=== PATIENT | female | born 1935 | race Caucasian/White ===

== ENCOUNTER 2016-09-22 06:42 | Inpatient (IN) | payer OTHER ==
[2016-09-07 11:49] VITALS: Ht 154.9 cm; Wt 54.8 kg
--- NOTE | 2016-09-07 12:32 | PAT Medication Instructions ---
Service Date September 07, 2016. Current Home Medication List Aspirin (Aspirin), 2 TAB PO BID Calcium Carbonate-Vitamin D (Calcium 600 + D), 1 TAB PO BID Carbidopa-Levodopa (Sinemet Cr 25MG/100MG), 1.5 TAB PO TID Cyanocobalamin (Vitamin B12), 1,000 MCG PO QAM Duloxetine HCl (Cymbalta), Unknown Dose PO QAM Gabapentin (Gabapentin), 1 CAP PO TID Levothyroxine Sodium (Synthroid), 100 MCG PO QAM Metoprolol Succinate (Toprol Xl), 37.5 MG PO QAM Multiple Vitamin (Cvs Daily Multiple), 1 TAB PO QAM Ocuvite Preservision (Ocuvite Preservision), 1 TAB PO BID [place]-3 Fatty Acids (Fish Oil), 1 CAP PO QAM Pantoprazole Sodium (Protonix), 20 MG PO QAM Sennosides-Docusate Sodium (Senna), 1 TAB PO DAILY PRN for NEEDED Tramadol (Ultram), 50 MG PO Q4H PRN for Pain Medication Instructions For Your Scheduled Surgery Aspirin (Aspirin), 2 TAB PO BID (surgeon will call you with instructions) - Hold the following medications 2 weeks prior to surgery: [place]-3 Fatty Acids (Fish Oil), 1 CAP PO QAM - Hold the following medications the morning of surgery: Sennosides-Docusate Sodium (Senna), 1 TAB PO DAILY PRN for NEEDED Ocuvite Preservision (Ocuvite Preservision), 1 TAB PO BID Multiple Vitamin (Cvs Daily Multiple), 1 TAB PO QAM Cyanocobalamin (Vitamin B12), 1,000 MCG PO QAM Calcium Carbonate-Vitamin D (Calcium 600 + D), 1 TAB PO BID - Take the following medications the morning of surgery with a sip of water: Tramadol (Ultram), 50 MG PO Q4H PRN for Pain (can take up to four hours prior to surgery if needed) Pantoprazole Sodium (Protonix), 20 MG PO QAM Levothyroxine Sodium (Synthroid), 100 MCG PO QAM Metoprolol Succinate (Toprol Xl), 37.5 MG PO QAM Gabapentin (Gabapentin), 1 CAP PO TID Duloxetine HCl (Cymbalta), Unknown Dose PO QAM Carbidopa-Levodopa (Sinemet Cr 25MG/100MG), 1.5 TAB PO TID - Take the following medications as scheduled the night before surgery: Tramadol (Ultram), 50 MG PO Q4H PRN for Pain Ocuvite Preservision (Ocuvite Preservision), 1 TAB PO BID Gabapentin (Gabapentin), 1 CAP PO TID Carbidopa-Levodopa (Sinemet Cr 25MG/100MG), 1.5 TAB PO TID Calcium Carbonate-Vitamin D (Calcium 600 + D), 1 TAB PO BID If you have any questions please call us at [phone] or [phone] ( [place]) or [phone]
--- NOTE | 2016-09-07 13:04 | DIAGNOSTIC IMAGING REPORT ---
CHEST 2 VIEWS ROUTINE CLINICAL HISTORY: pat preoperative evaluation COMPARISON STUDY: 09/02/2015 FINDINGS: Chronic pleural and parenchymal change right base. Mild stable cardiomegaly. No focal infiltrate. Several kyphoplasty' s involving the thoracic spine unchanged. IMPRESSION: Chronic change. No acute process. Electronically signed by: Sina Long M.D. 09/07/2016 1:02 PM Dictated Date/Time: 09/07/2016 1:01 PM
[2016-09-07 13:16] LABS: BASO % 0.8 %; BASO ABS # 0.07 K/uL (0-0.2); COMPLETE YES; EOS % 3.5 %; HEMATOCRIT 42.7 % (37-47); IG% 0.2 %; LYMPH % 24.7 %; LYMPH ABS # 2.14 K/uL (1.2-3.4); MEAN CELL VOLUME 92.4 fL (80-100); MEAN CORPUSCULAR HEMOGLOBIN 29.2 pg (25-34); MEAN CORPUSCULAR HGB CONC 31.6 g/dl (32-36); MEAN PLATELET VOLUME 10.6 fL (7.4-10.4); MONO % 21.6 %; NEUT % 49.2 %; PLATELET COUNT 162 K/uL (130-400); RED BLOOD COUNT 4.62 M/uL (4.2-5.4); WHITE BLOOD COUNT 8.66 K/uL (4.8-10.8)
[2016-09-07 13:22] LABS: URINE APPEARANCE TURBID (CLEAR); URINE BILIRUBIN NEG (NEG); URINE COLOR DK YELLOW; URINE NITRITE NEG (NEG); URINE SPECIFIC GRAVITY 1.017 (1.000-1.030); UROBILINOGEN NEG (NEG)
[2016-09-07 13:23] LABS: MANUAL MICROSCOPIC REQUIRED? NO; REVIEW REQ? NO
[2016-09-07 13:26] LABS: BUN/CREATININE RATIO 19.5 (10-20); CALCIUM 8.8 mg/dl (8.5-10.1); CREATININE 0.86 mg/dl (0.60-1.20); POTASSIUM 4.5 mmol/L (3.5-5.1)
[~2016-09-22] VITALS: Ht 154.9 cm; Wt 54.8 kg
[2016-09-22] VITALS (8 sets, daily range): BP systolic 97–136; BP diastolic 56–75; PULSE 61–76; TEMP 36.4–36.8; O2SAT 71–100
[~2016-09-22 06:42] MED LIST: ANCEF: ALLERGY NOTED TO ORDERED MEDICATION SCH; ASPI1TAB83 PO; CALC-20 PO; CARB25TA PO; CEFAZOLIN 1000MG/55 ML D5W IV SCH; CYAN100020 PO; CYM/30 PO; GABA1CAP4 PO; LACTATED RINGER'S 1000ML 1,000 ML IV SCH; LEVO100T PO; METO-478 PO; MULT-190 PO; MULT-978 PO; OMEGCAP2 PO; PRT/20 PO; SENN-12 PO; TRAM-10 PO
[2016-09-22] MEDS ORDERED: EpHEDrine SULFATE INJ 50 MG/ML AMP IV PRN (07:45)
[2016-09-22] MEDS ORDERED: FENTANYL CITRATE INJ 50 MCG/1 ML 2 ML VIAL IV PRN (07:45)
[2016-09-22] MEDS ORDERED: ONDANSETRON INJ 2 MG/ML 2 ML VIAL IV PRN ×2 (07:45→11:30)
[2016-09-22] MEDS ORDERED: ATROPINE SULFATE 0.1 MG/ML 5ML SYR IV PRN (07:45)
[2016-09-22] MEDS ORDERED: MIDAZOLAM HCL 1 MG/ML 2ML VIAL ONE (08:52)
[2016-09-22] MEDS ORDERED: FENTANYL CITRATE INJ 50 MCG/1 ML 2 ML VIAL ONE ×3 (08:52→10:04)
--- NOTE | 2016-09-22 08:58 | History & Physical Bridge Note ---
H&P Re-Evaluation Bridge Note: I have examined the patient, reviewed the History & Physical and in the interval since the performance of the History & Physical I have noted the following changes of clinical significance: No changes noted
--- NOTE | 2016-09-22 08:59 | History and Physical ---
History & Physical Date September 22, 2016. Chief Complaint back and leg pain History of Present Illness The patient is a 81 year old female with complaints of Past Medical/Surgical History Surgical Problems: (1) S/P cholecystectomy Additional History Hepatic Disease: No Endocrine Disorder: No Kidney Disease: No Hypertension: No Heart Disease: No Bleeding Tendencies: No Infectious Diseases: No Allergies Coded Allergies: Erythromycin (Verified Allergy, Mild, HIVES, 09/22/16) Glycopyrrolate (Verified Allergy, Mild, HIVES, 09/22/16) Adhesives (Verified Allergy, Unknown, RASH, BLISTERS, 09/22/16) PT DOES WELL WITH PAPER TAPE Penicillins (Verified Allergy, Unknown, hives, 09/22/16) Hydrocodone (Verified Adverse Reaction, Intermediate, SICK TO STOMACH, ) Home Medications Scheduled Aspirin (Aspirin), 2 TAB PO BID Calcium Carbonate-Vitamin D (Calcium 600 + D), 1 TAB PO BID Carbidopa-Levodopa (Sinemet Cr 25MG/100MG), 1.5 TAB PO TID Cyanocobalamin (Vitamin B12), 1,000 MCG PO QAM Duloxetine HCl (Cymbalta), Unknown Dose PO QAM Gabapentin (Gabapentin), 1 CAP PO TID Levothyroxine Sodium (Synthroid), 100 MCG PO QAM Metoprolol Succinate (Toprol Xl), 37.5 MG PO QAM Multiple Vitamin (Cvs Daily Multiple), 1 TAB PO QAM Ocuvite Preservision (Ocuvite Preservision), 1 TAB PO BID [place]-3 Fatty Acids (Fish Oil), 1 CAP PO QAM Pantoprazole Sodium (Protonix), 20 MG PO QAM Scheduled PRN Sennosides-Docusate Sodium (Senna), 1 TAB PO DAILY PRN for NEEDED Tramadol (Ultram), 50 MG PO Q4H PRN for Pain Physical Examination Skin: warm/dry, no rash Eyes: normal inspection, EOMI, sclerae normal ENT: normal ENT inspection, pharynx normal Head: normocephalic, atraumatic Neck: supple, no adenopathy, trachea midline Respiratory/Chest: lungs clear, normal breath sounds, no respiratory distress Cardiovascular: regular rate, rhythm, no edema, no murmur Abdomen / GI: normal bowel sounds, non tender Back: normal inspection Extremities: normal inspection, normal range of motion Neurologic/Psych: no motor/sensory deficits, alert, normal reflexes, oriented x 3 Diagnosis lumbar stenosis Plan of Treatment decompression fusion L3-4 L4-5
[2016-09-22] MEDS ORDERED: BUPIVACAINE/EPINEPHRINE 0.5% MPF 1:200,000 30 ML VIAL ONE (09:11)
[2016-09-22] MEDS ORDERED: SODIUM CHLORIDE 0.9% PF 50 ML VIAL ONE (09:11)
[2016-09-22] MEDS ORDERED: BACITRACIN 50000 UNIT VIAL ONE (09:11)
[2016-09-22] MEDS ORDERED: CLINDAMYCIN 600 MG/54 ML D5W IV ONE (09:15)
[2016-09-22] MEDS ORDERED: NURSING VERBAL MED ORDER ONE (09:45)
[2016-09-22] MEDS ORDERED: HYDROmorphone INJ 2 MG/ML SYR/VIAL ONE ×2 (09:57→11:18)
[2016-09-22] MEDS ORDERED: LIDOCAINE HCL 2% 2 ML VIAL (20MG/ML) ONE (10:53)
[2016-09-22] MEDS ORDERED: METOPROLOL TARTRATE 1 MG/ML VIAL ONE (10:53)
[2016-09-22] MEDS ORDERED: DEXAMETHASONE SOD INJ 4 MG/ML VIAL ONE (10:53)
[2016-09-22] MEDS ORDERED: ROCURONIUM BROMIDE 10 MG/ML 5 ML VIAL ONE (10:53)
[2016-09-22] MEDS ORDERED: PROPOFOL IV EMULSION 10 MG/ML 20 ML VIAL IV ONE (10:53)
[2016-09-22] MEDS ORDERED: LABETALOL HCL IV 5 MG/ML 20ML IV ONE (10:53)
[2016-09-22] MEDS ORDERED: FLOSEAL HEMOSTATIC MATRIX 10ML TOP ONE (11:03)
--- NOTE | 2016-09-22 11:21 | [facility] Post Operative Brief Note ---
Immediate Operative Summary Operative Date September 22, 2016. Pre-Operative Diagnosis Lumbar Stenosis Post-Operative Diagnosis same as pre-operative Procedure(s) Performed decompression L3-[address] Eligio Wagner Estimated Blood Loss 150ml Findings stenosis Specimens none per surgeon
[2016-09-22] MEDS ORDERED: NEOSTIGMINE METHYLSULFATE 1 MG/ML 10ML VIAL ONE (11:24)
[2016-09-22] MEDS ORDERED: GLYCOPYRROLATE INJ 0.2 MG/ML VIAL ONE (11:24)
[2016-09-22] MEDS ORDERED: ONDANSETRON INJ 2 MG/ML 2 ML VIAL ONE (11:24)
[2016-09-22] MEDS ORDERED: DO NOT ADMINISTER FLU VACCINE PRN ×3 (11:30)
[2016-09-22] MEDS ORDERED: DO NOT ADMINISTER PNEUMOCOCCAL VACCINE PRN ×2 (11:30)
[2016-09-22] MEDS ORDERED: ALUMINUM/MAGNESIUM SUSP 30 ML UDC PO PRN (11:30)
[2016-09-22] MEDS ORDERED: SOD PHOSPHATE/SOD BIPHOSPHATE ENEMA 132 ML BTL PR PRN (11:30)
[2016-09-22] MEDS ORDERED: PROMETHAZINE HCL INJ 12.5 MG in SODIUM CHLORIDE 0.9% 50ML 50 ML IV PRN (11:30)
[2016-09-22] MEDS ORDERED: METOCLOPRAMIDE HCL INJ 5 MG/ML 2 ML VIAL IV PRN (11:30)
[2016-09-22] MEDS ORDERED: DOCUSATE SODIUM/SENNA 50/8.6MG TAB PO PRN ×2 (11:30→12:00)
[2016-09-22] MEDS ORDERED: TRAMADOL HCL 50 MG TAB PO PRN (11:30)
[2016-09-22] MEDS ORDERED: hydrOXYzine HCL 25 MG TAB PO PRN (11:30)
[2016-09-22] MEDS ORDERED: NALOXONE HCL 0.4 MG/1 ML VIAL/CARP IV PRN (11:30)
[2016-09-22] MEDS ORDERED: BISACODYL 10 MG SUPP PR PRN (11:30)
[2016-09-22] MEDS ORDERED: ACETAMINOPHEN 500 MG TAB PO PRN (11:30)
[2016-09-22] MEDS ORDERED: ACETAMINOPHEN IV 100 ML IV PRN (11:30)
[2016-09-22] MEDS ORDERED: FAMOTIDINE 20 MG TAB PO PRN (11:30)
[2016-09-22] MEDS ORDERED: MAGNESIUM HYDROXIDE SUSP 30 ML UDC PO PRN (11:30)
--- NOTE | 2016-09-22 11:38 | DIAGNOSTIC IMAGING REPORT ---
LUMBAR SPINE 2 OR 3 VIEW CLINICAL HISTORY: L3-L5 DECOMP/FUSION/INTERBODY WITH ILIAC BOLTS COMPARISON STUDY: Lumbar spine fluoroscopic images September 11, 2015. FLUOROSCOPY TIME: 4.5 seconds. FINDINGS: Single lateral intraoperative fluoroscopic image demonstrates a previous L4 and L5 kyphoplasty. Linear radiodensities suggest sponges. Surgical retractors are noted. Surgical instrument is directed toward the posterior elements at the L5 level. IMPRESSION: Intraoperative localization, as described above. Surgical instrument directed toward the posterior elements of L5. Electronically signed by: Rudolph Parkinson M.D. 09/22/2016 11:37 AM Dictated Date/Time: 09/22/2016 11:35 AM
--- NOTE | 2016-09-22 12:06 | Anesthesiology Progress Note ---
Anesthesia Post Op Note Date & Time September 22, 2016 at 12:06 Vital Signs Pain Intensity: 0 Vital Signs Past 12 Hours Date Time Temp Pulse Resp B/P Pulse Ox O2 Delivery O2 Flow Rate FiO2 09/22/16 11:32 36.2 95 20 162/82 100 Mask 10 09/22/16 07:14 99 Room Air Notes Mental Status: alert / awake / arousable, participated in evaluation Pt Amnestic to Procedure: Yes Nausea / Vomiting: adequately controlled Pain: adequately controlled Airway Patency, RR, SpO2: stable & adequate BP & HR: stable & adequate Hydration State: stable & adequate Anesthetic Complications: no major complications apparent
--- NOTE | 2016-09-22 12:42 | OPERATIVE REPORT ---
DATE OF OPERATION: 09/22/2016 PREOPERATIVE DIAGNOSIS: Spinal stenosis. POSTOPERATIVE DIAGNOSIS: Same. PROCEDURES PERFORMED: 1. Lumbar decompression, medial facetectomy and foraminotomies, L2-L3, L3-L4, and L4-L5. 2. Posterior spinal fusion, L3-L4 and L4-L5. 3. Placement of locally harvested morcellized autograft in the posterior gutters. 4. Placement of Infuse collagen sponge combined with Mastergraft in the posterior gutters, L3 to L5. SURGEON: Dr. Eligio Wagner. ANESTHESIA: General. DISPOSITION: The patient awakened and taken to PACU in stable condition. HISTORY OF PATIENT'S PROBLEMS: This is a 81-year-old female that presents with above-mentioned diagnosis. After failing an extensive course of nonoperative care, she elected to undergo the above-mentioned procedures. Risks, benefits, pros, cons, and alternatives were outlined in detail preoperatively. DESCRIPTION OF PROCEDURE: The patient was met with preoperatively, the case discussed and all questions addressed. At that point, the patient was taken back to operative suite and after undergoing successful general intubation by the department of anesthesia, she was placed in prone position on Pierce table atop the [place] frame. All bony prominences were well padded and the eyes were inspected to ensure there was no external pressure upon them. At this point, lumbar spine was prepped and draped in the normal sterile fashion. Sharp dissection with the assistance of Bovie electrocautery was performed down to and exposing the lamina and transverse processes of L3, L4 and L5 bilaterally. From a caudal to cephalad fashion, a complete laminectomy of L4 and L3 and partial laminectomy of L2 was performed addressing significant central and lateral recess stenosis as well as foraminal disease with medial facetectomies at L3-L4 and L4-L5 levels bilaterally. After this was complete, transverse processes of L3, L4 and L5 were burred to subcortical bleeding bone. Infuse collagen sponge combined with Mastergraft and locally harvested morcellized autograft was placed in the posterior gutters. A #10 round MRAY drain inserted and incision closed with 1-0 Vicryl in the fascia, 2-0 Vicryl subcutaneously, and 4-0 Monocryl for final skin closure. Steri-Strips and sterile dressing placed. The patient was awakened and taken to PACU in stable condition. I attest to the content of the Intraoperative Record and any orders documented therein. Any exceptio ns are noted below.
[2016-09-22] MEDS: CARBIDOPA/LEVODOPA 25/100MG EXT REL TAB PO SCH ×2 (14:24→20:27)
[2016-09-22] MEDS: SODIUM CHLORIDE 0.9% 1000ML 1,000 ML IV SCH (14:24)
[2016-09-22] MEDS: GABAPENTIN 300 MG CAP PO SCH ×2 (14:25→20:27)
[2016-09-22] MEDS: CLINDAMYCIN IV 600 MG in DEXTROSE 5% ADD-VANTAGE 50ML 50 ML IV SCH (18:27)
[2016-09-22] MEDS: DEXAMETHASONE INJ 6 MG in SYRINGE 0 ML IV SCH (18:27)
[2016-09-22] MEDS: HYDROmorphone INJ 1 MG/ML SYR IV PRN (20:23)
[2016-09-22] MEDS: DOCUSATE SODIUM/SENNA 50/8.6MG TAB PO SCH (20:27)
[2016-09-22] MEDS: ASPIRIN 81 MG ECTAB PO SCH (20:28)
[2016-09-23] VITALS (7 sets, daily range): BP systolic 104–150; BP diastolic 57–69; PULSE 69–82; TEMP 36.3–36.8; O2SAT 91–100
[2016-09-23] MEDS: SODIUM CHLORIDE 0.9% 1000ML 1,000 ML IV SCH (00:14)
[2016-09-23] MEDS: CLINDAMYCIN IV 600 MG in DEXTROSE 5% ADD-VANTAGE 50ML 50 ML IV SCH (01:06)
[2016-09-23] MEDS: DEXAMETHASONE INJ 6 MG in SYRINGE 0 ML IV SCH ×2 (01:06→09:50)
[2016-09-23] MEDS: LEVOTHYROXINE 100 MCG TAB PO SCH (05:32)
[2016-09-23] MEDS: HYDROmorphone INJ 1 MG/ML SYR IV PRN (05:54)
[2016-09-23 06:30] LABS: BASO % 0.1 %; BASO ABS # 0.01 K/uL (0-0.2); COMPLETE YES; HEMATOCRIT 36.3 % (37-47); IG% 0.3 %; LYMPH % 7.6 %; LYMPH ABS # 1.13 K/uL (1.2-3.4); MEAN CELL VOLUME 90.5 fL (80-100); MEAN CORPUSCULAR HEMOGLOBIN 28.7 pg (25-34); MEAN CORPUSCULAR HGB CONC 31.7 g/dl (32-36); MEAN PLATELET VOLUME 10.5 fL (7.4-10.4); MONO % 12.8 %; NEUT % 79.2 %; PLATELET COUNT 155 K/uL (130-400); RED BLOOD COUNT 4.01 M/uL (4.2-5.4); WHITE BLOOD COUNT 14.89 K/uL (4.8-10.8)
[2016-09-23 07:11] LABS: CALCIUM 8.5 mg/dl (8.5-10.1); CREATININE 0.92 mg/dl (0.60-1.20); POTASSIUM 4.5 mmol/L (3.5-5.1)
--- NOTE | 2016-09-23 07:21 | Clinical Documentation Query ---
[facility]. [facility] : CLINICAL DOCUMENTATION QUERY H&P states no past medical history, however, home medication list includes: Aspirin (Aspirin), 2 TAB PO BID Calcium Carbonate-Vitamin D (Calcium 600 + D), 1 TAB PO BID Carbidopa-Levodopa (Sinemet Cr 25MG/100MG), 1.5 TAB PO TID Cyanocobalamin (Vitamin B12), 1,000 MCG PO QAM Duloxetine HCl (Cymbalta), Unknown Dose PO QAM Gabapentin (Gabapentin), 1 CAP PO TID Levothyroxine Sodium (Synthroid), 100 MCG PO QAM Metoprolol Succinate (Toprol Xl), 37.5 MG PO QAM Multiple Vitamin (Cvs Daily Multiple), 1 TAB PO QAM Ocuvite Preservision (Ocuvite Preservision), 1 TAB PO BID [place]-3 Fatty Acids (Fish Oil), 1 CAP PO QAM Pantoprazole Sodium (Protonix), 20 MG PO QAM In your clinical opinion is this patient being managed for/have a history of: ( ) Atrial fibrillation, Parkinson's disease or Parksinonism, depression, IBS with constipation, GERD, osteoporosis ( ) Other explanation of clinical findings (Please Explain) ( ) Unable to determine (Please Define) ( ) Need to Discuss ( ) Not Agree The medical record reflects the following clinical findings, treatment, and risk factors. Clinical Indicators: As above Treatment: As above Risk Factors: n/a Please clarify and document your clinical opinion in the progress notes and discharge summary. Terms such as "probable", "suspected", "likely", "questionable", "possible", or "still to be ruled out" are acceptable. IF IN AGREEMENT, YOU MUST DOCUMENT ABOVE DIAGNOSTIC STATEMENT IN DAILY PROGRESS NOTES AND DISCHARGE SUMMARY. This document is not part of the patient's record. Thank You, Colt Strickland, RN [phone]
[2016-09-23] MEDS: CEROVITE ADV FORMULA TAB PO SCH (08:18)
[2016-09-23] MEDS: ASPIRIN 81 MG ECTAB PO SCH ×2 (08:18→20:46)
[2016-09-23] MEDS: GABAPENTIN 300 MG CAP PO SCH ×3 (08:18→20:46)
[2016-09-23] MEDS: METOPROLOL SUCC 25MG EXT REL TAB PO SCH (08:18)
[2016-09-23] MEDS: OXYCODONE HCL IR 5 MG TAB (IMMEDIATE RELEASE) PO PRN (08:18)
--- NOTE | 2016-09-23 08:18 | PROGRESS NOTE ---
DATE: 09/23/2016 DATE: 09/23/2016. SUBJECTIVE: Postop day 1. Back is controlled. Leg pain improved. Vital signs stable. T-max 36.8. MARY drained 45 mL overnight. Hematocrit this a.m. is 36.3. OBJECTIVE: On exam, she has good strength to , appears quite comfortable. ASSESSMENT: Status post lumbar decompression in situ fusion. PLAN: At this time, will initiate physical therapy, advance her bowel regimen and begin working towards disposition either rehab or home health. The patient understands and agrees.
[2016-09-23] MEDS: PANTOprazole SOD 40 MG TAB PO SCH (08:19)
[2016-09-23] MEDS: CARBIDOPA/LEVODOPA 25/100MG EXT REL TAB PO SCH ×3 (08:19→20:46)
--- NOTE | 2016-09-23 09:28 | Anesthesiology Progress Note ---
Anesthesia Post Op Note Date & Time Sep 23, 2016 at 09:28 Vital Signs Pain Intensity: 6.0 Vital Signs Past 12 Hours Date Time Temp Pulse Resp B/P (MAP) Pulse Ox O2 Delivery O2 Flow Rate FiO2 09/23/16 08:28 99 Room Air 09/23/16 07:33 36.8 82 16 137/61 (86) 99 Room Air 2.0 09/23/16 03:57 36.3 74 16 150/69 (96) 100 Nasal Cannula 2.0 09/22/16 23:28 36.4 74 16 136/75 (95) 99 Nasal Cannula 2.0 Notes Mental Status: alert / awake / arousable, participated in evaluation Pt Amnestic to Procedure: Yes Nausea / Vomiting: adequately controlled Pain: adequately controlled Airway Patency, RR, SpO2: stable & adequate BP & HR: stable & adequate Hydration State: stable & adequate Anesthetic Complications: no major complications apparent
[2016-09-23] MEDS ORDERED: NURSING VERBAL MED ORDER ONE (10:45)
[2016-09-23] MEDS: DOCUSATE SODIUM/SENNA 50/8.6MG TAB PO SCH (20:46)
[2016-09-24] MEDS: POLYETHYLENE (MIRALAX) 17 GM PACK PO SCH ×2 (06:03→12:49)
[2016-09-24] MEDS: LEVOTHYROXINE 100 MCG TAB PO SCH (06:03)
[2016-09-24 07:15] VITALS: BP 155/61; PULSE 84; TEMP 36.4; O2SAT 91
[2016-09-24] MEDS ORDERED: RXC5 PO (07:46)
--- NOTE | 2016-09-24 07:47 | Discharge Instructions ---
Discharge Instructions Date of Service Sep 24, 2016. Admission Reason for Admission: Lumbar Spinal Stenosis Discharge Discharge Diagnosis / Problem: stenosis Discharge Goals Goal(s): Improve function Activity Recommendations Activity Limitations: per Instructions/Follow-up section . Instructions / Follow-Up Instructions / Follow-Up ACTIVITY RECOMMENDATIONS: SELF CARE INSTRUCTIONS AFTER THORACIC/LUMBAR FUSIONS 1. You may walk to your tolerance. It is good exercise for your legs and back. Expect some back and intermittent leg aches and pains. 2. You may perform "counter-top" level activities (make a sandwich, kristal with a project, etc.). 3. No bending or lifting of more than 10 pounds or back twisting of any nature (roll like a log when turning in bed). 4. You may ride in a car for 20-30 minutes at a time. No driving until after your first visit with your doctor. 5. Frequent changes of position and restricting sitting to 30 minutes at a time will help limit the amount of back spasms and stiffness you may experience. 6. You may discontinue the use of ambulatory aids (cane, crutches, etc.) once your strength and confidence allow. 7. You may timber incisor operator the shower and let water strike your incision when you arrive home at least once daily. Do not take a tub bath, sit in a hot tub or go into a swimming pool until after your first recheck in the office. SPECIAL CARE INSTRUCTIONS: VERY IMPORTANT TO READ AND REVIEW A. Your surgical incision has been closed with a cosmetic suture under the skin that will dissolve in about 6 weeks. In 14 days, you can use a pair of clean scissors and cut the suture that is left outside of the skin at the ends of your incision. 1. The small skin tapes can be removed 7 days after surgery if they have not fallen off by that point. 2. You may keep the wound open to air as much as possible to promote healing after post-op day number 5 unless told otherwise by your doctor. 3. If you think the wound looks like it is becoming infected (redness or worsening drainage) and/or you are experiencing fever, chill or worsening back pain and muscle spasms, contact the office so that we may evaluate you as soon as possible. B. Complications are uncommon, but please contact us if you have any signs or symptoms of: 1. wound infection (fever higher than 102.5 degrees F, redness, separation of wound, drainage, or increasing pain from the incision) 2. blood clots in legs (pain, swelling, redness and warmth in legs) 3. urinary tract infection (fever higher than 102.5 degrees F, burning upon urination or increased frequency of urination) 4. nerve problems (inability to walk on your toes or heels, numbness, loss of bowel or bladder control) 5. any other symptoms that concern you C. Please call the office at if you have any concerns or questions about your operation or recovery. D. No smoking! Smoking drastically decreases the chance of a solid fusion. E. Do not take any anti-inflammatory medications (Indocin, Advil, Motrin, Aspirin, Naprosyn, etc.) as these may inhibit the chance of a solid fusion. Tylenol is okay to take for pain. MANAGING PAIN AFTER SPINAL SURGERY 1. Narcotic medication is intended for short-term use and will be provided for surgical pain. Surgical pain usually lasts for a period of 4-6 weeks. Narcotic medication includes Percocet, Vicodin, Darvocet, Tylenol #3 or Lortab. 2. Longer-term pain is more appropriately treated with non-narcotic medication such as Tylenol ES. 3. Muscle spasm is not appropriately treated with narcotics. Muscle relaxers such as Soma, Flexeril or Skelaxin can be used along with Tylenol ES. 4. Remember that we all live with some "aches and pains". This is not unusual or uncommon after an injury or as we get older. a. Back pain is expected and may include muscle spasms for 4 to 6 weeks after surgery. The pain should gradually improve. If the pain worsens for no apparent reason, please contact the office. b. Intermittent leg pain may also be experienced and should not be concerned about unless it worsens for no apparent reason. If so, please contact the office. 5. We will provide appropriate medication within the normal guidelines of their prescribed use. We will also be very cautious and aware of potential abuse and extended duration of patients' medication needs. a. Pain medications are for your comfort and to assist with sleep and rest so that the tissue can heal. They are not provided in order to return to normal activity and should not be used through the day. To do so or worsening pain at night can result from ongoing tissue damage and development of tolerance to the prescribed medicine. 6. Please allow 2-3 days to process refills. Prescriptions will not be mailed but must be picked up at the office. FOLLOW UP VISIT: Keep your scheduled follow-up appointment. Any questions, please call the office at . Current Hospital Diet Patient's current hospital diet: Regular Diet Discharge Diet Recommended Diet: Regular Diet Procedures Procedures Performed: decompression L3-5 Pending Studies Studies pending at discharge: no Medical Emergencies . Who to Call and When: Medical Emergencies: If at any time you feel your situation is an emergency, please call 911 immediately. . Non-Emergent Contact Non-Emergency issues call your: Primary Care Provider . "Provider Documentation" section prepared by Eligio Wagner. . VTE Core Measure Inpt VTE Proph given/why not?: Sunny Nguyen, SCD's
[2016-09-24] MEDS: CEROVITE ADV FORMULA TAB PO SCH (09:46)
[2016-09-24] MEDS: GABAPENTIN 300 MG CAP PO SCH ×2 (09:48→13:36)
[2016-09-24] MEDS: METOPROLOL SUCC 25MG EXT REL TAB PO SCH (09:48)
[2016-09-24] MEDS: ASPIRIN 81 MG ECTAB PO SCH (09:49)
[2016-09-24] MEDS: CARBIDOPA/LEVODOPA 25/100MG EXT REL TAB PO SCH ×2 (09:50→13:36)
[2016-09-24] MEDS: PANTOprazole SOD 40 MG TAB PO SCH (09:50)
[2016-09-24] MEDS: OXYCODONE HCL IR 5 MG TAB (IMMEDIATE RELEASE) PO PRN (12:51)
[2016-09-24 14:37] VITALS: BP 155/61; PULSE 84; TEMP 36.4; O2SAT 91
[2016-09-24 15:12] VITALS: BP 149/77; PULSE 83; TEMP 36.4; O2SAT 95
--- NOTE | 2016-09-24 21:15 | DISCHARGE SUMMARY ---
PREOPERATIVE DIAGNOSIS: Spinal stenosis. HOSPITAL COURSE FOLLOWS: On September 22, the patient underwent lumbar decompression and fusion, tolerated this well and taken to the orthopedic floor postoperatively. Postop day #1, she was up and ambulatory, progressed to postop day #2. MARY drain decreasing appropriately, pain well controlled, subsequently discharged home. Discharge orders and instructions found on the chart for further review.
[2016-09-29] MEDS ORDERED: SENN8.6T96 PO (13:48)
[2016-09-29] MEDS ORDERED: CYAN50002 PO (13:48)
[2016-09-29] MEDS ORDERED: PANT40TA PO (13:48)
[2016-09-29] MEDS ORDERED: DULO60CA44 PO (13:48)
[2016-09-29] MEDS ORDERED: PRLSR20 PO (13:52)
[2016-09-29] MEDS ORDERED: SENN1TAB65 PO (13:52)
[2016-09-29] MEDS ORDERED: OXYB10TA PO (13:52)
[2016-09-29] MEDS ORDERED: FRCT/ PO (13:52)
[2016-09-29] MEDS ORDERED: VITATAB PO (13:52)
[2016-09-29] MEDS ORDERED: CITA40TA12 PO (13:53)
[2016-09-29] MEDS ORDERED: ZOLP5TAB PO (17:37)
== END 2016-09-24 16:20 | disposition home health service (06) | DRG 460 ==
LOC: ENRESERVDT → ENRESERVTM → C.ACU 06:42 → C.3E 09:00
PROVIDERS: ADMIT Orthopaedic Surgery Orthopaedic Surgery of the Spine; ATTEND Orthopaedic Surgery Orthopaedic Surgery of the Spine
PROC: 0SG1071 Fusion of 2 or more Lumbar Vertebral Joints with Autologous Tissue Substitute, Posterior Approach, Posterior Column, Open Approach (ICD-10-PCS; principal; 2016-09-22 09:15)
PROC: 3E0U0GB Introduction of Recombinant Bone Morphogenetic Protein into Joints, Open Approach (ICD-10-PCS; principal; 2016-09-22 09:15)
PROC: 01NB0ZZ Release Lumbar Nerve, Open Approach (ICD-10-PCS; principal; 2016-09-22 09:15)
PROC: 00NY0ZZ Release Lumbar Spinal Cord, Open Approach (ICD-10-PCS; principal; 2016-09-22 09:15)
DX: M48.06 Spinal stenosis, lumbar region (principal); I12.9 Hypertensive chronic kidney disease with stage 1 through stage 4 chronic kidney disease, or unspecified chronic kidney disease; N18.2 Chronic kidney disease, stage 2 (mild); I48.91 Unspecified atrial fibrillation; K21.9 Gastro-esophageal reflux disease without esophagitis; E89.0 Postprocedural hypothyroidism; F41.9 Anxiety disorder, unspecified; F32.9 Major depressive disorder, single episode, unspecified; Z86.73 Personal history of transient ischemic attack (TIA), and cerebral infarction without residual deficits; Z79.82 Long term (current) use of aspirin; Z79.891 Long term (current) use of opiate analgesic; Z79.899 Other long term (current) drug therapy

== ENCOUNTER → 2017-01-31 | Outpatient (CLI) | payer OTHER ==
[~2017-01-31] MED LIST changes: -ANCEF: ALLERGY NOTED TO ORDERED MEDICATION SCH; -CEFAZOLIN 1000MG/55 ML D5W IV SCH; +CITA40TA12 PO; -CYAN100020 PO; +CYAN50002 PO; -CYM/30 PO; +DULO60CA44 PO; +FRCT/ PO; -LACTATED RINGER'S 1000ML 1,000 ML IV SCH; -METO-478 PO; +METO1TAB31 PO; -OMEGCAP2 PO; +OXYB10TA PO; +PANT40TA PO; +PRLSR20 PO; -PRT/20 PO; -SENN-12 PO; +SENN1TAB65 PO; +SENN8.6T11 PO; +VITATAB PO
--- NOTE | 2017-01-31 12:08 | DIAGNOSTIC IMAGING REPORT ---
UPPER GI SERIES AND SMALL BOWEL FOLLOW-THROUGH CLINICAL HISTORY: Abdominal bloating. Reflux. COMPARISON STUDY: Modified barium swallow April 20, 2013. FLUOROSCOPY TIME: 3.4 minutes. FINDINGS: Program Officer image demonstrates multilevel vertebral augmentation with normal bowel gas pattern. Mild esophageal dysmotility was noted. No esophageal mass or stricture was identified. Mild to moderate gastroesophageal reflux was noted. Gastric fold pattern was normal. Jejunal and ileal fold patterns were normal. There was no evidence for a small bowel obstruction. Transit time to the cecum was normal at 2 hours. IMPRESSION: 1. Mild to moderate gastroesophageal reflux. Mild esophageal dysmotility. 2. No esophageal mass or stricture. 3. No evidence for a small bowel obstruction. No small bowel fold abnormality. Electronically signed by: Rudolph Parkinson M.D. 01/31/2017 12:07 PM Dictated Date/Time: 01/31/2017 12:05 PM
== END | disposition home or self-care (01) ==
LOC: C.RAD 08:40
PROVIDERS: ATTEND Nurse Practitioner Family
DX: R14.0 Abdominal distension (gaseous) (principal)

== ENCOUNTER 2017-09-13 10:35 | Emergency (ER) | payer OTHER ==
[~2017-09-13] VITALS: Ht 154.9 cm; Wt 55.5 kg
[~2017-09-13 10:35] MED LIST changes: +GABA-1219 PO; -GABA1CAP4 PO; +METO-478 PO; -METO1TAB31 PO; -SENN8.6T11 PO; +SENN8.6T96 PO
[2017-09-13 10:45] VITALS: TEMP 37.5; Ht 154.9 cm; Wt 55.5 kg
[2017-09-13] MEDS ORDERED: FENTANYL CITRATE INJ 50 MCG/1 ML 2 ML VIAL IV STA (11:09)
[2017-09-13] MEDS ORDERED: SODIUM CHLORIDE 0.9% 1000ML 1,000 ML IV STA (11:09)
[2017-09-13] MEDS ORDERED: ONDANSETRON INJ 2 MG/ML 2 ML VIAL IV STA (11:09)
--- NOTE | 2017-09-13 11:17 | EMERGENCY ROOM VISIT NOTE ---
History Report prepared by Sadia: Felix Handley Under the Supervision of: Dr. Shannon Sales M.D. First contact with patient: 10:49 Chief Complaint: FALL Stated Complaint: FALL/BACK AND SHOULDER PAIN History of Present Illness The patient is an 82 year old female who presents to the Emergency Room with complaints of pain in her right shoulder and right arm that began last night following a falling episode that occurred last night. The patient states that she tripped over a stool in her living room and fell to the ground. She hit her right shoulder and right arm on the TV stand on her way to the ground. She is also experiencing back pain. She was unable to get herself off of the ground following the fall and needed her husbands help to get her into bed. The patient denies hitting her head/LOC. The patient has a history of compression fractures in her back as well as osteoporosis. She has had surgical procedures down on the lower back. Source of History: patient Onset: Last night Position: shoulder (right), arm (right) Quality: other (Trauma from fall ) Timing: other (Falling episode last night) Associated Symptoms: + back pain, No LOC, No headache Review of Systems See HPI for pertinent positives & negatives. A total of 10 systems reviewed and were otherwise negative. Past Medical & Surgical Medical Problems: (1) Lumbar stenosis with neurogenic claudication Surgical Problems: (1) S/P cholecystectomy Family History Patient reports no known family medical history. Social History Smoking Status: Never Smoker Marital Status: Housing Status: lives with significant other Occupation Status: retired Current/Historical Medications Scheduled Aspirin (Aspirin), 81 MG PO BID Calcium Carbonate-Vitamin D (Calcium 600 + D), 1 TAB PO BID Carbidopa-Levodopa (Sinemet Cr 25MG/100MG), 1.5 TAB PO TID Cyanocobalamin (B-12), 5,000 MCG PO QAM Duloxetine Hcl (Cymbalta), 60 MG PO QAM Gabapentin (Gabapentin), 300 MG PO TID Levothyroxine Sodium (Synthroid), 88 MCG PO QAM Metoprolol Succinate (Toprol Xl), 37.5 MG PO QAM Multiple Vitamin (Cvs Daily Multiple), 1 TAB PO QAM Ocuvite Preservision (Ocuvite Preservision), 1 TAB PO BID Vitamins W/ Lipotropics (Balance B-100), 1 TAB PO DAILY Scheduled PRN Sennosides-Docusate Sodium (Doc-Q-Lax), 1 TAB PO DAILY PRN for Constipation Tramadol (Ultram), 50 MG PO Q4H PRN for Pain Allergies Coded Allergies: Erythromycin (Verified Allergy, Mild, HIVES, 09/13/17) Glycopyrrolate (Verified Allergy, Mild, HIVES, 09/13/17) Adhesives (Verified Allergy, Unknown, RASH, BLISTERS, 09/13/17) PT DOES WELL WITH PAPER TAPE Penicillins (Verified Allergy, Unknown, hives, 09/13/17) Hydrocodone (Verified Adverse Reaction, Intermediate, SICK TO STOMACH, ) Physical Exam Vital Signs Date Time Temp Pulse Resp B/P (MAP) Pulse Ox O2 Delivery O2 Flow Rate FiO2 09/13/17 14:34 97 18 128/65 92 09/13/17 13:00 82 18 197/82 99 Room Air 09/13/17 12:13 82 09/13/17 11:23 92 Room Air 09/13/17 11:20 96 22 172/92 93 Room Air 09/13/17 10:45 37.5 87 20 178/92 92 Room Air Physical Exam Vital signs reviewed. General: Well-appearing elderly female, in no significant distress. HEENT: No scleral icterus, PERRLA, neck supple. Atraumatic. Chest: Patient is tender to the anterior chest wall and right humeral head. Cardiovascular: Regular rate and rhythm, no extra sounds. Pulmonary: Clear to auscultation bilaterally, normal work of breathing. Abdomen: Soft, nontender, nondistended, positive bowel sounds. Musculoskeletal: Atraumatic, no peripheral edema. Cervical spine is non-tender. Thoracic spine and lumbar spine are nontender, no step-off or deformity. Well healed old lumbar incision. Equal strength in the bilateral LE. Neurologic: Patient awake alert and oriented x 3 Skin: Warm, dry, no rash Medical Decision & Procedures ER Provider Diagnostic Interpretation: Radiology results as stated below per my review and radiologist interpretation: CT OF THE CERVICAL SPINE WITHOUT CONTRAST CLINICAL HISTORY: Fall with back pain. COMPARISON STUDY: Cervical spine CT September 11, 2015. TECHNIQUE: Helical axial images of the cervical spine were obtained without IV contrast. Sagittal and coronal reconstructions were viewed. A dose lowering technique was utilized adhering to the principles of ALARA. FINDINGS: Alignment of the cervical spine is anatomic. Craniocervical junction is intact. Mild loss of height of the C7 vertebral body is unchanged since previous exam. No acute cervical spine fracture is present. There is no prevertebral edema. Moderate multilevel degenerative disc disease and facet arthrosis is present. A sclerotic lesion within the C7 vertebral body is unchanged since exam of September 11, 2015. This likely reflects a bone island. IMPRESSION: No acute cervical spine fracture or subluxation. Electronically signed by: Rudolph Parkinson M.D. 09/13/2017 12:54 PM Dictated Date/Time: 09/13/2017 12:[address] NON[address]AST CT DOSE: 788.63 mGycm HISTORY: fall TECHNIQUE: Multiaxial CT images of the head were performed without the use of intravenous contrast. Automated exposure control was utilized for this study. A dose lowering technique was utilized adhering to the principles of ALARA. Comparison: Head CT 09/29/2016. Findings: The paranasal sinuses and mastoid air cells are clear. The calvarium and skull base are intact. There is no mass, hematoma, midline shift, acute infarct. White matter hypodensity is nonspecific but suggestive of microvascular ischemic change. The ventricles and sulci demonstrate mild age-related involutional changes. Impression: No significant change compared to the prior study. No acute intracranial abnormality. Electronically signed by: Yeison Montoya M.D. 09/13/2017 12:56 PM Dictated Date/Time: 09/13/2017 12:[address] DOSE: 267.32 mGycm HISTORY: fall with low back pain, lumbar kyphplasty compression fx in pas TECHNIQUE: Multiaxial CT images of the lumbar spine were performed and reformatted in the sagittal and coronal plane without the use of contrast. A dose lowering technique was utilized adhering to the principles of ALARA. COMPARISON: Lumbar spine 09/22/2016. Chest CT 09/11/2015. FINDINGS: Moderate compression deformity at L5 prior vertebroplasty, a mild superior endplate compression deformity at L5 with prior vertebroplasty in the severe compression deformity at T12 with prior vertebroplasty. These remain unchanged and are consistent with old fractures. Moderate superior endplate compression fracture at L3 is not significantly changed and is therefore also likely old. Mild superior endplate compression fracture at L1 and L2 are technically age indeterminate. However, these also favor chronic compression deformities given the associated sclerosis. Posterior decompression L3-L4. Advanced facet degenerative changes throughout the majority of the lumbar spine. No subluxation. No significant disc space narrowing. Best seen on axial image 134 there is a linear lucency along the right side of the L3 inferior endplate. This favors an acute fracture. No significant loss of height at this time. IMPRESSION: 1. An acute inferior endplate fracture at L3 without significant loss of height. 2. Superior endplate compression fracture at L3 is likely old when compared to the prior studies. 3. Mild superior endplate compression deformities at L1 and L2 are technically age indeterminate but also likely old. 4. Vertebroplasty within the old T12, L4, L5 compression deformities. Electronically signed by: Yeison Montoya M.D. 09/13/2017 1:13 PM Dictated Date/Time: 09/13/2017 12:58 PM RIGHT-SIDED RIB SERIES CLINICAL HISTORY: Fall with right-sided chest wall pain. FINDINGS: 4 views from a right-sided rib series are obtained. Correlation is made with chest x-ray dated 09/29/2016. The skeletal structures are osteopenic. There is no radiographic evidence of acute/distracted right-sided rib fracture. There are numerous thoracolumbar compression deformities with evidence of previous multilevel vertebroplasty. The visualized right lung parenchyma appears clear noting basilar atelectasis. The heart is enlarged. Cholecystectomy clips are seen in the right upper quadrant. IMPRESSION: There is no radiographic evidence of acute/distracted right-sided rib fracture. Electronically signed by: Fox Rodríguez M.D. 09/13/2017 1:19 PM Dictated Date/Time: 09/13/2017 1:16 PM RIGHT SHOULDER 3 VIEWS CLINICAL HISTORY: Fall with right shoulder pain. FINDINGS: 3 views of the right shoulder are obtained. No prior studies are available for comparison at the time of dictation. The skeletal structures are osteopenic. There is no radiographic evidence of right shoulder fracture or dislocation. Productive degenerative change is noted at the acromioclavicular joint. A compression deformity with evidence of previous vertebroplasty is noted in the lower thoracic spine. The overlying soft tissues are within normal limits. Imaged right lung parenchyma appears clear. IMPRESSION: 1. There is no radiographic evidence of right shoulder fracture or dislocation. 2. Osteopenia and degenerative change as above. Electronically signed by: Fox Rodríguez M.D. 09/13/2017 1:16 PM Dictated Date/Time: 09/13/2017 1:14 PM Laboratory Results 09/13/17 11:20 Red Blood Count 4.36, Mean Corpuscular Volume 90.1, Mean Corpuscular Hemoglobin 29.6, Mean Corpuscular Hemoglobin Concent 32.8, Mean Platelet Volume 10.0, Neutrophils (%) (Auto) 50.9, Lymphocytes (%) (Auto) 22.7, Monocytes (%) (Auto) 23.7, Eosinophils (%) (Auto) 1.9, Basophils (%) (Auto) 0.4, Neutrophils # (Auto ) 5.14, Lymphocytes # (Auto) 2.30, Monocytes # (Auto) 2.40, Eosinophils # (Auto ) 0.19, Basophils # (Auto) 0.04 09/13/17 11:20 Test 09/13/17 11:20 09/13/17 11:44 White Blood Count 10.11 K/uL (4.8-10.8) Red Blood Count 4.36 M/uL (4.2-5.4) Hemoglobin 12.9 g/dL (12.0-16.0) Hematocrit 39.3 % (37-47) Mean Corpuscular Volume 90.1 fL (80-100) Mean Corpuscular Hemoglobin 29.6 pg (25-34) Mean Corpuscular Hemoglobin Concent 32.8 g/dl (32-36) Platelet Count 141 K/uL (130-400) Mean Platelet Volume 10.0 fL (7.4-10.4) Neutrophils (%) (Auto) 50.9 % Lymphocytes (%) (Auto) 22.7 % Monocytes (%) (Auto) 23.7 % Eosinophils (%) (Auto) 1.9 % Basophils (%) (Auto) 0.4 % Neutrophils # (Auto) 5.14 K/uL (1.4-6.5) Lymphocytes # (Auto) 2.30 K/uL (1.2-3.4) Monocytes # (Auto) 2.40 K/uL (0.11-0.59) Eosinophils # (Auto) 0.19 K/uL (0-0.5) Basophils # (Auto) 0.04 K/uL (0-0.2) RDW Standard Deviation 49.6 fL (36.4-46.3) RDW Coefficient of Variation 15.0 % (11.5-14.5) Immature Granulocyte % (Auto) 0.4 % Immature Granulocyte # (Auto) 0.04 K/uL (0.00-0.02) Anion Gap 4.0 mmol/L (3-11) Est Creatinine Clear Calc Drug Dose 32.5 ml/min Estimated GFR () 58.8 Estimated GFR (Non- 50.7 BUN/Creatinine Ratio 20.5 (10-20) Calcium Level 9.2 mg/dl (8.5-10.1) Magnesium Level 2.0 mg/dl (1.8-2.4) Total Bilirubin 0.6 mg/dl (0.2-1) Direct Bilirubin 0.1 mg/dl (0-0.2) Aspartate Amino Transf (AST/SGOT) 24 U/L (15-37) Alanine Aminotransferase (ALT/SGPT) 20 U/L (12-78) Alkaline Phosphatase 103 U/L (45-117) Total Protein 5.9 gm/dl (6.4-8.2) Albumin 2.9 gm/dl (3.4-5.0) Urine Color YELLOW Urine Appearance TURBID (CLEAR) Urine pH 7.5 (4.5-7.5) Urine Specific Maxwell 1.017 (1.000-1.030) Urine Protein NEG (NEG) Urine Glucose (UA) NEG (NEG) Urine Ketones NEG (NEG) Urine Occult Blood NEG (NEG) Urine Nitrite NEG (NEG) Urine Bilirubin NEG (NEG) Urine Urobilinogen NEG (NEG) Urine Leukocyte Esterase NEG (NEG) Urine WBC (Auto) 1-5 /hpf (0-5) Urine RBC (Auto) 0-4 /hpf (0-4) Urine Hyaline Casts (Auto) 1-5 /lpf (0-5) Urine Epithelial Cells (Auto) 10-20 /lpf (0-5) Urine Bacteria (Auto) NEG (NEG) Laboratory results per my review. Medications Administered Medications (Trade) Dose Ordered Sig/Carito Route Start Time Stop Time Status Last Admin Dose Admin Sodium Chloride 1,000 ml @ 100 mls/hr Q10H STAT IV 09/13/17 11:09 09/13/17 15:01 DC 09/13/17 11:09 100 MLS/HR Fentanyl Citrate (Fentanyl Inj) 50 mcg NOW STAT IV 09/13/17 11:09 09/13/17 11:14 DC 09/13/17 11:33 50 MCG Ondansetron HCl (Zofran Inj) 4 mg NOW STAT IV 09/13/17 11:09 09/13/17 11:14 DC 09/13/17 11:32 4 MG Acetaminophen/ Hydrocodone Bitart ([place] 5/325 Tab) 1 tab NOW STAT PO 09/13/17 13:46 09/13/17 13:47 DC 09/13/17 13:56 1 TAB ECG Per My Interpretation Indication: altered mental status Rate (beats per minute): 93 Rhythm: sinus rhythm Findings: other (No GREY/STD, intraventricular conduction delay, repolarization abnormality in the lateral) ED Course 1105: Past medical records reviewed. The patient was evaluated in room C3. A complete history and physical examination was performed. 1109: Ordered Zofran 4 mg IV, Fentanyl 50 mcg IV, Sodium Chloride 1000 mL @ 100 mL?hr IV. 1346: Ordered Hydrocodone 1 tablet PO. 1356: Patient will have ambulatory trial, will take [place] 1432: Upon reevaluation, the patient appeared to have improvement of her symptoms. I discussed findings with her. She verbalized agreement of the treatment plan. The patient was discharged home. Medical Decision Differential diagnosis: Etiologies such as fracture, dislocation, intra-abdominal, pneumothorax, intrathoracic , intracranial, neurologic, as well as other traumatic pathologies were entertained. This patient was evaluated and appeared to be in no significant distress. She does have some pain with movement particularly of the low back. Patient was hydrated with normal saline solution, given IV fentanyl and Zofran. CT scan of the head and cervical spine was performed without evidence of acute abnormality or fracture. There is significant degenerative change noted. Lumbar spine CT was performed and reveals an inferior endplate fracture of L3 without significant loss of height. The patient was given a [place] tablet and was able to ambulate with minimal assistance. She felt comfortable being discharged to the care of her family. Patient is established with spine surgery and will follow-up for further management. She will see her primary care physician as well. Patient was advised to use Tylenol every 6 hours as needed for pain and Ultram as needed for more severe pain. Patient will return to the ER for worsening of symptoms or any medical concerns. Medication Reconcilliation Current Medication List: was personally reviewed by me Blood Pressure Screening Patient's blood pressure: Elevated blood pressure Blood pressure disposition: Referred to PCP Impression Primary Impression: Fracture of lumbar vertebra, compression Scribe Attestation The scribe's documentation has been prepared under my direction and personally reviewed by me in its entirety. I confirm that the note above accurately reflects all work, treatment, procedures, and medical decision making performed by me. Departure Information Dispostion Home / Self-Care Referrals Laura Bird M.D. (PCP) Forms HOME CARE DOCUMENTATION FORM, IMPORTANT VISIT INFORMATION Patient Instructions My [facility] Additional Instructions Diagnosis: L3 compression fracture Tylenol 650 mg every 6 hours as needed for pain. Ultram 50 mg every 4-6 hours as needed for more severe pain. Use your walker at all times when attempting to ambulate. Contact your spine surgeon, Dr. Wagner, to establish a follow-up appointment. Follow-up with your primary care physician within the next 2 days for reevaluation and consideration of physical therapy. Return to the emergency department for worsening of symptoms or any medical concerns.
[2017-09-13 11:23] VITALS: O2SAT 92
[2017-09-13 11:35] LABS: BASO % 0.4 %; BASO ABS # 0.04 K/uL (0-0.2); EOS % 1.9 %; EOS ABS # 0.19 K/uL (0-0.5); HEMATOCRIT 39.3 % (37-47); HEMOGLOBIN 12.9 g/dL (12.0-16.0); IG# 0.04 K/uL (0.00-0.02); LYMPH % 22.7 %; MEAN CELL VOLUME 90.1 fL (80-100); MEAN CORPUSCULAR HEMOGLOBIN 29.6 pg (25-34); MEAN CORPUSCULAR HGB CONC 32.8 g/dl (32-36); MONO % 23.7 %; NEUT % 50.9 %; NEUT ABS # 5.14 K/uL (1.4-6.5); PLATELET COUNT 141 K/uL (130-400); RED CELL DISTRIBUTION WIDTH SD 49.6 fL (36.4-46.3); WHITE BLOOD COUNT 10.11 K/uL (4.8-10.8)
[2017-09-13 11:49] LABS: ALBUMIN 2.9 gm/dl (3.4-5.0); CALCIUM 9.2 mg/dl (8.5-10.1); CREATININE 1.04 mg/dl (0.60-1.20); POTASSIUM 4.3 mmol/L (3.5-5.1); TOTAL PROTEIN 5.9 gm/dl (6.4-8.2)
[2017-09-13] MEDS ORDERED: LEVO88TA PO (12:12)
--- NOTE | 2017-09-13 12:56 | DIAGNOSTIC IMAGING REPORT ---
CT OF THE CERVICAL SPINE WITHOUT CONTRAST CLINICAL HISTORY: Fall with back pain. COMPARISON STUDY: Cervical spine CT September 11, 2015. TECHNIQUE: Helical axial images of the cervical spine were obtained without IV contrast. Sagittal and coronal reconstructions were viewed. A dose lowering technique was utilized adhering to the principles of ALARA. FINDINGS: Alignment of the cervical spine is anatomic. Craniocervical junction is intact. Mild loss of height of the C7 vertebral body is unchanged since previous exam. No acute cervical spine fracture is present. There is no prevertebral edema. Moderate multilevel degenerative disc disease and facet arthrosis is present. A sclerotic lesion within the C7 vertebral body is unchanged since exam of September 11, 2015. This likely reflects a bone island. IMPRESSION: No acute cervical spine fracture or subluxation. Electronically signed by: Rudolph Parkinson M.D. 09/13/2017 12:54 PM Dictated Date/Time: 09/13/2017 12:50 PM
--- NOTE | 2017-09-13 12:57 | DIAGNOSTIC IMAGING REPORT ---
HEAD CT NONCONTRAST CT DOSE: 788.63 mGycm HISTORY: fall TECHNIQUE: Multiaxial CT images of the head were performed without the use of intravenous contrast. Automated exposure control was utilized for this study. A dose lowering technique was utilized adhering to the principles of ALARA. Comparison: Head CT 09/29/2016. Findings: The paranasal sinuses and mastoid air cells are clear. The calvarium and skull base are intact. There is no mass, hematoma, midline shift, acute infarct. White matter hypodensity is nonspecific but suggestive of microvascular ischemic change. The ventricles and sulci demonstrate mild age-related involutional changes. Impression: No significant change compared to the prior study. No acute intracranial abnormality. Electronically signed by: Yeison Montoya M.D. 09/13/2017 12:56 PM Dictated Date/Time: 09/13/2017 12:49 PM
--- NOTE | 2017-09-13 13:14 | DIAGNOSTIC IMAGING REPORT ---
LUMBAR SPINE CT CT DOSE: 267.32 mGycm HISTORY: fall with low back pain, lumbar kyphplasty compression fx in pas TECHNIQUE: Multiaxial CT images of the lumbar spine were performed and reformatted in the sagittal and coronal plane without the use of contrast. A dose lowering technique was utilized adhering to the principles of ALARA. COMPARISON: Lumbar spine 09/22/2016. Chest CT 09/11/2015. FINDINGS: Moderate compression deformity at L5 prior vertebroplasty, a mild superior endplate compression deformity at L5 with prior vertebroplasty in the severe compression deformity at T12 with prior vertebroplasty. These remain unchanged and are consistent with old fractures. Moderate superior endplate compression fracture at L3 is not significantly changed and is therefore also likely old. Mild superior endplate compression fracture at L1 and L2 are technically age indeterminate. However, these also favor chronic compression deformities given the associated sclerosis. Posterior decompression L3-L4. Advanced facet degenerative changes throughout the majority of the lumbar spine. No subluxation. No significant disc space narrowing. Best seen on axial image 134 there is a linear lucency along the right side of the L3 inferior endplate. This favors an acute fracture. No significant loss of height at this time. IMPRESSION: 1. An acute inferior endplate fracture at L3 without significant loss of height. 2. Superior endplate compression fracture at L3 is likely old when compared to the prior studies. 3. Mild superior endplate compression deformities at L1 and L2 are technically age indeterminate but also likely old. 4. Vertebroplasty within the old T12, L4, L5 compression deformities. Electronically signed by: Yeison Montoya M.D. 09/13/2017 1:13 PM Dictated Date/Time: 09/13/2017 12:58 PM
--- NOTE | 2017-09-13 13:17 | DIAGNOSTIC IMAGING REPORT ---
RIGHT SHOULDER 3 VIEWS CLINICAL HISTORY: Fall with right shoulder pain. FINDINGS: 3 views of the right shoulder are obtained. No prior studies are available for comparison at the time of dictation. The skeletal structures are osteopenic. There is no radiographic evidence of right shoulder fracture or dislocation. Productive degenerative change is noted at the acromioclavicular joint. A compression deformity with evidence of previous vertebroplasty is noted in the lower thoracic spine. The overlying soft tissues are within normal limits. Imaged right lung parenchyma appears clear. IMPRESSION: 1. There is no radiographic evidence of right shoulder fracture or dislocation. 2. Osteopenia and degenerative change as above. Electronically signed by: Fox Rodríguez M.D. 09/13/2017 1:16 PM Dictated Date/Time: 09/13/2017 1:14 PM
--- NOTE | 2017-09-13 13:20 | DIAGNOSTIC IMAGING REPORT ---
RIGHT-SIDED RIB SERIES CLINICAL HISTORY: Fall with right-sided chest wall pain. FINDINGS: 4 views from a right-sided rib series are obtained. Correlation is made with chest x-ray dated 09/29/2016. The skeletal structures are osteopenic. There is no radiographic evidence of acute/distracted right-sided rib fracture. There are numerous thoracolumbar compression deformities with evidence of previous multilevel vertebroplasty. The visualized right lung parenchyma appears clear noting basilar atelectasis. The heart is enlarged. Cholecystectomy clips are seen in the right upper quadrant. IMPRESSION: There is no radiographic evidence of acute/distracted right-sided rib fracture. Electronically signed by: Fox Rodríguez M.D. 09/13/2017 1:19 PM Dictated Date/Time: 09/13/2017 1:16 PM
[2017-09-13] MEDS ORDERED: HYDROCODONE/ACETAMIN 5/325MG TAB PO STA (13:46)
[2017-09-13 14:34] VITALS: BP 128/65; PULSE 97; O2SAT 92
== END 2017-09-13 14:25 | disposition home or self-care (01) ==
LOC: EDBD 10:35 → C.EDC 10:36
DX: S32.018A Other fracture of first lumbar vertebra, initial encounter for closed fracture (principal); S32.028A Other fracture of second lumbar vertebra, initial encounter for closed fracture; S32.038A Other fracture of third lumbar vertebra, initial encounter for closed fracture; M25.511 Pain in right shoulder; M79.601 Pain in right arm; W18.09XA Striking against other object with subsequent fall, initial encounter; Y92.008 Other place in unspecified non-institutional (private) residence as the place of occurrence of the external cause; Z79.82 Long term (current) use of aspirin; Z79.899 Other long term (current) drug therapy

== ENCOUNTER 2017-11-25 10:16 | Emergency (ER) | payer OTHER ==
[~2017-11-25] VITALS: Ht 152.4 cm; Wt 52.0 kg
[~2017-11-25 10:16] MED LIST changes: -CITA40TA12 PO; -FRCT/ PO; -LEVO100T PO; +LEVO88TA PO; -OXYB10TA PO; -PANT40TA PO; -PRLSR20 PO; -SENN1TAB65 PO
[2017-11-25 10:17] VITALS: TEMP 36.5; Ht 152.4 cm; Wt 52.0 kg
[2017-11-25] MEDS ORDERED: METO50TA8 PO (10:50)
[2017-11-25] MEDS ORDERED: SYN100 PO (10:50)
[2017-11-25] MEDS ORDERED: PROB1TAB16 PO (10:50)
[2017-11-25] MEDS ORDERED: ULT50 PO (10:50)
[2017-11-25] MEDS ORDERED: CYM/30 PO (10:50)
[2017-11-25] MEDS ORDERED: CARB25TA12 PO (10:50)
--- NOTE | 2017-11-25 11:39 | DIAGNOSTIC IMAGING REPORT ---
LUMBAR SPINE 5 VIEWS HISTORY: Low back pain eval for fx COMPARISON: Lumbar spine 07/30/2015. Lumbar spine CT 09/13/2017. FINDINGS: Multiple old compression deformities status post vertebroplasty seen at T8, T11, T12, L4, L5. Mild to moderate superior endplate compression deformity at L3 remains unchanged. Therefore, this is likely old. Mild superior endplate compression deformity at L2 has slightly progressed. No subluxation. Mild disc space narrowing at L2-L3, unchanged. Moderate facet degenerative changes throughout the lumbar spine. IMPRESSION: 1. Multiple old compression deformities within the thoracic and lumbar spine as described above status post vertebroplasty. These remain unchanged. 2. Slight progression of the mild superior endplate compression fracture at L2. This is technically age indeterminate but could represent an acute on chronic fracture. 3. No significant change in the moderate superior endplate compression fracture at L3. Therefore, this is chronic. Electronically signed by: Yeison Montoya M.D. 11/25/2017 11:38 AM Dictated Date/Time: 11/25/2017 11:30 AM
[2017-11-25 13:08] VITALS: BP 176/81; PULSE 78; O2SAT 97
--- NOTE | 2017-11-25 15:30 | EMERGENCY ROOM VISIT NOTE ---
History Report prepared by Sadia: Roberto Lopez Under the Supervision of: Dr. Marcel Campos M.D. First contact with patient: 10:22 Chief Complaint: BACK PAIN Stated Complaint: BACK PAIN History of Present Illness The patient is a 82 year old female who presents to the Emergency Room with complaints of constant back pain beginning October 23 and worsening since this morning. The patient reports that she fell in August and was found to have compression fractures in the back. She notes that she followed up with Dr. Wagner, who stated that it should heal on its own. She reports that on October [address] a bumpy road and began to experience pain in the lower back. She denies any recent falls after the one in August. The patient denies pain , numbness or weakness in the legs. She also denies fevers. She reports experiencing urinary incontinence, but notes that this is a chronic issue for her. She denies fecal incontinence. The patient reports that she has been taking Tramadol for the pain. She notes that she received an MRI yesterday in [place] at [facility] and does not currently know the results. The patient states that she has another appointment with Dr. Wagner next week. The patient reports that hydrocodone and oxycodone upset her stomach, and does not want pain medications currently. Source of History: patient Onset: October 23 Position: back Timing: constant (since October 23), worsening (since this morning) Modifying Factors (Worsening): movement Modifying Factors (Relieving): narcotics (Tramadol) Associated Symptoms: No fevers Note: denies leg pain, numbness, or weakness Review of Systems See HPI for pertinent positives & negatives. A total of 10 systems reviewed and were otherwise negative. Past Medical & Surgical Medical Problems: (1) Compression fracture of lumbar vertebra (2) Lumbar stenosis with neurogenic claudication Surgical Problems: (1) S/P cholecystectomy Family History Patient reports no known family medical history. Social History Smoking Status: Never Smoker Marital Status: Housing Status: lives with significant other Occupation Status: retired Current/Historical Medications Scheduled Carbidopa/Levodopa (Sinemet 25MG/100MG), 1.5 TAB PO QID Duloxetine HCl (Cymbalta), 30 MG PO DAILY Levothyroxine Sodium (Synthroid), 100 MCG PO DAILY Metoprolol Succ (Toprol Xl) (Toprol-Xl), 75 MG PO DAILY Probiotic Product (Probiotic), 1 TAB PO DAILY Scheduled PRN Tramadol HCl (Tramadol HCl), 50 MG PO Q4 PRN for Pain Allergies Coded Allergies: Erythromycin (Verified Allergy, Mild, HIVES, 11/25/17) Glycopyrrolate (Verified Allergy, Mild, HIVES, 11/25/17) Adhesives (Verified Allergy, Unknown, RASH, BLISTERS, 11/25/17) PT DOES WELL WITH PAPER TAPE Penicillins (Verified Allergy, Unknown, hives, 11/25/17) Hydrocodone (Verified Adverse Reaction, Intermediate, SICK TO STOMACH, 11/25) Physical Exam Vital Signs Date Time Temp Pulse Resp B/P (MAP) Pulse Ox O2 Delivery O2 Flow Rate FiO2 11/25/17 13:08 78 18 176/81 97 11/25/17 11:33 77 18 170/81 97 Room Air 11/25/17 10:17 36.5 81 18 153/73 96 Room Air Physical Exam Constitutional: Vital signs reviewed. Eyes: Pupils are equal round reactive to light. Conjunctiva are noninjected. ENT: Pharynx is clear without erythema or exudate. Mucous membranes are moist. Neck supple without meningeal signs. Respiratory: Clear to auscultation bilaterally. Breath sounds are equal bilaterally. Cardiovascular: Regular rate and rhythm. No rubs or gallops. GI: Soft, nondistended and nontender. Bowel sounds are present. Musculoskeletal: No midline tenderness or step-off to the lumbar spine. Integumentary: No cyanosis. Neurological: The patient is awake and alert. No focal deficits. Motor and sensation intact in lower extremities. Psychiatric: Normal affect. Medical Decision & Procedures ER Provider Diagnostic Interpretation: Radiology results as stated below per my review and the radiologist's interpretation: LUMBAR SPINE 5 VIEWS HISTORY: Low back pain eval for fx COMPARISON: Lumbar spine 07/30/2015. Lumbar spine CT 09/13/2017. FINDINGS: Multiple old compression deformities status post vertebroplasty seen at T8, T11, T12, L4, L5. Mild to moderate superior endplate compression deformity at L3 remains unchanged. Therefore, this is likely old. Mild superior endplate compression deformity at L2 has slightly progressed. No subluxation. Mild disc space narrowing at L2-L3, unchanged. Moderate facet degenerative changes throughout the lumbar spine. IMPRESSION: 1. Multiple old compression deformities within the thoracic and lumbar spine as described above status post vertebroplasty. These remain unchanged. 2. Slight progression of the mild superior endplate compression fracture at L2. This is technically age indeterminate but could represent an acute on chronic fracture. 3. No significant change in the moderate superior endplate compression fracture at L3. Therefore, this is chronic. Electronically signed by: Yeison Montoya M.D. 11/25/2017 11:38 AM Dictated Date/Time: 11/25/2017 11:30 AM ED Course 1025: The patient was evaluated in room B9. A complete history and physical exam was performed. 1138: The patient's recent MRI showed acute or subacute compression of the L2 superior endplate. Multilevel degenerative change is noted. 1145: I discussed MRI results with the patient. 1229: I attempted to call Dr. Wagner, but I was unable to get into contact with him or his PA. I spoke to the patient, who does not want to wait. She is instructed to follow up next week. The patient will be discharged. Medical Decision This is an 82-year-old female who presents with low back pain. Differential diagnosis includes compression fracture, degenerative disc disease, spinal stenosis, strain. I did perform a limited focused review of portions of the patient's old chart on the electronic medical record. The patient was in the hospital on September 13 for back and shoulder pain after a fall. CT scan showed a compression fracture of L3 and mild compression to L1 and L2. She also has received lumbar effusion and decompression. I did evaluate the patient as noted above. Patient is presenting with persistent low back pain since her fall in August. It was exacerbated while driving [place] a [address] in October. I did order and personally review the patient' s lumbar spine x-rays as described above. She does appear to have progression of her vertebral fracture. I did obtain the MRI results from yesterday. She does have similar findings on MRI. I did attempt to call Dr. Wagner as well as his PA. I was unable to reach them. The patient did not wish to wait any longer. She did not wish to have any stronger pain meds. She states she will just follow-up with Dr. Wagner on Tuesday for her appointment. She was discharged in good condition and given return instructions as outlined below. Medication Reconcilliation Current Medication List: was personally reviewed by me Blood Pressure Screening Patient's blood pressure: Elevated blood pressure Blood pressure disposition: Referred to PCP Impression Primary Impression: Acute exacerbation of chronic low back pain Additional Impression: Compression fracture of lumbar vertebra Scribe Attestation The scribe's documentation has been prepared under my direct and personally reviewed by me in its entirety. I confirm that the note above accurately reflects all work, treatment, procedures, and medical decision making performed by me. Departure Information Dispostion Home / Self-Care Referrals Laura Bird M.D. (PCP) Forms HOME CARE DOCUMENTATION FORM, IMPORTANT VISIT INFORMATION Patient Instructions My [facility] Additional Instructions You have been examined and treated today on an emergency basis only. This is not a substitute for, or an effort to provide, complete comprehensive medical care. It is impossible to recognize and treat all injuries or illnesses in a single emergency department visit. It is therefore important that you follow up closely with Dr. Wagner per your appointment next week. Return for worsening symptoms or if you develop fever, vomiting, loss of control of your bowel, numbness or weakness to your legs, numbness to your private area, difficulty urinating, or any other concerning symptoms. Problem Qualifiers Additional Impression: Compression fracture of lumbar vertebra Encounter type: initial encounter Lumbar vertebra fracture level: L2 Fracture type: closed Qualified Codes: S32.020A - Wedge compression fracture of second lumbar vertebra, initial encounter for closed fracture
== END 2017-11-25 13:10 | disposition home or self-care (01) ==
LOC: C.EDB 10:17
DX: S32.020A Wedge compression fracture of second lumbar vertebra, initial encounter for closed fracture (principal); M47.816 Spondylosis without myelopathy or radiculopathy, lumbar region; R03.0 Elevated blood-pressure reading, without diagnosis of hypertension; Z91.81 History of falling; Z88.1 Allergy status to other antibiotic agents; Z88.8 Allergy status to other drugs, medicaments and biological substances; Z88.0 Allergy status to penicillin; Z88.6 Allergy status to analgesic agent

== ENCOUNTER 2017-12-19 11:30 | Emergency (ER) | payer OTHER ==
[~2017-12-19] VITALS: Ht 152.4 cm; Wt 50.0 kg
[~2017-12-19 11:30] MED LIST changes: -ASPI1TAB83 PO; -CALC-20 PO; -CARB25TA PO; +CARB25TA12 PO; -CYAN50002 PO; +CYM/30 PO; -DULO60CA44 PO; -GABA-1219 PO; -LEVO88TA PO; -METO-478 PO; +METO50TA8 PO; -MULT-190 PO; -MULT-978 PO; +PROB1TAB16 PO; -SENN8.6T96 PO; +SYN100 PO; -TRAM-10 PO; +ULT50 PO; -VITATAB PO
[2017-12-19 11:34] VITALS: TEMP 36.5; Ht 152.4 cm; Wt 50.0 kg
[2017-12-19] MEDS ORDERED: OMEG10007 PO (12:34)
[2017-12-19] MEDS ORDERED: DULO60CA44 PO (12:34)
[2017-12-19] MEDS ORDERED: ASPI-589 PO (12:34)
[2017-12-19] MEDS ORDERED: MULT-190 PO (12:34)
[2017-12-19] MEDS ORDERED: CALC-354 PO (12:34)
[2017-12-19] MEDS ORDERED: MULT-506 PO (12:34)
[2017-12-19] MEDS ORDERED: OMEP20CA9 (12:36)
[2017-12-19] MEDS ORDERED: SODIUM CHLORIDE 0.9% 1000ML 1,000 ML IV STA (12:56)
[2017-12-19] MEDS ORDERED: FENTANYL CITRATE INJ 50 MCG/1 ML 2 ML VIAL IV ONE (13:00)
[2017-12-19 13:32] LABS: BASO % 0.7 %; BASO ABS # 0.08 K/uL (0-0.2); EOS % 1.6 %; EOS ABS # 0.18 K/uL (0-0.5); HEMATOCRIT 43.6 % (37-47); IG# 0.04 K/uL (0.00-0.02); LYMPH % 21.1 %; LYMPH ABS # 2.35 K/uL (1.2-3.4); MEAN CELL VOLUME 91.8 fL (80-100); MEAN CORPUSCULAR HEMOGLOBIN 29.5 pg (25-34); MEAN CORPUSCULAR HGB CONC 32.1 g/dl (32-36); MONO % 23.4 %; MONO ABS # 2.61 K/uL (0.11-0.59); NEUT % 52.8 %; NEUT ABS # 5.89 K/uL (1.4-6.5); PLATELET COUNT 177 K/uL (130-400); RED CELL DISTRIBUTION WIDTH CV 13.3 % (11.5-14.5); RED CELL DISTRIBUTION WIDTH SD 44.4 fL (36.4-46.3); WHITE BLOOD COUNT 11.15 K/uL (4.8-10.8)
[2017-12-19 13:54] LABS: ALBUMIN 3.3 gm/dl (3.4-5.0); CALCIUM 11.7 mg/dl (8.5-10.1); CREATININE 1.12 mg/dl (0.60-1.20); POTASSIUM 4.3 mmol/L (3.5-5.1); TOTAL PROTEIN 6.6 gm/dl (6.4-8.2)
--- NOTE | 2017-12-19 14:02 | DIAGNOSTIC IMAGING REPORT ---
HEAD WITHOUT CONTRAST (CT) CT DOSE: 788.63 mGycm HISTORY: Trauma falls, W[place], facial contustion TECHNIQUE: Multiaxial CT images of the head were performed without the use of intravenous contrast. A dose lowering technique was utilized adhering to the principles of ALARA. Comparison: 09/13/2017 Findings: The paranasal sinuses and mastoid air cells are clear. The calvarium and skull base are intact. The ventricles and sulci are within normal limits. There is no mass, hematoma, midline shift, or acute infarct. Mild age-related chronic small vessel change and atrophy. Impression: No acute intracranial abnormality. Mild age-related change. The above report was generated using voice recognition software. It may contain grammatical, syntax or spelling errors. Electronically signed by: Sina Long M.D. 12/19/2017 2:00 PM Dictated Date/Time: 12/19/2017 1:59 PM
--- NOTE | 2017-12-19 14:40 | DIAGNOSTIC IMAGING REPORT ---
R HIP UNILATERAL 2 VIEWS CLINICAL HISTORY: right hip pain after fall trauma. Pain. COMPARISON: None. DISCUSSION: The bones and joint spaces appear intact. There is no evidence of fracture, dislocation or bony disease. There is no evidence for soft tissue swelling. Moderate degenerative change. IMPRESSION: Moderate degenerative change. No acute bony abnormality. The above report was generated using voice recognition software. It may contain grammatical, syntax or spelling errors. Electronically signed by: Sina Long M.D. 12/19/2017 2:39 PM Dictated Date/Time: 12/19/2017 2:37 PM
--- NOTE | 2017-12-19 14:42 | DIAGNOSTIC IMAGING REPORT ---
L-SPINE MIN 4 VIEWS ROUTINE CLINICAL HISTORY: Worsening back pain. Trauma. History of prior compression fractures. COMPARISON STUDY: November 25, 2017 FINDINGS: The bones are osteopenic. There is evidence for prior vertebroplasty's at the T11, T12, L4, and L5 levels. There are old superior endplate L2 and L3 vertebral body compression fractures. No acute fractures are visualized. There are no subluxations. IMPRESSION: 1. Osteopenia and multiple old vertebral body compression fractures 2. No acute fractures identified on conventional radiographic imaging Electronically signed by: Yuniel Wang M.D. 12/19/2017 2:40 PM Dictated Date/Time: 12/19/2017 2:38 PM
--- NOTE | 2017-12-19 16:15 | EMERGENCY ROOM VISIT NOTE ---
History First contact with patient: 12:07 Chief Complaint: BILATERAL LEG WEAKNESS Stated Complaint: CAN'T WALK, LEGS SHAKEY, HAD COMPRESSED FRACTURES History of Present Illness The patient is a 82 year old female who presents to the Emergency Room with complaints of back pain, right hip pain and generalized weakness of the lower extremities. The patient has been having multiple falls recently and earlier this month was diagnosed with additional lumbar compression fractures. Patient does have history of kyphoplasty done by Dr. Wagner. Most recently, the patient states she stumbled and fell into the wall, but did not hit the ground. She is having significant difficulty bearing weight and states she can only get comfortable when lying flat. She has been taking tramadol for pain without significant relief. Patient denies any loss of consciousness, significant head injury, vomiting or confusion. She denies any new significant loss of bowel or bladder. Review of Systems See HPI for pertinent positives & negatives. A total of 10 systems reviewed and were otherwise negative. Past Medical/Surgical History Medical Problems: (1) Compression fracture of lumbar vertebra (2) Lumbar stenosis with neurogenic claudication Surgical Problems: (1) S/P cholecystectomy Family History Patient reports no known family medical history. Social History Smoking Status: Never Smoker Marital Status: Housing Status: lives with significant other Occupation Status: retired Current/Historical Medications Scheduled Aspirin (Aspirin Adult Low Dose), 1 TAB PO DAILY Calcium Carbonate-Cholecalcife (Caltrate 600+D), 1 TAB PO DAILY Carbidopa/Levodopa (Sinemet 25MG/100MG), 1.5 TAB PO QID Duloxetine Hcl (Cymbalta), 60 MG PO DAILY Fish Oil ([place]-3), 1 CAP PO DAILY Levothyroxine Sodium (Synthroid), 100 MCG PO DAILY Metoprolol Succ (Toprol Xl) (Toprol-Xl), 75 MG PO DAILY Multivitamin (Multivitamin), 1 TAB PO DAILY Ocuvite Preservision (Ocuvite Preservision), 1 TAB PO DAILY Probiotic Product (Probiotic), 1 TAB PO DAILY Scheduled PRN Tramadol HCl (Tramadol HCl), 50 MG PO Q4 PRN for Pain Miscellaneous Medications Omeprazole (Prilosec) Physical Exam Vital Signs Date Time Temp Pulse Resp B/P (MAP) Pulse Ox O2 Delivery O2 Flow Rate FiO2 12/19/17 17:28 68 204/89 95 Room Air 12/19/17 13:30 71 19 186/81 98 Room Air 12/19/17 11:34 36.5 80 20 114/73 94 Room Air Physical Exam Vital signs reviewed. General: Chronically ill-appearing 82-year-old female, in no significant distress. HEENT: No scleral icterus, PERRLA, neck supple. Atraumatic. Postsurgical well- healing subcentimeter wound to the nose, small abrasion to the left nasal bridge. Cardiovascular: Regular rate and rhythm, no extra sounds. Pulmonary: Clear to auscultation bilaterally, normal work of breathing. Abdomen: Soft, nontender, nondistended, positive bowel sounds. Musculoskeletal: Atraumatic, no peripheral edema. Neurologic: Patient awake alert and oriented x 3, cranial nerves II through XII are grossly intact, moves all extremities equally however does require assistance in and out of the bed, with changing. Is able to bear weight with discomfort of the low back. Skin: Warm, dry, no rash Medical Decision & Procedures ER Provider Diagnostic Interpretation: L-SPINE MIN 4 VIEWS ROUTINE CLINICAL HISTORY: Worsening back pain. Trauma. History of prior compression fractures. COMPARISON STUDY: November 25, 2017 FINDINGS: The bones are osteopenic. There is evidence for prior vertebroplasty's at the T11, T12, L4, and L5 levels. There are old superior endplate L2 and L3 vertebral body compression fractures. No acute fractures are visualized. There are no subluxations. IMPRESSION: 1. Osteopenia and multiple old vertebral body compression fractures 2. No acute fractures identified on conventional radiographic imaging Electronically signed by: Yuniel Wang M.D. 12/19/2017 2:40 PM Dictated Date/Time: 12/19/2017 2:38 PM R HIP UNILATERAL 2 VIEWS CLINICAL HISTORY: right hip pain after fall trauma. Pain. COMPARISON: None. DISCUSSION: The bones and joint spaces appear intact. There is no evidence of fracture, dislocation or bony disease. There is no evidence for soft tissue swelling. Moderate degenerative change. IMPRESSION: Moderate degenerative change. No acute bony abnormality. The above report was generated using voice recognition software. It may contain grammatical, syntax or spelling errors. Electronically signed by: Sina Long M.D. 12/19/2017 2:39 PM Dictated Date/Time: 12/19/2017 2:37 PM HEAD WITHOUT CONTRAST (CT) CT DOSE: 788.63 mGycm HISTORY: Trauma falls, [place], facial contustion TECHNIQUE: Multiaxial CT images of the head were performed without the use of intravenous contrast. A dose lowering technique was utilized adhering to the principles of ALARA. Comparison: 09/13/2017 Findings: The paranasal sinuses and mastoid air cells are clear. The calvarium and skull base are intact. The ventricles and sulci are within normal limits. There is no mass, hematoma, midline shift, or acute infarct. Mild age-related chronic small vessel change and atrophy. Impression: No acute intracranial abnormality. Mild age-related change. Laboratory Results 12/19/17 13:22 Red Blood Count 4.75, Mean Corpuscular Volume 91.8, Mean Corpuscular Hemoglobin 29.5, Mean Corpuscular Hemoglobin Concent 32.1, Mean Platelet Volume 11.0, Neutrophils (%) (Auto) 52.8, Lymphocytes (%) (Auto) 21.1, Monocytes (%) (Auto) 23.4, Eosinophils (%) (Auto) 1.6, Basophils (%) (Auto) 0.7, Neutrophils # (Auto ) 5.89, Lymphocytes # (Auto) 2.35, Monocytes # (Auto) 2.61, Eosinophils # (Auto ) 0.18, Basophils # (Auto) 0.08 12/19/17 13:22 Test 12/19/17 13:22 12/19/17 17:17 White Blood Count 11.15 K/uL (4.8-10.8) Red Blood Count 4.75 M/uL (4.2-5.4) Hemoglobin 14.0 g/dL (12.0-16.0) Hematocrit 43.6 % (37-47) Mean Corpuscular Volume 91.8 fL (80-100) Mean Corpuscular Hemoglobin 29.5 pg (25-34) Mean Corpuscular Hemoglobin Concent 32.1 g/dl (32-36) Platelet Count 177 K/uL (130-400) Mean Platelet Volume 11.0 fL (7.4-10.4) Neutrophils (%) (Auto) 52.8 % Lymphocytes (%) (Auto) 21.1 % Monocytes (%) (Auto) 23.4 % Eosinophils (%) (Auto) 1.6 % Basophils (%) (Auto) 0.7 % Neutrophils # (Auto) 5.89 K/uL (1.4-6.5) Lymphocytes # (Auto) 2.35 K/uL (1.2-3.4) Monocytes # (Auto) 2.61 K/uL (0.11-0.59) Eosinophils # (Auto) 0.18 K/uL (0-0.5) Basophils # (Auto) 0.08 K/uL (0-0.2) RDW Standard Deviation 44.4 fL (36.4-46.3) RDW Coefficient of Variation 13.3 % (11.5-14.5) Immature Granulocyte % (Auto) 0.4 % Immature Granulocyte # (Auto) 0.04 K/uL (0.00-0.02) Anion Gap 6.0 mmol/L (3-11) Est Creatinine Clear Calc Drug Dose 28.8 ml/min Estimated GFR () 53.7 Estimated GFR (Non- 46.4 BUN/Creatinine Ratio 27.6 (10-20) Calcium Level 11.7 mg/dl (8.5-10.1) Magnesium Level 2.1 mg/dl (1.8-2.4) Total Bilirubin 0.5 mg/dl (0.2-1) Direct Bilirubin 0.2 mg/dl (0-0.2) Aspartate Amino Transf (AST/SGOT) 22 U/L (15-37) Alanine Aminotransferase (ALT/SGPT) 16 U/L (12-78) Alkaline Phosphatase 126 U/L (45-117) Total Creatine Kinase 16 U/L (26-192) Total Protein 6.6 gm/dl (6.4-8.2) Albumin 3.3 gm/dl (3.4-5.0) Urine Color YELLOW Urine Appearance CLEAR (CLEAR) Urine pH 7.0 (4.5-7.5) Urine Specific [place] 1.010 (1.000-1.030) Urine Protein NEG (NEG) Urine Glucose (UA) NEG (NEG) Urine Ketones NEG (NEG) Urine Occult Blood NEG (NEG) Urine Nitrite NEG (NEG) Urine Bilirubin NEG (NEG) Urine Urobilinogen NEG (NEG) Urine Leukocyte Esterase SMALL (NEG) Urine WBC (Auto) 1-5 /hpf (0-5) Urine RBC (Auto) 0-4 /hpf (0-4) Urine Hyaline Casts (Auto) 1-5 /lpf (0-5) Urine Epithelial Cells (Auto) 10-20 /lpf (0-5) Urine Bacteria (Auto) NEG (NEG) Medications Administered Medications (Trade) Dose Ordered Sig/Carito Route Start Time Stop Time Status Last Admin Dose Admin Fentanyl Citrate (Fentanyl Inj) 25 mcg NOW ONCE IV 12/19/17 13:00 12/19/17 13:01 DC 12/19/17 13:29 25 MCG Sodium Chloride 1,000 ml @ 125 mls/hr Q8H STAT IV 12/19/17 12:56 12/19/17 20:55 12/19/17 13:28 125 MLS/HR ECG Per My Interpretation Indication: weakness Rate (beats per minute): 65 Rhythm: normal sinus Findings: RBBB (incomplete), no acute ischemic change, no ectopy Medical Decision Differential diagnosis: Etiologies such as musculoskeletal, disc herniation, fracture, aortic disease, metastatic disease, cord compression, discitis, infection, renal colic, gastrointestinal, acute exacerbation of chronic back pain, sciatica, cauda equina, as well as others were entertained. This patient was evaluated and appeared to be in no significant distress. Physical examination is consistent with an acute on chronic low back pain. X- rays of the lumbar spine are as above, consistent with previous lumbar spine compression fractures. CT scan of the head is negative. Laboratory work is fairly unrevealing. Urinalysis is negative for acute infection. Patient responded well to 25 mcg of IV fentanyl, has been hydrated with normal saline solution. A referral to [facility] was made and the patient was accepted for further care. She was given a second dose of IV fentanyl for further pain control. Her family will take her to [facility] for inpatient stay. Impression Primary Impression: Acute exacerbation of chronic low back pain Additional Impressions: Compression fracture of lumbar vertebra Fall Leg weakness Departure Information Referrals Laura Bird M.D. (PCP) Patient Instructions My [facility] Problem Qualifiers
[2017-12-19] MEDS ORDERED: FENTANYL CITRATE INJ 50 MCG/1 ML 2 ML VIAL IV STA (17:50)
[2017-12-19 18:52] VITALS: BP 193/102; PULSE 73; O2SAT 94
== END 2017-12-19 19:25 ==
LOC: C.EDB 11:32 → C.EDA 19:25
DX: S32.009A Unspecified fracture of unspecified lumbar vertebra, initial encounter for closed fracture (principal); S00.31XA Abrasion of nose, initial encounter; W18.40XA Slipping, tripping and stumbling without falling, unspecified, initial encounter; Z90.49 Acquired absence of other specified parts of digestive tract; Z79.82 Long term (current) use of aspirin; Z79.899 Other long term (current) drug therapy; G89.29 Other chronic pain

== ENCOUNTER 2020-07-31 18:35 | Inpatient (IN) ==
[2020-07-31 20:45] LABS: INR 1.2 (0.9-1.1); Prothrombin Time 11.7 Seconds (9.0-12.0)
--- NOTE | 2020-07-31 20:52 | XRay Report ---
XR chest 1V portable CLINICAL HISTORY: weakness COMPARISON STUDY: 05/04/2018 FINDINGS: The heart is enlarged. There are subsegmental atelectatic changes at the left lung base. Th ere is no failure. There is no evidence of acute parenchymal consolidation. There is evidence of mult iple prior vertebroplasties.[There is blunting of the right lateral costophrenic angle. A small effus ion cannot be excluded IMPRESSION: 1. No significant change from the prior study 2. Cardiomegaly 2. Equivocal small right pleural effusion ACT 112: Negative or not required by law. Electronically signed by: Yuniel Wang M.D. 07/31/2020 8:51 PM
[2020-07-31 20:57] LABS: Alanine Aminotransferase < 6 U/L (12-78); Albumin Level 3.8 gm/dl (3.4-5.0); Aspartate Aminotransferase 18 U/L (15-37); BUN Creatinine Ratio 17.5 (10-20); Blood Urea Nitrogen 22 mg/dl (7-18); Calcium 13.5 mg/dl (8.5-10.1); Carbon Dioxide 39 mmol/L (21-32); Chloride 98 mmol/L (98-107); Creatinine Clr Calc Pharmacy 26.3 ml/min; Est GFR (African American) 44.8; Est GFR (Non-African American) 38.6; Glucose 125 mg/dl (70-99); Magnesium 1.8 mg/dl (1.8-2.4); Potassium 3.4 mmol/L (3.5-5.1); Sodium 138 mmol/L (136-145)
[2020-07-31 21:08] LABS: Albumin Globulin Ratio 1.6 (0.9-2); Alkaline Phosphatase 73 U/L (45-117); Bilirubin,Total 1.1 mg/dl (0.2-1); Globulin 2.4 gm/dl (2.5-4.0); Total Protein 6.2 gm/dl (6.4-8.2); Troponin I < 0.015 ng/ml (0-0.045)
[2020-07-31] MEDS ORDERED: CALCITONIN SALMON 400 UNITS/2 ML SQ STA (21:08)
[2020-07-31] MEDS ORDERED: SODIUM CHLORIDE 0.9% 1000ML 500 ML IV ONE (21:08)
[2020-07-31] MEDS ORDERED: POTASSIUM CHLORIDE / WTR 10 MEQ/100 ML PLCT IV ONE (21:11)
[2020-07-31] MEDS ORDERED: FUROSEMIDE 40 MG/4 ML VIAL IV STA (21:11)
[2020-07-31 21:22] LABS: T4 Free Thyroxine 1.04 ng/dl (0.8-1.6)
[2020-07-31] MEDS ORDERED: MAGNESIUM SULFATE / D5W 1 GM/100 ML BAG IV STA (21:52)
[2020-07-31] MEDS ORDERED: CALCITONIN SALMON 200 UNITS in SYRINGE 0 ML SQ ONE (22:00)
[2020-07-31] MEDS ORDERED: METOPROLOL SUCC 50MG EXT REL TAB PO STA (22:22)
[2020-07-31 22:23] LABS: Basophils # (auto) 0.09 K/uL (0-0.2); Basophils % (auto) 0.8 %; Eosinophils # (auto) 0.12 K/uL (0-0.5); Eosinophils % (auto) 1.1 %; Hematocrit (blood only) 41.3 % (37-47); Hemoglobin 13.8 g/dL (12.0-16.0); Immature Granulocytes # (auto) 0.04 K/uL (0.00-0.02); Immature Granulocytes % (auto) 0.4 %; Lymphocytes # (auto) 2.74 K/uL (1.2-3.4); Lymphocytes % (auto) 24.1 %; Mean Corpuscular Hemoglobin 31.1 pg (25-34); Mean Corpuscular Hgb Conc 33.4 g/dL (32-36); Mean Platelet Volume 10.5 fL (7.4-10.4); Monocytes % (auto) 18.5 %; Neutrophils # (auto) 6.28 K/uL (1.4-6.5); Neutrophils % (auto) 55.1 %; Platelet Count 138 K/uL (130-400); RDW Standard Deviation 48.1 fL (36.4-46.3); Red Blood Count 4.44 M/uL (4.2-5.4); White Blood Count 11.37 K/uL (4.8-10.8)
[2020-07-31 22:25] LABS: Appearance Urine Clear (Clear); Bilirubin Urine Negative (Negative); Blood Urine Negative (Negative); Color Urine Dark Yellow; Glucose Urine UA Negative (Negative); Influenza A virus by PCR Negative (Neg); Influenza B virus by PCR Negative (Neg); Ketones Urine 1+ (Negative); Leukocyte Esterase Urine 2+ (Negative); Nitrite Urine Negative (Negative); Protein Urine Trace (Negative); RSV by PCR Negative (Neg); SARS CoV2 RNA(COVID-19) InHosp NEGATIVE (Negative); Specific Gravity Urine 1.022 (1.000-1.030); Urobilinogen Urine Negative (Negative); pH Urine 5.5 (4.5-7.5)
[2020-07-31 22:48] LABS: Bacteria Urine Negative (Negative); Epithelial Cell Urine 0-5 /lpf (0-5); RBC Urine 0-4 /hpf (0-4)
[2020-07-31 22:49] LABS: Calcium Oxalate Crystals Urine Present (None Prsent); Renal Epithelial Cells Urine 0-5 /lpf (0-5)
--- NOTE | 2020-07-31 22:54 | History & Physical Report ---
Date of Service July 31, 2020 Assessment & Plan (1) Hypercalcemia: Acute on chronic hypercalcemia ARF secondary to above Hypokalemia secondary to home diuretic Rx, poor p.o. intake Hypertensive urgency secondary to illness, possible functional disability chronic diastolic heart failure (EF 60%, TTE 2019), patient on the dry side PAF/atrial flutter, patient NSR, not on anticoagulation secondary to risk factors as per documentation hyperlipidemia on statin Rx history TIA as per records Parkinson's disease, at baseline as per patient restrictive lung disease as per records hypothyroidism, TSH elevated osteoporosis/chronic compression fractures as per records Hyperglycemia rule out DM Medical telemetry given uncontrolled BP IVF Hold ACEI, home diuretic for now until creatinine back to baseline Hypercalcemia work-up Hold home calcium, vitamin D supplements for now. Nephrology consult Re: Hypercalcemia Facilitate home BP meds, add amlodipine if still uncontrolled Check hemoglobin A1c PT OT eval DVT prophylaxis. Heparin subcu Full code Patient daughter requesting updates from providers. Ms. Virginia Rodriguez, contact #[phone]. Text document was generated using [employer] [place] voice recognition software. It may contain grammatical or spelling errors. Kindly contact undersigned for clarification of any documentation item in question. History of Present Illness Chief Complaint: Heart doctor told me to come as per patient Primary Care Provider: Laura Bird MD History obtained from patient, family, and records. Patient is a fair historian. Medical history significant for chronic diastolic heart failure (EF 60%, TTE 2019), PAF/atrial flutter not on anticoagulation secondary to risk factors, hypertension, hyperlipidemia, history TIA, Parkinson's disease, restrictive lung disease as per records, hypothyroidism, hypercalcemia, osteoporosis/chronic compression fractures status post surgery, anxiety/mood disorder as per records. Last confinement April 2018 for non-ST elevation PR. Patient noted to be hypercalcemic on outpatient blood work since April 2019. Initial serum calcium was 11.6. Low intact PTH. Outpatient serum calcium levels on outpatient blood work above 10 since April 2020. Patient seen at PCPs office 2 weeks ago for fatigue symptoms. Patient napping all day as per family. Patient daughter sure about patient not overdosing on home tablets as she prepares patient's home meds. Patient daughter not sure about tramadol tablet consumption per patient's usual back pain as per patient. Patient's decreased mobility also impacting on patient 's active lifestyle as per daughter. Family expressed worries about patient sleepiness, abdominal bloating, functional decline on outpatient cardiology visit today. Patient sent to the ER for evaluation. Serum calcium noted to be 13.5. NSS, calcitonin administered at the ER. Patient denies chest pain, S OB, headache. Transient headache symptoms from 2 days ago. Patient denies slurred speech. Abdominal distention nothing unusual as per patient. Patient denies more than usual calcium plus D home supplement intake. Daily glass of milk as per patient. 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 Allergies Allergy/AdvReac Type Severity Reaction Status Date / Time adhesive Allergy Mild RASH, Verified 07/31/20 21:23 BLISTERS WITH TAPE erythromycin base Allergy Mild HIVES Verified 07/31/20 21:23 glycopyrrolate Allergy Mild HIVES Verified 07/31/20 21:23 Penicillins Allergy Mild hives Verified 07/31/20 21:23 hydrocodone AdvReac Intermediate SICK TO Verified 07/31/20 21:23 STOMACH acetaminophen [From Vicodin] AdvReac Unknown Gastrointestinal Verified 07/31/20 21:23 Upset Home Medications Medication Instructions Recorded Confirmed Type aspirin 81 mg PO QPM 05/04/18 07/31/20 History carbidopa-levodopa 1.5 tab PO UD 05/04/18 07/31/20 History levothyroxine 100 mcg PO QAM 05/04/18 07/31/20 History multivitamin 1 tab PO QDL 05/04/18 07/31/20 History tramadol 50 mg PO Q6 PRN 05/04/18 07/31/20 History PreserVision AREDS 1 tab PO BID 09/07/18 07/31/20 History lisinopril 20 mg PO QAM 09/07/18 07/31/20 History metoprolol succinate 100 mg PO HS 09/07/18 07/31/20 History sertraline 50 mg PO QAM 09/07/18 07/31/20 History vitamin B complex 1 cap PO QAM 12/28/18 07/31/20 History entacapone 200 mg PO BID 07/31/20 07/31/20 History furosemide 20 mg PO 5XWK 07/31/20 07/31/20 History Past Med/Surg History Medical History (Updated 07/31/20 @ 23:38 by Ashok Mohr MD) Anxiety Atrial fibrillation PLAVIX STOPPED BY DENISE Compression fracture of lumbar vertebra Depression Gastroparesis GERD (gastroesophageal reflux disease) Hiatal hernia History of colon polyps History of gastric ulcer Hypertension Hypothyroidism Macular degeneration of right eye Non-STEMI (non-ST elevated myocardial infarction) 04/2018--follows with Dr. Rehman Osteoarthritis Osteoporosis Parkinson disease Spinal stenosis Transient ischemic attack (TIA) "MANY MANY YRS AGO"F/U DR RIDER?[facility] Surgical History History of cholecystectomy History of colonoscopy History of dilatation and curettage History of esophagogastroduodenoscopy (EGD) History of lumbar surgery NO METAL History of phacoemulsification of cataract of both eyes with intraocular lens implantation History of thyroidectomy benign growth History of tooth extraction Family History Sister Family hx of colon cancer Other No family history of adverse response to anesthesia Social History Smoking Status: Never smoker Second Hand Exposure: No; Hx Alcohol Use: No Hx Substance Use: No Preferred Language: [place] Communication Ability: Effective Offal Roller Required: No Beliefs That Will Affect Care: None Current Living Situation: Spouse Current Living Situation Comment: Lives with Other Information That Helps Us Care for You: No Feels Safe at Home: Yes Safety Concerns: Feels Safe At This Time Assistive Devices: Cane and Walker Review of Systems Review of Systems: As per HPI, all 10 systems reviewed, all other ROS negative Physical Exam 2 Physical Exam: GENERAL: Slightly uncomfortable, frail, no respiratory distress SKIN: Normal color, warm HEENT: [place] palpebral conjunctivae, no ptosis, midfacial erythema, dry buccal mucosa NECK : Supple, no tenderness CHEST : Decreased breath sounds, no tenderness HEART : RRR, no obvious murmurs ABDOMEN: Some distention, nontender EXTREMITIES : No LE swelling/tenderness, no other conspicuous deformities noted NEUROLOGIC : Coherent, no facial asymmetry, mild hearing impairment, no other gross focality Results & Data Results & Data ([facility]) Vital Signs (Past 12 Hours) Vital Signs Temp Pulse Resp BP Pulse Ox 07/31/20 22:19 76 17 191/71 H 97 07/31/20 22:17 90 28 H 194/74 H 93 07/31/20 22:15 78 21 97 07/31/20 22:01 92 H 20 94 07/31/20 22:00 77 19 95 07/31/20 21:45 75 17 196/116 H 93 07/31/20 21:31 74 19 97 07/31/20 21:30 73 21 97 07/31/20 21:28 101 H 21 173/93 H 95 07/31/20 21:19 73 21 94 07/31/20 21:15 73 19 189/73 H 94 07/31/20 18:40 36.4 C L 71 20 153/73 H 97 Laboratory Results Laboratory Results WBC Cancelled 07/31/20 Unknown RBC Cancelled 07/31/20 Unknown Hgb Cancelled 07/31/20 Unknown Hct Cancelled 07/31/20 Unknown MCV Cancelled 07/31/20 Unknown MCH Cancelled 07/31/20 Unknown MCHC Cancelled 07/31/20 Unknown RDW Std Deviation Cancelled 07/31/20 Unknown RDW Coeff of [place] Cancelled 07/31/20 Unknown Plt Count Cancelled 07/31/20 Unknown MPV Cancelled 07/31/20 Unknown Immature Gran % (Auto) Cancelled 07/31/20 Unknown Neut % (Auto) Cancelled 07/31/20 Unknown Lymph % (Auto) Cancelled 07/31/20 Unknown [place] % (Auto) Cancelled 07/31/20 Unknown Eos % (Auto) Cancelled 07/31/20 Unknown Baso % (Auto) Cancelled 07/31/20 Unknown Neut # (Auto) Cancelled 07/31/20 Unknown Lymph # (Auto) Cancelled 07/31/20 Unknown [place] # (Auto) Cancelled 07/31/20 Unknown Eos # (Auto) Cancelled 07/31/20 Unknown Baso # (Auto) Cancelled 07/31/20 Unknown Immature Gran # (Auto) Cancelled 07/31/20 Unknown Absolute Nucleated RBC Cancelled 07/31/20 Unknown Nucleated RBC % (auto) Cancelled 07/31/20 Unknown Neutrophils % (Manual) Cancelled 07/31/20 Unknown Band Neutrophils % Cancelled 07/31/20 Unknown Lymphocytes % (Manual) Cancelled 07/31/20 Unknown Prolymphocyte % Cancelled 07/31/20 Unknown Reactive Lymphs % (Man) Cancelled 07/31/20 Unknown Monocytes % (Manual) Cancelled 07/31/20 Unknown Eosinophils % (Manual) Cancelled 07/31/20 Unknown Basophils % (Manual) Cancelled 07/31/20 Unknown Metamyelocytes % (Man) Cancelled 07/31/20 Unknown Myelocytes % (Man) Cancelled 07/31/20 Unknown Promyelocytes % (Man) Cancelled 07/31/20 Unknown Blast Cells % (Manual) Cancelled 07/31/20 Unknown Plasma Cell % (Manual) Cancelled 07/31/20 Unknown Other Cells % Cancelled 07/31/20 Unknown Nucleated RBC % Cancelled 07/31/20 Unknown Neutrophils # (Manual) Cancelled 07/31/20 Unknown Band Neutrophils # Cancelled 07/31/20 Unknown Total Absolute Neuts Cancelled 07/31/20 Unknown Lymphocytes # (Manual) Cancelled 07/31/20 Unknown Prolymphocyte # Cancelled 07/31/20 Unknown Reactive Lymphs # Cancelled 07/31/20 Unknown Total Abs Lymphocytes Cancelled 07/31/20 Unknown Monocytes # (Manual) Cancelled 07/31/20 Unknown Eosinophils # (Manual) Cancelled 07/31/20 Unknown Basophils # (Manual) Cancelled 07/31/20 Unknown Metamyelocytes # (Man) Cancelled 07/31/20 Unknown Myelocytes # (Manual) Cancelled 07/31/20 Unknown Promyelocytes # (Man) Cancelled 07/31/20 Unknown Blast Cells # (Man) Cancelled 07/31/20 Unknown Plasma Cell # (Manual) Cancelled 07/31/20 Unknown Other Cells # Cancelled 07/31/20 Unknown Nucleated RBCs # (Man) Cancelled 07/31/20 Unknown Hypersegmented Neuts Cancelled 07/31/20 Unknown Hyposegmented Neuts Cancelled 07/31/20 Unknown Hypogranular Neuts Cancelled 07/31/20 Unknown Large Granular Lymphs Cancelled 07/31/20 Unknown # Lrg Granular Lymphs Cancelled 07/31/20 Unknown Hairy Cells Cancelled 07/31/20 Unknown Smudge Cells Cancelled 07/31/20 Unknown Toxic Granulation Cancelled 07/31/20 Unknown Toxic Vacuolation Cancelled 07/31/20 Unknown Dohle Bodies Cancelled 07/31/20 Unknown Jyoti Rods Cancelled 07/31/20 Unknown Platelet Estimate Cancelled 07/31/20 Unknown Hypogranular Platelets Cancelled 07/31/20 Unknown Clumped Platelets Cancelled 07/31/20 Unknown Giant Platelets Cancelled 07/31/20 Unknown Platelet Satelliting Cancelled 07/31/20 Unknown RBC Morphology Cancelled 07/31/20 Unknown Polychromasia Cancelled 07/31/20 Unknown Hypochromasia Cancelled 07/31/20 Unknown Poikilocytosis Cancelled 07/31/20 Unknown Basophilic Stippling Cancelled 07/31/20 Unknown Anisocytosis Cancelled 07/31/20 Unknown Microcytosis Cancelled 07/31/20 Unknown Macrocytosis Cancelled 07/31/20 Unknown Spherocytes Cancelled 07/31/20 Unknown Pappenheimer Bodies Cancelled 07/31/20 Unknown Sickle Cells Cancelled 07/31/20 Unknown Target Cells Cancelled 07/31/20 Unknown Tear Drop Cells Cancelled 07/31/20 Unknown Ovalocytes Cancelled 07/31/20 Unknown Stomatocytes Cancelled 07/31/20 Unknown [place] Bodies Cancelled 07/31/20 Unknown Echinocytes Cancelled 07/31/20 Unknown Acanthocytes (Spur) Cancelled 07/31/20 Unknown Rouleaux Cancelled 07/31/20 Unknown RBC Agglutinates Cancelled 07/31/20 Unknown Schistocytes Cancelled 07/31/20 Unknown RBC Morph Comment Cancelled 07/31/20 Unknown Sezary Cell Cancelled 07/31/20 Unknown PT 11.7 Seconds (9.0-12.0) 07/31/20 Unknown INR 1.2 (0.9-1.1) H 07/31/20 Unknown Sodium 138 mmol/L (136-145) 07/31/20 Unknown Potassium 3.4 mmol/L (3.5-5.1) L 07/31/20 Unknown Chloride 98 mmol/L (98-107) 07/31/20 Unknown Carbon Dioxide 39 mmol/L (21-32) H 07/31/20 Unknown Anion Gap 1.0 (3-11) L 07/31/20 Unknown BUN 22 mg/dl (7-18) H 07/31/20 Unknown Creatinine 1.28 mg/dl (0.6-1.2) H 07/31/20 Unknown Est Cr Clr Drug Dosing 26.3 ml/min 07/31/20 Unknown Est GFR ( Amer) 44.8 07/31/20 Unknown Est GFR (Non-Af Amer) 38.6 07/31/20 Unknown BUN/Creatinine Ratio 17.5 (10-20) 07/31/20 Unknown Glucose 125 mg/dl (70-99) H 07/31/20 Unknown Calcium 13.5 mg/dl (8.5-10.1) H* 07/31/20 Unknown Magnesium 1.8 mg/dl (1.8-2.4) 07/31/20 Unknown Total Bilirubin 1.1 mg/dl (0.2-1) H 07/31/20 Unknown AST 18 U/L (15-37) 07/31/20 Unknown ALT < 6 U/L (12-78) L 07/31/20 Unknown Alkaline Phosphatase 73 U/L (45-117) 07/31/20 Unknown Troponin I < 0.015 ng/ml (0-0.045) 07/31/20 Unknown Total Protein 6.2 gm/dl (6.4-8.2) L 07/31/20 Unknown Albumin 3.8 gm/dl (3.4-5.0) 07/31/20 Unknown Globulin 2.4 gm/dl (2.5-4.0) L 07/31/20 Unknown Albumin/Globulin Ratio 1.6 (0.9-2) 07/31/20 Unknown TSH 11.200 uIu/ml (0.300-4.500) H 07/31/20 Unknown Free T4 1.04 ng/dl (0.8-1.6) 07/31/20 Unknown Specimen Hemolysis 07/31/20 Unknown Urine Color Dark Yellow 07/31/20 Unknown Urine Appearance Clear (Clear) 07/31/20 Unknown Urine pH 5.5 (4.5-7.5) 07/31/20 Unknown Ur Specific [place] 1.022 (1.000-1.030) 07/31/20 Unknown Urine Protein Trace (Negative) H 07/31/20 Unknown Urine Glucose (UA) Negative (Negative) 07/31/20 Unknown Urine Ketones 1+ (Negative) H 07/31/20 Unknown Urine Blood Negative (Negative) 07/31/20 Unknown Urine Nitrite Negative (Negative) 07/31/20 Unknown Urine Bilirubin Negative (Negative) 07/31/20 Unknown Urine Urobilinogen Negative (Negative) 07/31/20 Unknown Ur Leukocyte Esterase 2+ (Negative) H 07/31/20 Unknown Urine RBC 0-4 /hpf (0-4) 07/31/20 Unknown Urine WBC 5-10 /hpf (0-5) H 07/31/20 Unknown Ur Epithelial Cells 0-5 /lpf (0-5) 07/31/20 Unknown Ur Renal Epithelial Cell 0-5 /lpf (0-5) 07/31/20 Unknown Calcium Oxalate Crystal Present (None Prsent) A 07/31/20 Unknown Urine Bacteria Negative (Negative) 07/31/20 Unknown COVID-19 Eval Order CovFluRsv at [facility] 07/31/20 Unknown SARS-CoV-2 (PCR) NEGATIVE (Negative) 07/31/20 Unknown Influenza Type A (PCR) Negative (Neg) 07/31/20 Unknown Influenza Type B (PCR) Negative (Neg) 07/31/20 Unknown RSV (RT-PCR) Negative (Neg) 07/31/20 Unknown Impressions Chest X-Ray 07/31/20 20:23 XR chest 1V portable CLINICAL HISTORY: weakness COMPARISON STUDY: 05/04/2018 FINDINGS: The heart is enlarged. There are subsegmental atelectatic changes at the left lung base. There is no failure. There is no evidence of acute parenchymal consolidation. There is evidence of multiple prior vertebroplasties.[There is blunting of the right lateral costophrenic angle. A small effusion cannot be excluded IMPRESSION: 1. No significant change from the prior study 2. Cardiomegaly 2. Equivocal small right pleural effusion ACT 112: Negative or not required by law. Electronically signed by: Yuniel Wang M.D. 07/31/2020 8:[address] head initial read: No acute intracranial hemorrhage or CT evidence of acute territorial infarct. Hypoattenuation right head of caudate and left anterior limb of internal capsule likely represent sequela of lacunar infarction favored to be chronic. Age- related generalized cerebral volume loss, chronic microvascular ischemic changes. CT abdomen pelvis initial read: No acute findings. No bowel obstruction. Unremarkable appendix. Cardiomegaly. Mild coronary artery and aortic valvular calcifications. Possible trace pericardial effusion. Small right trace left pleural effusion with right greater than the left pleural calcifications possible previous asbestosis. Hepatomegaly. EKG as per my interpretation:Rate 70, NSR, normal axis, 1 AVB, incomplete RBBB T wave abnormalities septal and lateral leads
[2020-07-31 22:55] LABS: Phosphorus 3.8 mg/dl (2.5-4.9)
[2020-07-31] MEDS ORDERED: POTASSIUM CHLORIDE 40 MEQ in SODIUM CHLORIDE 0.9% 1000ML 1,000 ML IV ONE (23:01)
[2020-07-31] MEDS: METOPROLOL SUCC 50MG EXT REL TAB PO STA (23:19)
--- NOTE | 2020-07-31 23:41 | Emergency Department Note ---
Impression & Plan Hypercalcemia, Fatigue ED Provider Note NAME: CHUCKIE WATSON AGE: 85 SEX: F : 1935 ARRIVES VIA: Walk-In INFORMANT: Patient, ED PROVIDER(S): Ashok Mohr MD Chief Complaint: Fatigued, doctor referral HPI: Patient does present with concern for fatigue he was recently seen in the outpatient setting by Sina Rehman with cardiology. The patient has had increasing sleepiness and fatigue. The patient has had decreased p.o. intake. Patient also has had chronic back pain. Patient denies any chest pains and states that she is able to lay flat without any issues. Patient has reportedly been forgetting to take her medications. Patient states sometimes she has been taking them other times she has not. Patient has had decreased energy and is not as wakeful per the patient's who is at bedside. Patient denies any fevers or chills. Patient denies any abdominal pain. Patient states that the fatigue is been ongoing but the states that over the last 3 to 4 days it has gotten progressively worse. She has had decreased exercise tolerance. ROS: See HPI for pertinent positives and negatives. A total of 10 systems were reviewed and otherwise negative. Past medical history: See below Surgical history: See below Social history: See below Physical Exam: GENERAL: Wearing glasses and a mask. NAD, non-toxic. EYE EXAM: Normal conjunctiva. PERRL, no anisocoria and EOM's grossly intact w/o pain. NECK: Supple, no nuchal rigidity, no adenopathy, non-tender. No signs of meningismus. LUNGS: Bibasilar crackles noted. HEART: NSR, no MRG. ABDOMEN: Abdomen soft, non-tender, normo-active bowel sounds, no masses, no rebound or guarding. BACK: No CVA TTP. SKIN: No rashes and no bruising. UPPER EXTREMITIES: Upper extremities are grossly normal. LOWER EXTREMITIES: Grossly normal, no edema. NEURO EXAM: A&O x3, cranial nerves II-XII grossly intact, normal speech, moves all 4 extremities on command w/o issue. Differential diagnoses: Infection, dehydration, metabolic abnormality, hy po/hyperglycemia, electrolyte disturbance, anemia, hypoxia, cardiac sources, intracerebral event, toxicologic, neurologic, as well as other pathologies. Course: Patient was seen and evaluated the bedside. Full history physical exam was performed. EKG: Indication: Shortness of breath Normal sinus rhythm, rate of 68, wide QRS, normal axis. Imaging Studies: See below Cardiac monitoring: An order was placed for continuous cardiac monitoring. The monitor shows a rate of 74 with sinus rhythm. MDM: Patient does present at the outpatient referral due to increasing weakness and lethargy. The patient does have a known history of CVA and A. fib. Patient reportedly had an echo completed during hospitalization in April 2018 which showed hypokinesis and LVEF of 35%. Repeat echo did show normalization of LV systolic function. Outpatient provider and patient did discuss outpatient versus ER follow-up and shows ER follow-up. Did have blood work completed along with an EKG troponin chest x-ray. Patient's chest x-ray does show right pleural effusion. Patient is a white count of 11 with normal H&H and platelet count. The patient's kidney function shows creatinine 1.2 potassium 3.4. Patient's calcium is elevated at 13.5. Patient not complain of any dysuria. Covid flu and RSV negative. Given the patient's hypercalcemia and hypokalemia the patient was ordered Lasix IV potassium as well as calcitonin small amount of IV fluids. I did speak with the on-call hospitalist Dr. Blanco and the patient was admitted to the medicine service. Patient's home metoprolol was ordered. Past Med/Surg History Medical History (Updated 07/31/20 @ 23:38 by Ashok Mohr MD) Anxiety Atrial fibrillation PLAVIX STOPPED BY DENISE Compression fracture of lumbar vertebra Depression Gastroparesis GERD (gastroesophageal reflux disease) Hiatal hernia History of colon polyps History of gastric ulcer Hypertension Hypothyroidism Macular degeneration of right eye Non-STEMI (non-ST elevated myocardial infarction) 04/2018--follows with Dr. Rehman Osteoarthritis Osteoporosis Parkinson disease Spinal stenosis Transient ischemic attack (TIA) "MANY MANY YRS AGO"F/U DR RIDER?[facility] Surgical History History of cholecystectomy History of colonoscopy History of dilatation and curettage History of esophagogastroduodenoscopy (EGD) History of lumbar surgery NO METAL History of phacoemulsification of cataract of both eyes with intraocular lens implantation History of thyroidectomy benign growth History of tooth extraction Family History Sister Family hx of colon cancer Other No family history of adverse response to anesthesia Social History Smoking Status: Never smoker Second Hand Exposure: No; Hx Alcohol Use: No Hx Substance Use: No Preferred Language: Tanzanian Communication Ability: Effective Kick Press Operator Required: No Beliefs That Will Affect Care: None Current Living Situation: Parent Current Living Situation Comment: Lives with Feels Safe at Home: Yes Assistive Devices: Cane and Glasses Allergies Allergies Allergy/AdvReac Type Severity Reaction Status Date / Time adhesive Allergy Mild RASH, Verified 07/31/20 21:23 BLISTERS WITH TAPE erythromycin base Allergy Mild HIVES Verified 07/31/20 21:23 glycopyrrolate Allergy Mild HIVES Verified 07/31/20 21:23 Penicillins Allergy Mild hives Verified 07/31/20 21:23 hydrocodone AdvReac Intermediate SICK TO Verified 07/31/20 21:23 STOMACH acetaminophen [From Vicodin] AdvReac Unknown Gastrointestinal Verified 07/31/20 21:23 Upset Home Meds Home Medications Medication Instructions Recorded Confirmed aspirin 81 mg PO QPM 05/04/18 07/31/20 carbidopa-levodopa 1.5 tab PO UD 05/04/18 07/31/20 levothyroxine 100 mcg PO QAM 05/04/18 07/31/20 multivitamin 1 tab PO QDL 05/04/18 07/31/20 tramadol 50 mg PO Q6 PRN 05/04/18 07/31/20 PreserVision AREDS 1 tab PO BID 09/07/18 07/31/20 lisinopril 20 mg PO QAM 09/07/18 07/31/20 metoprolol succinate 100 mg PO HS 09/07/18 07/31/20 sertraline 50 mg PO QAM 09/07/18 07/31/20 vitamin B complex 1 cap PO QAM 12/28/18 07/31/20 entacapone 200 mg PO BID 07/31/20 07/31/20 furosemide 20 mg PO [id number] 07/31/20 07/31/20 Results & Data (ED) Vital Signs Vital Signs - 24 hr 07/31/20 18:40 07/31/20 21:15 07/31/20 21:19 Temperature 36.4 C L Temperature Source Temporal Artery Scan Pulse Rate 71 73 73 Pulse Rate from SpO2 Sensor 74 73 Respiratory Rate 20 19 21 Blood Pressure 153/73 H 189/73 H Blood Pressure Mean 99 111 Blood Pressure Position Sitting Pulse Oximetry 97 94 94 Oxygen Delivery Method Room Air Sepsis Recent Fever Within 48 Hours No Sepsis New/Unexplained Change in Mental Status N/A Sepsis Action Taken by Nursing No Action Required 07/31/20 21:28 07/31/20 21:30 07/31/20 21:31 Temperature Temperature Source Pulse Rate 101 H 73 74 Pulse Rate from SpO2 Sensor 79 73 74 Respiratory Rate 21 21 19 Blood Pressure 173/93 H Blood Pressure Mean 119 Blood Pressure Position Pulse Oximetry 95 97 97 Oxygen Delivery Method Sepsis Recent Fever Within 48 Hours Sepsis New/Unexplained Change in Mental Status Sepsis Action Taken by Nursing 07/31/20 21:45 07/31/20 22:00 07/31/20 22:01 Temperature Temperature Source Pulse Rate 75 77 92 H Pulse Rate from SpO2 Sensor 76 76 79 Respiratory Rate 17 19 20 Blood Pressure 196/116 H Blood Pressure Mean 142 Blood Pressure Position Pulse Oximetry 93 95 94 Oxygen Delivery Method Sepsis Recent Fever Within 48 Hours Sepsis New/Unexplained Change in Mental Status Sepsis Action Taken by Nursing 07/31/20 22:15 07/31/20 22:17 07/31/20 22:19 Temperature Temperature Source Pulse Rate 78 90 76 Pulse Rate from SpO2 Sensor 78 78 76 Respiratory Rate 21 28 H 17 Blood Pressure 194/74 H 191/71 H Blood Pressure Mean 114 111 Blood Pressure Position Pulse Oximetry 97 93 97 Oxygen Delivery Method Sepsis Recent Fever Within 48 Hours Sepsis New/Unexplained Change in Mental Status Sepsis Action Taken by Nursing 07/31/20 22:45 07/31/20 23:00 Temperature Temperature Source Pulse Rate 77 74 Pulse Rate from SpO2 Sensor 78 74 Respiratory Rate 19 15 Blood Pressure 204/77 H 194/88 H Blood Pressure Mean 119 123 Blood Pressure Position Pulse Oximetry 97 95 Oxygen Delivery Method Room Air Room Air Sepsis Recent Fever Within 48 Hours Sepsis New/Unexplained Change in Mental Status Sepsis Action Taken by [place]way Medications Current Medication List: was personally reviewed by me Laboratory Data Attestation: I reviewed the patient's lab results. Result diagrams: 07/31/20 22:13 07/31/20 Unknown Lab Results 07/31/20 07/31/20 07/31/20 Range/Units 22:13 Unknown Unknown WBC 11.37 H Cancelled (4.8-10.8) K/uL RBC 4.44 Cancelled (4.2-5.4) M/uL Hgb 13.8 Cancelled (12.0-16.0) g/dL Hct 41.3 Cancelled (37-47) % MCV 93.0 Cancelled (80-100) fL MCH 31.1 Cancelled (25-34) pg MCHC 33.4 Cancelled (32-36) g/dL RDW Std Deviation 48.1 H Cancelled (36.4-46.3) fL RDW Coeff of Constant[place] 14.0 Cancelled (11.5-14.5) % Plt Count 138 Cancelled (130-400) K/uL MPV 10.5 H Cancelled (7.4-10.4) fL Immature Gran % (Auto) 0.4 Cancelled % Neut % (Auto) 55.1 Cancelled % Lymph % (Auto) 24.1 Cancelled % [place] % (Auto) 18.5 Cancelled % Eos % (Auto) 1.1 Cancelled % Baso % (Auto) 0.8 Cancelled % Neut # (Auto) 6.28 Cancelled (1.4-6.5) K/uL Lymph # (Auto) 2.74 Cancelled (1.2-3.4) K/uL [place] # (Auto) 2.10 H Cancelled (0.11-0.59) K/uL Eos # (Auto) 0.12 Cancelled (0-0.5) K/uL Baso # (Auto) 0.09 Cancelled (0-0.2) K/uL Immature Gran # (Auto) 0.04 H Cancelled (0.00-0.02) K/uL Absolute Nucleated RBC Cancelled Nucleated RBC % (auto) Cancelled Neutrophils % (Manual) Cancelled Band Neutrophils % Cancelled Lymphocytes % (Manual) Cancelled Prolymphocyte % Cancelled Reactive Lymphs % (Man) Cancelled Monocytes % (Manual) Cancelled Eosinophils % (Manual) Cancelled Basophils % (Manual) Cancelled Metamyelocytes % (Man) Cancelled Myelocytes % (Man) Cancelled Promyelocytes % (Man) Cancelled Blast Cells % (Manual) Cancelled Plasma Cell % (Manual) Cancelled Other Cells % Cancelled Nucleated RBC % Cancelled Neutrophils # (Manual) Cancelled Band Neutrophils # Cancelled Total Absolute Neuts Cancelled Lymphocytes # (Manual) Cancelled Prolymphocyte # Cancelled Reactive Lymphs # Cancelled Total Abs Lymphocytes Cancelled Monocytes # (Manual) Cancelled Eosinophils # (Manual) Cancelled Basophils # (Manual) Cancelled Metamyelocytes # (Man) Cancelled Myelocytes # (Manual) Cancelled Promyelocytes # (Man) Cancelled Blast Cells # (Man) Cancelled Plasma Cell # (Manual) Cancelled Other Cells # Cancelled Nucleated RBCs # (Man) Cancelled Hypersegmented Neuts Cancelled Hyposegmented Neuts Cancelled Hypogranular Neuts Cancelled Large Granular Lymphs Cancelled # Lrg Granular Lymphs Cancelled Hairy Cells Cancelled Smudge Cells Cancelled Toxic Granulation Cancelled Toxic Vacuolation Cancelled Dohle Bodies Cancelled Jyoti Rods Cancelled Platelet Estimate Cancelled Hypogranular Platelets Cancelled Clumped Platelets Cancelled Giant Platelets Cancelled Platelet Satelliting Cancelled RBC Morphology Cancelled Polychromasia Cancelled Hypochromasia Cancelled Poikilocytosis Cancelled Basophilic Stippling Cancelled Anisocytosis Cancelled Microcytosis Cancelled Macrocytosis Cancelled Spherocytes Cancelled Pappenheimer Bodies Cancelled Sickle Cells Cancelled Target Cells Cancelled Tear Drop Cells Cancelled Ovalocytes Cancelled Stomatocytes Cancelled [place] Bodies Cancelled Echinocytes Cancelled Acanthocytes (Spur) Cancelled Rouleaux Cancelled RBC Agglutinates Cancelled Schistocytes Cancelled RBC Morph Comment Cancelled Sezary Cell Cancelled PT (9.0-12.0) Seconds INR (0.9-1.1) Sodium 138 (136-145) mmol/L Potassium 3.4 L (3.5-5.1) mmol/L Chloride 98 (98-107) mmol/L Carbon Dioxide 39 H (21-32) mmol/L Anion Gap 1.0 L (3-11) BUN 22 H (7-18) mg/dl Creatinine 1.28 H (0.6-1.2) mg/dl Est Cr Clr Drug Dosing 26.3 ml/min Est GFR ( Amer) 44.8 Est GFR (Non-Af Amer) 38.6 BUN/Creatinine Ratio 17.5 (10-20) Glucose 125 H (70-99) mg/dl Calcium 13.5 H* (8.5-10.1) mg/dl Phosphorus 3.8 (2.5-4.9) mg/dl Magnesium 1.8 (1.8-2.4) mg/dl Total Bilirubin 1.1 H (0.2-1) mg/dl AST 18 (15-37) U/L ALT < 6 L (12-78) U/L Alkaline Phosphatase 73 (45-117) U/L Troponin I < 0.015 (0-0.045) ng/ml Total Protein 6.2 L (6.4-8.2) gm/dl Albumin 3.8 (3.4-5.0) gm/dl Globulin 2.4 L (2.5-4.0) gm/dl Albumin/Globulin Ratio 1.6 (0.9-2) TSH 11.200 H (0.300-4.500) uIu/ml Free T4 1.04 (0.8-1.6) ng/dl Specimen Hemolysis Urine Color Urine Appearance (Clear) Urine pH (4.5-7.5) Ur Specific [place] (1.000-1.030) Urine Protein (Negative) Urine Glucose (UA) (Negative) Urine Ketones (Negative) Urine Blood (Negative) Urine Nitrite (Negative) Urine Bilirubin (Negative) Urine Urobilinogen (Negative) Ur Leukocyte Esterase (Negative) Urine RBC (0-4) /hpf Urine WBC (0-5) /hpf Ur Epithelial Cells (0-5) /lpf Ur Renal Epithelial Cell (0-5) /lpf Calcium Oxalate Crystal (None Prsent) Urine Bacteria (Negative) COVID-19 Eval Order SARS-CoV-2 (PCR) (Negative) Influenza Type A (PCR) (Neg) Influenza Type B (PCR) (Neg) RSV (RT-PCR) (Neg) 07/31/20 07/31/20 07/31/20 Range/Units Unknown Unknown Unknown WBC (4.8-10.8) K/uL RBC (4.2-5.4) M/uL Hgb (12.0-16.0) g/dL Hct (37-47) % MCV (80-100) fL MCH (25-34) pg MCHC (32-36) g/dL RDW Std Deviation (36.4-46.3) fL RDW Coeff of Constantine (11.5-14.5) % Plt Count (130-400) K/uL MPV (7.4-10.4) fL Immature Gran % (Auto) % Neut % (Auto) % Lymph % (Auto) % [place] % (Auto) % Eos % (Auto) % Baso % (Auto) % Neut # (Auto) (1.4-6.5) K/uL Lymph # (Auto) (1.2-3.4) K/uL [place] # (Auto) (0.11-0.59) K/uL Eos # (Auto) (0-0.5) K/uL Baso # (Auto) (0-0.2) K/uL Immature Gran # (Auto) (0.00-0.02) K/uL Absolute Nucleated RBC Nucleated RBC % (auto) Neutrophils % (Manual) Band Neutrophils % Lymphocytes % (Manual) Prolymphocyte % Reactive Lymphs % (Man) Monocytes % (Manual) Eosinophils % (Manual) Basophils % (Manual) Metamyelocytes % (Man) Myelocytes % (Man) Promyelocytes % (Man) Blast Cells % (Manual) Plasma Cell % (Manual) Other Cells % Nucleated RBC % Neutrophils # (Manual) Band Neutrophils # Total Absolute Neuts Lymphocytes # (Manual) Prolymphocyte # Reactive Lymphs # Total Abs Lymphocytes Monocytes # (Manual) Eosinophils # (Manual) Basophils # (Manual) Metamyelocytes # (Man) Myelocytes # (Manual) Promyelocytes # (Man) Blast Cells # (Man) Plasma Cell # (Manual) Other Cells # Nucleated RBCs # (Man) Hypersegmented Neuts Hyposegmented Neuts Hypogranular Neuts Large Granular Lymphs # Lrg Granular Lymphs Hairy Cells Smudge Cells Toxic Granulation Toxic Vacuolation Dohle Bodies Jyoti Rods Platelet Estimate Hypogranular Platelets Clumped Platelets Giant Platelets Platelet Satelliting RBC Morphology Polychromasia Hypochromasia Poikilocytosis Basophilic Stippling Anisocytosis Microcytosis Macrocytosis Spherocytes Pappenheimer Bodies Sickle Cells Target Cells Tear Drop Cells Ovalocytes Stomatocytes [place] Bodies Echinocytes Acanthocytes (Spur) Rouleaux RBC Agglutinates Schistocytes RBC Morph Comment Sezary Cell PT 11.7 (9.0-12.0) Seconds INR 1.2 H (0.9-1.1) Sodium (136-145) mmol/L Potassium (3.5-5.1) mmol/L Chloride (98-107) mmol/L Carbon Dioxide (21-32) mmol/L Anion Gap (3-11) BUN (7-18) mg/dl Creatinine (0.6-1.2) mg/dl Est Cr Clr Drug Dosing ml/min Est GFR ( Amer) Est GFR (Non-Af Amer) BUN/Creatinine Ratio (10-20) Glucose (70-99) mg/dl Calcium (8.5-10.1) mg/dl Phosphorus (2.5-4.9) mg/dl Magnesium (1.8-2.4) mg/dl Total Bilirubin (0.2-1) mg/dl AST (15-37) U/L ALT (12-78) U/L Alkaline Phosphatase (45-117) U/L Troponin I (0-0.045) ng/ml Total Protein (6.4-8.2) gm/dl Albumin (3.4-5.0) gm/dl Globulin (2.5-4.0) gm/dl Albumin/Globulin Ratio (0.9-2) TSH (0.300-4.500) uIu/ml Free T4 (0.8-1.6) ng/dl Specimen Hemolysis Urine Color Urine Appearance (Clear) Urine pH (4.5-7.5) Ur Specific [place] (1.000-1.030) Urine Protein (Negative) Urine Glucose (UA) (Negative) Urine Ketones (Negative) Urine Blood (Negative) Urine Nitrite (Negative) Urine Bilirubin (Negative) Urine Urobilinogen (Negative) Ur Leukocyte Esterase (Negative) Urine RBC (0-4) /hpf Urine WBC (0-5) /hpf Ur Epithelial Cells (0-5) /lpf Ur Renal Epithelial Cell (0-5) /lpf Calcium Oxalate Crystal (None Prsent) Urine Bacteria (Negative) COVID-19 Eval Order [facility]Rsv at [facility] SARS-CoV-2 (PCR) NEGATIVE (Negative) Influenza Type A (PCR) Negative (Neg) Influenza Type B (PCR) Negative (Neg) RSV (RT-PCR) Negative (Neg) 07/31/20 Range/Units Unknown WBC (4.8-10.8) K/uL RBC (4.2-5.4) M/uL Hgb (12.0-16.0) g/dL Hct (37-47) % MCV (80-100) fL MCH (25-34) pg MCHC (32-36) g/dL RDW Std Deviation (36.4-46.3) fL RDW Coeff of Constantine (11.5-14.5) % Plt Count (130-400) K/uL MPV (7.4-10.4) fL Immature Gran % (Auto) % Neut % (Auto) % Lymph % (Auto) % [place] % (Auto) % Eos % (Auto) % Baso % (Auto) % Neut # (Auto) (1.4-6.5) K/uL Lymph # (Auto) (1.2-3.4) K/uL [place] # (Auto) (0.11-0.59) K/uL Eos # (Auto) (0-0.5) K/uL Baso # (Auto) (0-0.2) K/uL Immature Gran # (Auto) (0.00-0.02) K/uL Absolute Nucleated RBC Nucleated RBC % (auto) Neutrophils % (Manual) Band Neutrophils % Lymphocytes % (Manual) Prolymphocyte % Reactive Lymphs % (Man) Monocytes % (Manual) Eosinophils % (Manual) Basophils % (Manual) Metamyelocytes % (Man) Myelocytes % (Man) Promyelocytes % (Man) Blast Cells % (Manual) Plasma Cell % (Manual) Other Cells % Nucleated RBC % Neutrophils # (Manual) Band Neutrophils # Total Absolute Neuts Lymphocytes # (Manual) Prolymphocyte # Reactive Lymphs # Total Abs Lymphocytes Monocytes # (Manual) Eosinophils # (Manual) Basophils # (Manual) Metamyelocytes # (Man) Myelocytes # (Manual) Promyelocytes # (Man) Blast Cells # (Man) Plasma Cell # (Manual) Other Cells # Nucleated RBCs # (Man) Hypersegmented Neuts Hyposegmented Neuts Hypogranular Neuts Large Granular Lymphs # Lrg Granular Lymphs Hairy Cells Smudge Cells Toxic Granulation Toxic Vacuolation Dohle Bodies Jyoti Rods Platelet Estimate Hypogranular Platelets Clumped Platelets Giant Platelets Platelet Satelliting RBC Morphology Polychromasia Hypochromasia Poikilocytosis Basophilic Stippling Anisocytosis Microcytosis Macrocytosis Spherocytes Pappenheimer Bodies Sickle Cells Target Cells Tear Drop Cells Ovalocytes Stomatocytes [place] Bodies Echinocytes Acanthocytes (Spur) Rouleaux RBC Agglutinates Schistocytes RBC Morph Comment Sezary Cell PT (9.0-12.0) Seconds INR (0.9-1.1) Sodium (136-145) mmol/L Potassium (3.5-5.1) mmol/L Chloride (98-107) mmol/L Carbon Dioxide (21-32) mmol/L Anion Gap (3-11) BUN (7-18) mg/dl Creatinine (0.6-1.2) mg/dl Est Cr Clr Drug Dosing ml/min Est GFR ( Amer) Est GFR (Non-Af Amer) BUN/Creatinine Ratio (10-20) Glucose (70-99) mg/dl Calcium (8.5-10.1) mg/dl Phosphorus (2.5-4.9) mg/dl Magnesium (1.8-2.4) mg/dl Total Bilirubin (0.2-1) mg/dl AST (15-37) U/L ALT (12-78) U/L Alkaline Phosphatase (45-117) U/L Troponin I (0-0.045) ng/ml Total Protein (6.4-8.2) gm/dl Albumin (3.4-5.0) gm/dl Globulin (2.5-4.0) gm/dl Albumin/Globulin Ratio (0.9-2) TSH (0.300-4.500) uIu/ml Free T4 (0.8-1.6) ng/dl Specimen Hemolysis Urine Color Dark Yellow Urine Appearance Clear (Clear) Urine pH 5.5 (4.5-7.5) Ur Specific [place] 1.022 (1.000-1.030) Urine Protein Trace H (Negative) Urine Glucose (UA) Negative (Negative) Urine Ketones 1+ H (Negative) Urine Blood Negative (Negative) Urine Nitrite Negative (Negative) Urine Bilirubin Negative (Negative) Urine Urobilinogen Negative (Negative) Ur Leukocyte Esterase 2+ H (Negative) Urine RBC 0-4 (0-4) /hpf Urine WBC 5-10 H (0-5) /hpf Ur Epithelial Cells 0-5 (0-5) /lpf Ur Renal Epithelial Cell 0-5 (0-5) /lpf Calcium Oxalate Crystal Present A (None Prsent) Urine Bacteria Negative (Negative) COVID-19 Eval Order SARS-CoV-2 (PCR) (Negative) Influenza Type A (PCR) (Neg) Influenza Type B (PCR) (Neg) RSV (RT-PCR) (Neg) Administered Medications Magnesium Sulfate/Dextrose (Magnesium Sulfate / D5w) 1 gm in 100 mls @ 50 mls/hr IV ONE STA Stop: 07/31/20 23:51 Last Admin: 07/31/20 22:28 Dose: 50 mls/hr Documented by: [id number] Discontinued Medications Calcitonin [place] (Calcitonin [place] 400 Units/2 Ml) 200 units SQ NOW STA Stop: 07/31/20 21:09 Last Admin: 07/31/20 22:37 Dose: Not Given Documented by: [id number] Furosemide (Furosemide 40 Mg/4 Ml Vial) 20 mg IV NOW STA Stop: 07/31/20 21:12 Last Admin: 07/31/20 21:36 Dose: Not Given Documented by: [id number] Sodium Chloride (Nss 1000ml) 500 mls @ 999 mls/hr IV .Q31M ONE Stop: 07/31/20 21:38 Last Infusion: 07/31/20 22:32 Dose: 0 mls/hr Documented by: [id number] Admin: 07/31/20 21:31 Dose: 999 mls/hr Documented by: [id number] Potassium Chloride (K Edu / Wtr) 10 meq in 100 mls @ 100 mls/hr IV ONE ONE Stop: 07/31/20 22:10 Last Infusion: 07/31/20 22:31 Dose: 0 mls/hr Documented by: [id number] Admin: 07/31/20 21:29 Dose: 100 mls/hr Documented by: [id number] Calcitonin [place] 200 units/ (Syringe) 1 mls @ 0 mls/sec SQ ONE ONE Stop: 07/31/20 22:01 Last Admin: 07/31/20 22:28 Dose: 2 mls/sec Documented by: [id number] Metoprolol Succinate (Metoprolol Succ 50mg Ext Rel Tab) 100 mg PO NOW STA Stop: 07/31/20 22:23 Last Admin: 07/31/20 22:47 Dose: 100 mg Documented by: [id number] Metoprolol Succinate (Metoprolol Succ 50mg Ext Rel Tab) 100 mg PO NOW STA Stop: 07/31/20 22:31 Last Admin: 07/31/20 23:19 Dose: 100 mg Documented by: [id number] Imaging Data Radiologist's Impression: Chest X-Ray 07/31/20 20:23 XR chest 1V portable CLINICAL HISTORY: weakness COMPARISON STUDY: 05/04/2018 FINDINGS: The heart is enlarged. There are subsegmental atelectatic changes at the left lung base. There is no failure. There is no evidence of acute parenchymal consolidation. There is evidence of multiple prior vertebroplasties.[There is blunting of the right lateral costophrenic angle. A small effusion cannot be excluded IMPRESSION: 1. No significant change from the prior study 2. Cardiomegaly 2. Equivocal small right pleural effusion ACT 112: Negative or not required by law. Electronically signed by: Yuniel Wang M.D. 07/31/2020 8:51 PM Discharge Plan Visit Data Chief Complaint: Illness Stated Complaint: ILLNESS ED Provider: Ashok Mohr Discharge Problem: Hypercalcemia, Fatigue Forms Stand Alone Forms: My [facility] Prescriptions Prescriptions: No Action lisinopril 20 mg Tablet 20 mg PO QAM RF: 0 metoprolol succinate 100 mg Tablet Extended Release 24 Hr 100 mg PO HS RF: 0 sertraline 50 mg Tablet 50 mg PO QAM RF: 0 PreserVision AREDS [id number] Tablet 1 tab PO BID RF: 0 aspirin 81 mg Tablet,Delayed Release (Dr/Ec) 81 mg PO QPM RF: 0 carbidopa-levodopa 25-100 mg Tablet 1.5 tab PO UD RF: 0 multivitamin Tablet 1 tab PO QDL RF: 0 tramadol 50 mg Tablet 50 mg PO Q6 PRN (Reason: Pain) RF: 0 levothyroxine 100 mcg Capsule 100 mcg PO QAM RF: 0 vitamin B complex Capsule 1 cap PO QAM RF: 0 entacapone 200 mg tablet 200 mg PO BID RF: 0 furosemide 20 mg tablet 20 mg PO [id number] RF: 0 Discharge Problem: Fatigue Qualifiers: Fatigue type: unspecified Qualified Code(s): R53.83 - Other fatigue
[2020-08-01] MEDS: METOPROLOL SUCC 50MG EXT REL TAB PO STA (00:27)
[2020-08-01] MEDS ORDERED: traMADol HCL 50 MG TABLET PO PRN (01:08)
[2020-08-01] MEDS ORDERED: amLODIPine BESYLATE 5 MG TAB PO STA (01:08)
[2020-08-01] MEDS ORDERED: PROMETHAZINE HCL 6.25 MG in SODIUM CHLORIDE 0.9% 50 ML IV PRN (01:08)
[2020-08-01] MEDS ORDERED: ACETAMINOPHEN 325 MG TAB PO PRN ×2 (01:08→05:31)
[2020-08-01] MEDS ORDERED: CARBIDOPA/LEVODOPA 25/100MG TAB PO SCH (01:08)
[2020-08-01 02:13] LABS: BUN Creatinine Ratio 18.9 (10-20); Calcium 13.2 mg/dl (8.5-10.1); Creatinine Clr Calc Pharmacy 29.4 ml/min; Est GFR (African American) 52.1; Est GFR (Non-African American) 44.9; Potassium 3.8 mmol/L (3.5-5.1)
[2020-08-01] MEDS ORDERED: lisinopril 20 MG TAB PO STA (02:29)
[2020-08-01] MEDS: CARBIDOPA/LEVODOPA 25/100MG TAB PO SCH ×5 (03:07→21:28)
[2020-08-01] MEDS: LACTATED RINGER'S 1,000 ML IV SCH ×2 (03:08→10:45)
[2020-08-01] MEDS: HEPARIN SOD 5,000 UNIT/0.5 ML VIAL SQ SCH ×3 (05:54→21:30)
[2020-08-01 06:01] LABS: Basophils # (auto) 0.06 K/uL (0-0.2); Basophils % (auto) 0.5 %; Eosinophils # (auto) 0.06 K/uL (0-0.5); Eosinophils % (auto) 0.5 %; Hematocrit (blood only) 37.9 % (37-47); Hemoglobin 12.9 g/dL (12.0-16.0); Immature Granulocytes # (auto) 0.03 K/uL (0.00-0.02); Immature Granulocytes % (auto) 0.3 %; Lymphocytes # (auto) 1.72 K/uL (1.2-3.4); Lymphocytes % (auto) 14.7 %; Mean Corpuscular Hemoglobin 31.5 pg (25-34); Mean Corpuscular Volume 92.4 fL (80-100); Mean Platelet Volume 10.9 fL (7.4-10.4); Monocytes # (auto) 2.52 K/uL (0.11-0.59); Monocytes % (auto) 21.6 %; Neutrophils # (auto) 7.28 K/uL (1.4-6.5); Neutrophils % (auto) 62.4 %; Platelet Count 131 K/uL (130-400); RDW Standard Deviation 47.4 fL (36.4-46.3); White Blood Count 11.67 K/uL (4.8-10.8)
[2020-08-01] MEDS: LEVOTHYROXINE SODIUM 100 MCG TABLET PO SCH (06:11)
[2020-08-01 06:12] LABS: Estimated Average Glucose 111 mg/dl; Hemoglobin A1C 5.5 % (4.5-5.6)
[2020-08-01 06:52] LABS: BUN Creatinine Ratio 19.9 (10-20); Calcium 12.1 mg/dl (8.5-10.1); Creatinine Clr Calc Pharmacy 29.8 ml/min; Est GFR (African American) 52.6; Est GFR (Non-African American) 45.4; Potassium 3.6 mmol/L (3.5-5.1)
--- NOTE | 2020-08-01 07:08 | CT Scan Report ---
CT head/brain wo con CLINICAL HISTORY: 85 years-old Female with slurred speech. Acute strokelike symptoms TECHNIQUE: Multiple axial CT images of the head were obtained without contrast. A dose lowering tech nique was utilized adhering to the principles of ALARA. CT DOSE: 614.27 mGy.cm COMPARISON: 12/19/2017 FINDINGS: No acute intracranial hemorrhage, midline shift, intracranial mass, hydrocephalus, territorial ischem ia or abnormal extra-axial collection. Age-related involutional changes. White matter hypodensities s uggestive of chronic microvascular ischemic disease. Tiny hypoattenuating foci of the caudate nuclei and left lentiform nucleus have progressed from comparison and are suggestive of chronic lacunar infa rcts. No acute calvarial fracture. Prior bilateral lens repair. The paranasal sinuses, mastoid air cells, and middle ear cavities are clear. IMPRESSION: 1. No acute intracranial hemorrhage, midline shift or acute territorial infarct. 2. Tiny subcentimeter hypoechoic foci of the right caudate and left lentiform nuclei are suggestive o f chronic lacunar infarcts however are new/progressed from the 2018 comparison. ACT 112: Negative or not required by law. The above report was generated using voice recognition software. It may contain grammatical, syntax o r spelling errors. Electronically signed by: Dany Parsons M.D. 08/01/2020 7:06 AM
[2020-08-01] MEDS ORDERED: INFLUENZA VACCINE HIGH DOSE 65+ 0.7 ML SYR IM ONE (08:00)
[2020-08-01] MEDS ORDERED: PNEUMOCOCCAL Polysaccharide Vaccine 25mcg/0.5mL vial/Syr IM ONE (08:00)
--- NOTE | 2020-08-01 09:02 | CT Scan Report ---
ABDOMEN AND PELVIS CT WITHOUT CONTRAST CT DOSE: 303.06 mGy.cm HISTORY: Acute generalized abdominal pain with distention abd distension TECHNIQUE: Multiaxial CT images of the abdomen and pelvis were performed without contrast. A dose lo wering technique was utilized adhering to the principles of ALARA. COMPARISON STUDY: Chest radiograph of same day, lumbar spine radiographs 11/29/2017, 11/25/2017. FINDINGS: Cardiomegaly. Coronary artery calcifications. Pleural thickening with right greater than le ft pleural calcifications. Bibasilar atelectasis/scarring. Limited exam without the use of IV contras t and also secondary to upper extremity positioning with respiratory motion artifact. Unenhanced spleen, moderately atrophic pancreas, adrenal glands and liver appear unremarkable. Cholec ystectomy. Kidneys are unremarkable. No urolith or hydronephrosis. Partially decompressed urinary arsen dder. Retroflexed uterus. Calcified plaque of the aorta. No adenopathy. No bowel obstruction or bowel wall thickening. Mild fecal retention. High-density material is noted w ithin the noninflamed appendix. Tiny fat filled periumbilical hernia. Mild generalized mesenteric and body wall edema. Demineralized appearance the bones with degenerative changes of the spine, pelvis a nd hips. Numerous compression deformities of the thoracolumbar spine include chronic compression defo rmities with kyphoplasty at T11 and T12. Unchanged minimal superior endplate compression deformity at L1. Progressively worsened 50% superior endplate compression deformity of the L2 vertebral body whic h demonstrates 4 mm retropulsion. Progressively worsened superior endplate compression deformity at L 3 without retropulsion. Chronic L4 and L5 compression deformities with kyphoplasty. IMPRESSION: 1. No acute intra-abdominal or intrapelvic abnormality. 2. No bowel obstruction or pneumoperitoneum. 3. Mild fecal retention. 4. 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 5. Progressive superior endplate compression deformities of the L2 and L3 vertebral bodies have worse lamar from the 2018 comparison. 6. Additional findings as above. ACT 112: Negative or not required by law. The above report was generated using voice recognition software. It may contain grammatical, syntax o r spelling errors. Electronically signed by: Dany Parsons M.D. 08/01/2020 9:01 AM
[2020-08-01] MEDS ORDERED: CALCITONIN SALMON 400 UNITS/2 ML SQ SCH (10:00)
[2020-08-01] MEDS ORDERED: ZOLEDRONIC ACID 4 MG in 0.9 % SODIUM CHLORIDE 100 ML IV ONE (10:00)
[2020-08-01] MEDS: CEROVITE ADV FORMULA TAB PO SCH ×2 (10:39→21:29)
[2020-08-01] MEDS: ENTACAPONE 200 MG TAB PO SCH ×2 (10:39→21:27)
[2020-08-01] MEDS: VITAMIN B COMPLEX TAB PO SCH (10:39)
[2020-08-01] MEDS: SERTRALINE HCL 50 MG TABLET PO SCH (10:41)
[2020-08-01] MEDS: MULTIVITAMIN TAB PO SCH (10:42)
[2020-08-01] MEDS: CALCITONIN SALMON 200 UNITS in SYRINGE 0 ML SQ SCH ×2 (10:43→21:30)
--- NOTE | 2020-08-01 11:29 | Consultation Report ---
DATE OF CONSULTATION: 08/01/2020 REASON FOR CONSULT: Hypercalcemia. HISTORY OF PRESENT ILLNESS: The patient is an 85-year-old female who is a very poor historian and she was sleeping, so history was constructed mainly from the chart. The patient was sent over to the hospital because of outpatient labs showing very high serum calcium of 13.5. She does have history of chronic hypercalcemia for the last 1 year or so with a suppressed PTH. Since admission, she was given IV fluid 1 dose of calcitonin and with that serum calcium this morning was 12.1. She also had some degree of acute renal failure with a creatinine of 1.3 and is already down quite a bit. Her oral intake has been poor. Medication list at home is not 100% accurate and we do not know for sure whether she was taking any calcium supplement Tums. The patient has been declining overall for the last 2 weeks with increasing fatigue, sleepiness, poor mobility as well as poor appetite. There was no mention of any shortness of breath or fever. PAST MEDICAL AND SURGICAL HISTORY: Includes vertebroplasty, cystoscopy, thyroidectomy, cholecystectomy, chronic diastolic heart failure, paroxysmal atrial fibrillation, not on anticoagulation, hypertension, hyperlipidemia, history of TIA, Parkinson's disease, restrictive lung disease, hypothyroidism, chronic hypercalcemia, osteoporosis, chronic compression fracture, anxiety, mood disorder, history of non-ST elevation myocardial infarction, chronic hypercalcemia. As for the hypercalcemia, this is chronic; however, the serum calcium is not always high. It tends to fluctuate quite a bit. ALLERGIES: List was reviewed and is as per H and P. HOME MEDICATIONS: List was reviewed in detail and is as per H and P, although we do not know for sure about the accuracy and what she was doing. FAMILY HISTORY: Negative for renal disease or dialysis. SOCIAL HISTORY: No smoking, no alcohol. She lives with her . REVIEW OF SYSTEMS: Unable to obtain as the patient did not open her eyes despite significant distraction. PHYSICAL EXAMINATION: GENERAL: Elderly white female who appears to be weak and frail. VITAL SIGNS: Blood pressure is 149/66, pulse rate 68, temperature 36.5, 93% on room air. HEENT: Mucous membrane is moist. NECK: Supple. No jugular venous distention. No respiratory distress. CHEST: Bilateral clear to auscultation, although poor inspiratory effort. CARDIOVASCULAR: S1 and S2, regular. Soft systolic murmur heard. ABDOMEN: Soft, nontender. EXTREMITIES: Shows no edema. LABORATORY TESTS: Reviewed in detail. On admission, serum calcium was 13.5, this morning it is down to 12.1, BUN 22, creatinine 1.12. Sodium 141, potassium 3.6. PTH 7.8, magnesium was 1.8. ASSESSMENT AND PLAN: An 85-year-old female with acute on chronic hypercalcemia associated with mild acute renal failure. Hypercalcemia. She had a serum calcium of 13.5, which is very high and are usually associated with malignancy, but there is no guarantee. Necessary hypercalcemia workup has been sent and are pending at this time. I would make sure we have urine for Bence Echavarria serum immunofixation, PTH related peptide at the very minimum. We also need to aggressively manage her hypercalcemia. At this point, I would change her fluid to half normal saline at [address] a Brown catheter for more strict input output charting. Given her age and diastolic congestive heart failure history, I would also give her Lasix to make sure we maintain a very brisk diuresis. We need a urine output of around 150 mL per hour. Also give calcitonin subQ 200 mcg total of 4 doses. Zometa 4 mg IV x1. Check BMP twice daily.
[2020-08-01] MEDS: SODIUM CHLORIDE 0.45 % 1,000 ML IV SCH ×2 (11:55→18:30)
[2020-08-01] MEDS: FUROSEMIDE 20 MG in SYRINGE 0 ML IV SCH ×3 (11:55→21:29)
--- NOTE | 2020-08-01 12:52 | Hospitalist Progress Note ---
Date of Service August 01, 2020 Assessment & Plan (1) Hypercalcemia: Present on admission after sending to the ER for abnormal lab for calcium Calcium on admission above 13.5 Nephrology on board Will need outpatient work up for malignancy Received calcitonin subQ, Zometa 4 mg IV Continue IVF and lasix added Continue monitor closely for fluid overload Continue monitor Calcium HTN Possible related to to hospital setting Continue Lisinopril Will add hydralazine IV prn Continue monitor BP Hypothyroidism TSH 11 On Levothyroxine 100mcg Will check to see if levothyroxine was recently discharge Weakness CT head showed no acute intracranial abnormality No focal neuro deficit PT/OT eval Fall precaution Hyperglycemia Hba1c 5.5 Continue monitor BS Chronic diastolic heart failure Will need to monitor closely for volume overload since on IVF Continue Lasix IV 20mg IV daily PAF/atrial flutter Rate control with Metoprolol Not on anticoagulation secondary to risk factors as per documentation Continue monitor closely Hyperlipidemia Continue statin DVT prophylaxis. Heparin subcu Full code Patient daughter requesting updates from providers. Anabel Virginia Rodriguez, contact #[phone]. Admission and Anticipated Discharge Date Admission Date: July 31, 2020 Subjective Pt was seen and examined for follow up of hypercalcemia Lying in bed with no distress Pt said that she feels fine Denies any chest pain, palpitation, dizziness and SOB Review of Systems Review of Systems: All systems reviewed & are unremarkable except as noted in Subjective Physical Exam Physical Exam: General- No acute distress Head- atraumatic Eyes- PERRL, EOMI, ENT- oropharynx clear Neck- supple, no JVD Lungs- clear to auscultation Heart- regular rhythm; +murmur Abdomen- normal bowel sounds, soft, nontender Extremities- no calf tenderness Neuro- alert, oriented x 3; PERRL, EOMI; no facial palsy; no dysarthria Skin- warm & dry Results & Data Results & Data ([facility]) Vital Signs (Past 12 Hours) Vital Signs Temp Pulse Pulse Resp BP BP Pulse Ox 08/01/20 11:49 36.8 C 65 16 186/70 H 185/76 H 08/01/20 08:11 36.5 C 68 16 149/66 H 93 08/01/20 03:00 36.5 C 72 20 193/72 H 92 08/01/20 02:27 82 08/01/20 01:18 37 C 85 18 194/82 H 97
--- NOTE | 2020-08-01 14:52 | Electrocardiogram Report ---
Test Reason : Blood Pressure : / mmHG Vent. Rate : 068 BPM Atrial Rate : 068 BPM P-R Int : 194 ms QRS Dur : 150 ms QT Int : 408 ms P-R-T Axes : 057 063 -31 degrees QTc Int : 433 ms Normal sinus rhythm Possible Left atrial enlargement Non-specific intra-ventricular conduction block Abnormal ECG When compared with ECG of 06-MAY-2018 06:52, Non-specific intra-ventricular conduction block is now Present Confirmed by Jorge Alberto Og ([id number]) on 08/01/2020 2:52:07 PM Referred By: Sina Rehman Confirmed By:Jorge Alberto Og
[2020-08-01] MEDS ORDERED: amLODIPine BESYLATE 5 MG TAB PO SCH (21:00)
[2020-08-01] MEDS: ASPIRIN 81 MG ECTAB PO SCH (21:27)
[2020-08-01] MEDS: METOPROLOL SUCC 50MG EXT REL TAB PO SCH (21:29)
[2020-08-02] MEDS: SODIUM CHLORIDE 0.45 % 1,000 ML IV SCH ×4 (01:12→23:21)
[2020-08-02] MEDS: LEVOTHYROXINE SODIUM 100 MCG TABLET PO SCH (05:31)
[2020-08-02] MEDS: HEPARIN SOD 5,000 UNIT/0.5 ML VIAL SQ SCH ×3 (05:31→22:09)
[2020-08-02] MEDS: FUROSEMIDE 20 MG in SYRINGE 0 ML IV SCH ×3 (05:32→22:12)
[2020-08-02 07:01] LABS: Hematocrit (blood only) 35.9 % (37-47); Mean Corpuscular Hemoglobin 30.4 pg (25-34); Mean Corpuscular Hgb Conc 33.4 g/dL (32-36); Mean Corpuscular Volume 90.9 fL (80-100); Mean Platelet Volume 10.7 fL (7.4-10.4); Platelet Count 134 K/uL (130-400); RDW Standard Deviation 46.7 fL (36.4-46.3); Red Blood Count 3.95 M/uL (4.2-5.4); White Blood Count 11.77 K/uL (4.8-10.8)
[2020-08-02 07:36] LABS: BUN Creatinine Ratio 19.8 (10-20); Calcium 10.7 mg/dl (8.5-10.1); Creatinine Clr Calc Pharmacy 29.6 ml/min; Est GFR (African American) 51.5; Est GFR (Non-African American) 44.4; Potassium 2.9 mmol/L (3.5-5.1)
[2020-08-02] MEDS: VITAMIN B COMPLEX TAB PO SCH (08:18)
[2020-08-02] MEDS: SERTRALINE HCL 50 MG TABLET PO SCH (08:18)
[2020-08-02] MEDS: CEROVITE ADV FORMULA TAB PO SCH ×2 (08:18→21:03)
[2020-08-02] MEDS: lisinopril 20 MG TAB PO SCH (08:18)
[2020-08-02] MEDS: ENTACAPONE 200 MG TAB PO SCH ×2 (08:18→21:01)
[2020-08-02] MEDS: CARBIDOPA/LEVODOPA 25/100MG TAB PO SCH ×4 (08:19→21:02)
[2020-08-02] MEDS: CALCITONIN SALMON 200 UNITS in SYRINGE 0 ML SQ SCH ×2 (08:24→20:58)
[2020-08-02] MEDS ORDERED: POTASSIUM CHLORIDE CRTAB 20 MEQ TABCR PO STA (08:55)
[2020-08-02] MEDS: POTASSIUM CHLORIDE / WTR 10 MEQ/100 ML PLCT IV SCH ×2 (10:08→10:09)
[2020-08-02] MEDS: MULTIVITAMIN TAB PO SCH (10:09)
--- NOTE | 2020-08-02 11:44 | Nephrology Progress Note ---
Date of Service August 02, 2020 Assessment & Plan (1) Hypercalcemia: -Calcium is improved to 10.7, urine output is also good. -Work-up for hypercalcemia is awaited -Continue with total of 4 doses of calcitonin, -Continue with fluid rehydration. Admission and Anticipated Discharge Date Admission Date: July 31, 2020 Subjective Sitting out in chair comfortable, Pt said that she feels fine, wants to go home Denies any chest pain, palpitation, dizziness and SOB Review of Systems Review of Systems: All systems reviewed & are unremarkable except as noted in HPI & below Physical Exam Physical Exam: GENERAL: Weak frail lady, comfortable not in any distress HEENT: Mucous membrane is moist. NECK: Supple. No jugular venous distention. No respiratory distress. CHEST: Bilateral clear to auscultation, although poor inspiratory effort. CARDIOVASCULAR: S1 and S2, regular. Soft systolic murmur heard. ABDOMEN: Soft, nontender. EXTREMITIES: Shows no edema. Results & Data ([facility]) Vital Signs (Past 12 Hours) Vital Signs Temp Pulse Pulse Resp BP Pulse Ox 08/02/20 07:30 36.7 C 66 18 159/50 H 97 08/02/20 04:00 36.6 C 59 L 20 151/70 H 95 08/02/20 01:06 60 Laboratory Results 08/02/20 06:39 08/02/20 06:39
--- NOTE | 2020-08-02 20:02 | Hospitalist Progress Note ---
Date of Service August 02, 2020 Assessment & Plan (1) Hypercalcemia: Present on admission after sending to the ER for abnormal lab for calcium Calcium on admission above 13.5, improves to 10.7 today Nephrology on board Will need outpatient work up for malignancy Continue calcitonin subQ, Zometa 4 mg IV Continue IVF and lasix added Continue monitor closely for fluid overload Continue monitor Calcium HTN Possible related to to hospital setting Continue Lisinopril Will add hydralazine IV prn Continue monitor BP Hypothyroidism TSH 11 On Levothyroxine 100mcg Will check to see if levothyroxine was recently discharge Weakness CT head showed no acute intracranial abnormality No focal neuro deficit PT/OT eval Fall precaution Hyperglycemia Hba1c 5.5 Continue monitor BS Chronic diastolic heart failure Will need to monitor closely for volume overload since on IVF Continue Lasix IV 20mg IV daily PAF/atrial flutter Rate control with Metoprolol Not on anticoagulation secondary to risk factors as per documentation Continue monitor closely Hyperlipidemia Continue statin DVT prophylaxis. Heparin subcu Full code Patient daughter requesting updates from providers. Ms. Virginia Rodriguez, contact #[phone]. Admission and Anticipated Discharge Date Admission Date: July 31, 2020 Subjective Pt was seen and examined for follow up of hypercalcemia Sitting in bed with no distress eating lunch Pt said that she feels fine Denies any chest pain, palpitation, dizziness and SOB Review of Systems Review of Systems: All systems reviewed & are unremarkable except as noted in Subjective Physical Exam Physical Exam: General- No acute distress Head- atraumatic Eyes- PERRL, EOMI, ENT- oropharynx clear Neck- supple, no JVD Lungs- clear to auscultation Heart- regular rhythm; +murmur Abdomen- normal bowel sounds, soft, nontender Extremities- no calf tenderness Neuro- alert, oriented x 3; PERRL, EOMI; no facial palsy; no dysarthria Skin- warm & dry Results & Data Results & Data ([facility]) Vital Signs (Past 12 Hours) Vital Signs Temp Pulse Pulse Resp BP BP Pulse Ox 08/02/20 18:55 36.4 C L 73 18 169/76 H 92 08/02/20 17:00 158/62 H 08/02/20 15:53 67 08/02/20 14:55 36.7 C 69 18 173/70 H 97 08/02/20 12:58 36.6 C 69 18 195/69 H 97 08/02/20 12:52 170/75 H
[2020-08-02] MEDS: ASPIRIN 81 MG ECTAB PO SCH (21:02)
[2020-08-02] MEDS: METOPROLOL SUCC 50MG EXT REL TAB PO SCH (21:04)
[2020-08-03] MEDS ORDERED: Nursing to Pharmacy Communication SCH (03:45)
[2020-08-03] MEDS: SODIUM CHLORIDE 0.45 % 1,000 ML IV SCH (05:57)
[2020-08-03] MEDS: LEVOTHYROXINE SODIUM 100 MCG TABLET PO SCH (06:01)
[2020-08-03] MEDS: FUROSEMIDE 20 MG in SYRINGE 0 ML IV SCH ×3 (06:02→21:26)
[2020-08-03] MEDS: HEPARIN SOD 5,000 UNIT/0.5 ML VIAL SQ SCH ×3 (06:02→21:26)
[2020-08-03 07:49] LABS: Basophils # (auto) 0.06 K/uL (0-0.2); Basophils % (auto) 0.4 %; Eosinophils # (auto) 0.14 K/uL (0-0.5); Hematocrit (blood only) 36.4 % (37-47); Hemoglobin 12.6 g/dL (12.0-16.0); Immature Granulocytes # (auto) 0.04 K/uL (0.00-0.02); Immature Granulocytes % (auto) 0.3 %; Lymphocytes # (auto) 2.93 K/uL (1.2-3.4); Mean Corpuscular Hemoglobin 31.4 pg (25-34); Mean Corpuscular Hgb Conc 34.6 g/dL (32-36); Mean Corpuscular Volume 90.8 fL (80-100); Mean Platelet Volume 10.6 fL (7.4-10.4); Monocytes # (auto) 2.64 K/uL (0.11-0.59); Monocytes % (auto) 19.8 %; Neutrophils # (auto) 7.53 K/uL (1.4-6.5); Neutrophils % (auto) 56.5 %; Platelet Count 135 K/uL (130-400); RDW Standard Deviation 46.4 fL (36.4-46.3); Red Blood Count 4.01 M/uL (4.2-5.4); White Blood Count 13.34 K/uL (4.8-10.8)
[2020-08-03] MEDS: SERTRALINE HCL 50 MG TABLET PO SCH (08:05)
[2020-08-03] MEDS: VITAMIN B COMPLEX TAB PO SCH (08:06)
[2020-08-03] MEDS: ENTACAPONE 200 MG TAB PO SCH ×2 (08:06→21:25)
[2020-08-03] MEDS: lisinopril 20 MG TAB PO SCH (08:06)
[2020-08-03] MEDS: CARBIDOPA/LEVODOPA 25/100MG TAB PO SCH ×4 (08:06→21:25)
[2020-08-03] MEDS: CEROVITE ADV FORMULA TAB PO SCH ×2 (08:06→21:25)
[2020-08-03 08:22] LABS: BUN Creatinine Ratio 19.4 (10-20); Calcium 10.4 mg/dl (8.5-10.1); Creatinine Clr Calc Pharmacy 35.5 ml/min; Est GFR (African American) 64.2; Est GFR (Non-African American) 55.4; Potassium 2.9 mmol/L (3.5-5.1)
[2020-08-03] MEDS ORDERED: POTASSIUM CHLORIDE CRTAB 20 MEQ TABCR PO STA (09:24)
[2020-08-03] MEDS: POTASSIUM CHLORIDE / WTR 10 MEQ/100 ML PLCT IV SCH ×2 (10:22→12:41)
[2020-08-03] MEDS: MULTIVITAMIN TAB PO SCH (10:23)
--- NOTE | 2020-08-03 11:32 | Nephrology Progress Note ---
Date of Service August 03, 2020 Assessment & Plan (1) Hypercalcemia: -Calcium is improved , urine output is also good. -Work-up for hypercalcemia is awaited -We will be finishing 4 doses of calcitonin, -Can DC IV fluids encourage oral/. -Replace potassium Nephrology will sign off Admission and Anticipated Discharge Date Admission Date: July 31, 2020 Subjective Pt was seen and examined for follow up of hypercalcemia Sitting in bed with no distress Comfortable, no shortness of breath. Review of Systems Review of Systems: All systems reviewed & are unremarkable except as noted in HPI & below Physical Exam Physical Exam: GENERAL: Weak frail lady, comfortable not in any distress HEENT: Mucous membrane is moist. NECK: Supple. No jugular venous distention. No respiratory distress. CHEST: Bilateral clear to auscultation, although poor inspiratory effort. CARDIOVASCULAR: S1 and S2, regular. Soft systolic murmur heard. ABDOMEN: Soft, nontender. EXTREMITIES: Shows no edema. Results & Data ([facility]) Vital Signs (Past 12 Hours) Vital Signs Temp Pulse Resp BP BP Pulse Ox 08/03/20 11:06 36.4 C L 77 18 172/74 H 93 08/03/20 07:16 37.0 C 66 18 191/69 H 98 08/03/20 04:00 36.6 C 64 18 177/73 H 93 Laboratory Results 08/03/20 07:27 08/03/20 07:27
--- NOTE | 2020-08-03 19:57 | Hospitalist Progress Note ---
Date of Service August 03, 2020 Assessment & Plan (1) Hypercalcemia: Present on admission after sending to the ER for abnormal lab for calcium Calcium on admission above 13.5, improves to 10.3 today Nephrology on board Will need outpatient work up for malignancy Received 4 doses of calcitonin subQ Received Zometa 4 mg IV IVF discontinue Continue monitor closely for fluid overload Continue monitor Calcium HTN Possible related to to hospital setting Continue Lisinopril Will add hydralazine IV prn Continue monitor BP Hypokalemia Possible related to diuretic Potassium 2.9 today K replaced Continue monitor BMP Hypothyroidism TSH 11 On Levothyroxine 100mcg Will check to see if levothyroxine was recently discharge Weakness CT head showed no acute intracranial abnormality No focal neuro deficit PT/OT eval Fall precaution Hyperglycemia Hba1c 5.5 Continue monitor BS Chronic diastolic heart failure Will need to monitor closely for volume overload since on IVF Continue Lasix IV 20mg IV daily PAF/atrial flutter Rate control with Metoprolol Not on anticoagulation secondary to risk factors as per documentation Continue monitor closely Hyperlipidemia Continue statin DVT prophylaxis. Heparin subcu Full code Patient daughter requesting updates from providers. Ms. Virginia Rodriguez, contact #[phone]. Admission and Anticipated Discharge Date Admission Date: July 31, 2020 Subjective Pt was seen and examined for follow up of hypercalcemia Lying in bed with no distress Pt said that she feels fine She is very anxious to go home today Denies any chest pain, palpitation, dizziness and SOB Review of Systems Review of Systems: All systems reviewed & are unremarkable except as noted in Subjective Physical Exam Physical Exam: General- No acute distress Head- atraumatic Eyes- PERRL, EOMI, ENT- oropharynx clear Neck- supple, no JVD Lungs- clear to auscultation Heart- regular rhythm; +murmur Abdomen- normal bowel sounds, soft, nontender Extremities- no calf tenderness Neuro- alert, oriented x 3; PERRL, EOMI; no facial palsy; no dysarthria Skin- warm & dry Results & Data Results & Data ([facility]) Vital Signs (Past 12 Hours) Vital Signs Temp Pulse Pulse Resp BP BP Pulse Ox 08/03/20 18:37 36.5 C 67 18 126/67 100 08/03/20 16:00 63 08/03/20 15:17 36.4 C L 72 18 151/69 H 97 08/03/20 11:06 36.4 C L 77 18 172/74 H 93 08/03/20 08:00 62
[2020-08-03] MEDS: ASPIRIN 81 MG ECTAB PO SCH (21:25)
[2020-08-03] MEDS: METOPROLOL SUCC 50MG EXT REL TAB PO SCH (21:27)
[2020-08-04] MEDS: LEVOTHYROXINE SODIUM 100 MCG TABLET PO SCH (06:14)
[2020-08-04] MEDS: HEPARIN SOD 5,000 UNIT/0.5 ML VIAL SQ SCH ×2 (06:15→12:15)
[2020-08-04] MEDS: ENTACAPONE 200 MG TAB PO SCH (08:02)
[2020-08-04] MEDS: CEROVITE ADV FORMULA TAB PO SCH (08:03)
[2020-08-04] MEDS: CARBIDOPA/LEVODOPA 25/100MG TAB PO SCH ×2 (08:03→12:15)
[2020-08-04] MEDS: lisinopril 20 MG TAB PO SCH (08:03)
[2020-08-04] MEDS: VITAMIN B COMPLEX TAB PO SCH (08:03)
[2020-08-04] MEDS: SERTRALINE HCL 50 MG TABLET PO SCH (08:03)
[2020-08-04 08:28] LABS: BUN Creatinine Ratio 23.3 (10-20); Calcium 10.1 mg/dl (8.5-10.1); Creatinine Clr Calc Pharmacy 39.7 ml/min; Est GFR (African American) 73.4; Est GFR (Non-African American) 63.4; Potassium 3.1 mmol/L (3.5-5.1)
[2020-08-04] MEDS ORDERED: FUROSEMIDE 20 MG TAB PO SCH (09:00)
[2020-08-04] MEDS ORDERED: hydrALAZINE HCL 20 MG/ML VIAL IV PRN (10:28)
[2020-08-04] MEDS ORDERED: POTASSIUM CHLORIDE CRTAB 20 MEQ TABCR PO STA ×2 (10:29→13:43)
[2020-08-04] MEDS ORDERED: POTASSIUM ACETATE/NSS 10 MEQ/105 ML BAG IV ONE (10:29)
[2020-08-04 10:43] LABS: Hematocrit (blood only) 38.2 % (37-47); Hemoglobin 12.7 g/dL (12.0-16.0); Mean Corpuscular Hemoglobin 30.5 pg (25-34); Mean Corpuscular Hgb Conc 33.2 g/dL (32-36); Mean Corpuscular Volume 91.8 fL (80-100); Mean Platelet Volume 11.2 fL (7.4-10.4); Platelet Count 133 K/uL (130-400); RDW Standard Deviation 47.1 fL (36.4-46.3); Red Blood Count 4.16 M/uL (4.2-5.4); White Blood Count 11.58 K/uL (4.8-10.8)
[2020-08-04] MEDS ORDERED: POTASSIUM CHLORIDE / WTR 10 MEQ/100 ML PLCT IV ONE (11:14)
--- NOTE | 2020-08-04 12:04 | Discharge Summary ---
Date of Service August 04, 2020 Admission HPI Per Admitting Provider History obtained from patient, family, and records. Patient is a fair historian. Medical history significant for chronic diastolic heart failure (EF 60%, TTE 2019), PAF/atrial flutter not on anticoagulation secondary to risk factors, hypertension, hyperlipidemia, history TIA, Parkinson's disease, restrictive lung disease as per records, hypothyroidism, hypercalcemia, osteoporosis/chronic compression fractures status post surgery, anxiety/mood disorder as per records. Last confinement April 2018 for non-ST elevation MD. Patient noted to be hypercalcemic on outpatient blood work since April 2019. Initial serum calcium was 11.6. Low intact PTH. Outpatient serum calcium levels on outpatient blood work above 10 since April 2020. Patient seen at PCPs office 2 weeks ago for fatigue symptoms. Patient napping all day as per family. Patient daughter sure about patient not overdosing on home tablets as she prepares patient's home meds. Patient daughter not sure about tramadol tablet consumption per patient's usual back pain as per patient. Patient's decreased mobility also impacting on patient 's active lifestyle as per daughter. Family expressed worries about patient sleepiness, abdominal bloating, functional decline on outpatient cardiology visit today. Patient sent to the ER for evaluation. Serum calcium noted to be 13.5. NSS, calcitonin administered at the ER. Patient denies chest pain, S OB, headache. Transient headache symptoms from 2 days ago. Patient denies slurred speech. Abdominal distention nothing unusual as per patient. Patient denies more than usual calcium plus D home supplement intake. Daily glass of milk as per patient. 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 Admission Exam Per Admitting Provider GENERAL: Slightly uncomfortable, frail, no respiratory distress SKIN: Normal color, warm HEENT: Skelp palpebral conjunctivae, no ptosis, midfacial erythema, dry buccal mucosa NECK : Supple, no tenderness CHEST : Decreased breath sounds, no tenderness HEART : RRR, no obvious murmurs ABDOMEN: Some distention, nontender EXTREMITIES : No LE swelling/tenderness, no other conspicuous deformities noted NEUROLOGIC : Coherent, no facial asymmetry, mild hearing impairment, no other gross focality Principal Diagnosis Hypercalcemia: Hypertension Hypokalemia Hypothyroidism Weakness Fall precaution Hyperglycemia Chronic diastolic heart failure PAF/atrial flutter Hyperlipidemia Discharge Exam General- No acute distress Head- atraumatic Eyes- PERRL, EOMI, ENT- oropharynx clear Neck- supple, no JVD Lungs- clear to auscultation Heart- regular rhythm; +murmur Abdomen- normal bowel sounds, soft, nontender Extremities- no calf tenderness Neuro- alert, oriented x 3; PERRL, EOMI; no facial palsy; no dysarthria Skin- warm & dry Discharge Data Allergies Allergy/AdvReac Type Severity Reaction Status Date / Time adhesive Allergy Mild RASH, Verified 07/31/20 21:23 BLISTERS WITH TAPE erythromycin base Allergy Mild HIVES Verified 07/31/20 21:23 glycopyrrolate Allergy Mild HIVES Verified 07/31/20 21:23 Penicillins Allergy Mild hives Verified 07/31/20 21:23 hydrocodone AdvReac Intermediate SICK TO Verified 07/31/20 21:23 STOMACH acetaminophen [From Vicodin] AdvReac Unknown Gastrointestinal Verified 07/31/20 21:23 Upset Consultations 07/31/20 21:34 ED Decision to Admit Stat 08/01/20 01:08 Consult Nephrology Routine Ordered Studies 07/31/20 22:54 CT abd pelvis wo con Urgent CT head/brain wo con Urgent CT head/brain wo con CLINICAL HISTORY: 85 years-old Female with slurred speech. Acute strokelike symptoms TECHNIQUE: Multiple axial CT images of the head were obtained without contrast. A dose lowering technique was utilized adhering to the principles of ALARA. CT DOSE: 614.27 mGy.cm COMPARISON: 12/19/2017 FINDINGS: No acute intracranial hemorrhage, midline shift, intracranial mass, hydrocephal us, territorial ischemia or abnormal extra-axial collection. Age-related involutional changes. White matter hypodensities suggestive of chronic microvascular ischemic disease. Tiny hypoattenuating foci of the caudate nuclei and left lentiform nucleus have progressed from comparison and are suggestive of chronic lacunar infarcts. No acute calvarial fracture. Prior bilateral lens repair. The paranasal sinuses, mastoid air cells, and middle ear cavities are clear. IMPRESSION: 1. No acute intracranial hemorrhage, midline shift or acute territorial infarct. 2. Tiny subcentimeter hypoechoic foci of the right caudate and left lentiform nuclei are suggestive of chronic lacunar infarcts however are new/progressed from the 2018 comparison. ACT 112: Negative or not required by law. The above report was generated using voice recognition software. It may contain grammatical, syntax or spelling errors. Electronically signed by: Dany Parsons M.D. 08/01/2020 7:06 AM Dictated: 08/01/20701Transcribed: 08/01/[address] WITHOUT CONTRAST CT DOSE: 303.06 mGy.cm HISTORY: Acute generalized abdominal pain with distention abd distension TECHNIQUE: Multiaxial CT images of the abdomen and pelvis were performed without contrast. A dose lowering technique was utilized adhering to the principles of ALARA. COMPARISON STUDY: Chest radiograph of same day, lumbar spine radiographs 11/29/2017, 11/25/2017. FINDINGS: Cardiomegaly. Coronary artery calcifications. Pleural thickening with right greater than left pleural calcifications. Bibasilar atelectasis/scarring. Limited exam without the use of IV contrast and also secondary to upper extremity positioning with respiratory motion artifact. Unenhanced spleen, moderately atrophic pancreas, adrenal glands and liver appear unremarkable. Cholecystectomy. Kidneys are unremarkable. No urolith or hydronephrosis. Partially decompressed urinary bladder. Retroflexed uterus. Calcified plaque of the aorta. No adenopathy. No bowel obstruction or bowel wall thickening. Mild fecal retention. High- density material is noted within the noninflamed appendix. Tiny fat filled periumbilical hernia. Mild generalized mesenteric and body wall edema. Demineralized appearance the bones with degenerative changes of the spine, pelvis and hips. Numerous compression deformities of the thoracolumbar spine include chronic compression deformities with kyphoplasty at T11 and T12. Unchanged minimal superior endplate compression deformity at L1. Progressively worsened 50% superior endplate compression deformity of the L2 vertebral body which demonstrates 4 mm retropulsion. Progressively worsened superior endplate compression deformity at L3 without retropulsion. Chronic L4 and L5 compression deformities with kyphoplasty. IMPRESSION: 1. No acute intra-abdominal or intrapelvic abnormality. 2. No bowel obstruction or pneumoperitoneum. 3. Mild fecal retention. 4. 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 5. Progressive superior endplate compression deformities of the L2 and L3 vertebral bodies have worsened from the 2018 comparison. 6. Additional findings as above. ACT 112: Negative or not required by law. The above report was generated using voice recognition software. It may contain grammatical, syntax or spelling errors. Electronically signed by: Dany Parsons M.D. 08/01/2020 9:01 AM Dictated: 08/01/20847Transcribed: 08/01/20847 XR chest 1V portable CLINICAL HISTORY: weakness COMPARISON STUDY: 05/04/2018 FINDINGS: The heart is enlarged. There are subsegmental atelectatic changes at the left lung base. There is no failure. There is no evidence of acute parenchymal consolidation. There is evidence of multiple prior vertebroplasties.[There is blunting of the right lateral costophrenic angle. A small effusion cannot be excluded IMPRESSION: 1. No significant change from the prior study 2. Cardiomegaly 2. Equivocal small right pleural effusion ACT 112: Negative or not required by law. Electronically signed by: Yuniel Wang M.D. 07/31/2020 8:51 PM Dictated: 07/31/202049Transcribed: 07/31/202049 Hospital Course (1) Hypercalcemia: Present on admission after sending to the ER for abnormal lab for calcium Calcium on admission above 13.5, improves to 10.3 today Nephrology on board Will need outpatient work up for malignancy Received 4 doses of calcitonin subQ Received Zometa 4 mg IV IVF discontinue Continue monitor closely for fluid overload Continue monitor Calcium HTN Possible related to to hospital setting Continue Lisinopril Will add hydralazine IV prn Continue monitor BP Hypokalemia Possible related to diuretic Potassium 2.9 today K replaced Continue monitor BMP Hypothyroidism TSH 11 On Levothyroxine 100mcg Will check to see if levothyroxine was recently discharge Weakness CT head showed no acute intracranial abnormality No focal neuro deficit PT/OT eval Fall precaution Hyperglycemia Hba1c 5.5 Continue monitor BS Chronic diastolic heart failure Will need to monitor closely for volume overload since on IVF Continue Lasix IV 20mg IV daily PAF/atrial flutter Rate control with Metoprolol Not on anticoagulation secondary to risk factors as per documentation Continue monitor closely Hyperlipidemia Continue statin DVT prophylaxis. Heparin subcu Full code Patient daughter requesting updates from providers. Ms. Virginia Rodriguez, contact #[phone]. Total Time Total Time Spent Total Time Spent (In Minutes): 35 minutes Total Time Includes: Examination of the Patient, Discharge Planning, Medication Reconciliation, Communication With Other Providers and Other Discharge Plan Discharge Items Patient Disposition: Home - Home Health Services Reason For Visit: HTN URG, HYPERCALCEMIA Discharge Diagnosis: Hypercalcemia: Hypertension Hypokalemia Hypothyroidism Weakness Fall precaution Hyperglycemia Chronic diastolic heart failure PAF/atrial flutter Hyperlipidemia Activity: Resume your previous activity Non-emergency contact: Primary Care Provider Call non-emergency contact if: you have any medication questions Follow-up/Referrals: Laura Bird MD [Primary Care Provider] - (Date & Time 08/11/2020 12:40 PM Provider Laura Bird MD Department Internal Medicine [facility] ) Diet: Heart Healthy Addtl Attending Provider Instructions: Follow up with your primary care provider Dr. Bird on 08/11/2020 @ 12:40 PM Check BMP in 1 week to monitor your electrolytes (If calcium continues to increase, you will need further outpatient work up) Check TSH in 3-4 weeks to monitor your thyroid function Increase potassium supplement in your diet Avoid any additional over the counter calcium supplement Pending Studies at Discharge: No Stand-Alone Forms: My [facility] Hello Music, Smoking Cessation Medications and DC Order Prescriptions: New potassium chloride 20 mEq tablet extended release 20 meq PO 5XWK Qty: 30 RF: 0 Continued lisinopril 20 mg Tablet 20 mg PO QAM RF: 0 metoprolol succinate 100 mg Tablet Extended Release 24 Hr 100 mg PO HS RF: 0 sertraline 50 mg Tablet 50 mg PO QAM RF: 0 PreserVision AREDS [id number] Tablet 1 tab PO BID RF: 0 aspirin 81 mg Tablet,Delayed Release (Dr/Ec) 81 mg PO QPM RF: 0 carbidopa-levodopa 25-100 mg Tablet 1.5 tab PO UD RF: 0 multivitamin Tablet 1 tab PO QDL RF: 0 tramadol 50 mg Tablet 50 mg PO Q6 PRN (Reason: Pain) RF: 0 levothyroxine 100 mcg Capsule 100 mcg PO QAM RF: 0 vitamin B complex Capsule 1 cap PO QAM RF: 0 entacapone 200 mg tablet 200 mg PO BID RF: 0 furosemide 20 mg tablet 20 mg PO [id number] RF: 0 Discharge Orders: Discharge Order (Routine); Ordered 08/04/20 Ordered By: Mouna Ferrell Admission Data Admit Date/Time: 07/31/20 22:57 Attending Provider: Mouna Ferrell Admit Provider: Srikanth Wise Primary Care Provider: Laura Bird Other Providers: Srikanth Wise ; Bailee Schulz ; Donavon Booth Elissa R. ; Tessy Go ; Fernanda Taylor ; Vinicius Whiteside ; Andrea Jensen [facility] Other Interventions: Discharge Summary Assessment (RN) Last Done: 08/04/20 15:22
[2020-08-04] MEDS: MULTIVITAMIN TAB PO SCH (12:15)
== END 2020-08-04 17:10 | disposition home health service (06) | DRG 641 ==
LOC: ED 18:35 → 2W 22:57

== ENCOUNTER 2021-11-04 08:13 | Inpatient (IN) ==
[2021-11-04 08:31] LABS: Hematocrit (blood only) 45.8 % (34.1-44.9); Hemoglobin 14.3 g/dl (12.0-16.0); Mean Corpuscular Hemoglobin 28.3 pg (25.0-34.0); Mean Corpuscular Hgb Conc 31.2 g/dL (32.0-36.0); Mean Corpuscular Volume 90.7 fL (80.0-100.0); Mean Platelet Volume 10.4 fL (9.4-12.3); Platelet Count 155 K/uL (130-400); RDW Coefficient of Variation 13.9 % (11.5-14.5); RDW Standard Deviation 46.4 fL (36.4-46.3); Red Blood Count 5.05 M/uL (3.93-5.22); White Blood Count 13.19 K/ul (4.8-10.8)
--- NOTE | 2021-11-04 08:32 | Emergency Department Note ---
History of Present Illness General Chief complaint: Hip Pain Stated complaint: FALL, L HIP & LEG PAIN Time Seen by Provider: 11/04/21 08:17 History of Present Illness Provider complaint: Fall left hip pain Onset (ago): hour(s) 3 Location: lower extremity and left Radiation: non-radiation Severity: moderate Pain Consistency: + constant Maximum Pain Intensity: 6 Current Pain Intensity: 6 Quality: + aching Relieved By: + immobilization Exacerbated By: + movement Associated symptoms: no chest pain, no cough, no fever/chills, no headaches, no nausea/vomiting, no seizure or no shortness of breath 86-year-old female presents emergency department status post fall and left hip pain. Patient reports she fell around 5:30 in the morning try to close a window. She reports pain in her left hip and left lower extremity. Patient is on Eliquis. Patient denies hitting her head. No bleeding. Home Medications Medication Instructions Recorded Confirmed Type aspirin 81 mg tablet,delayed 81 mg PO AMPM 05/04/18 06/29/21 History release levothyroxine 100 mcg capsule 100 mcg PO DAILYBB 05/04/18 06/29/21 History tramadol 50 mg tablet 50 mg PO Q6 PRN Pain 05/04/18 06/29/21 History metoprolol succinate 100 mg 100 mg PO HS 09/07/18 06/29/21 History tablet,extended release 24 hr vitamins A,C,A-hpuy-virmni 2,148 1 tab PO BID 09/07/18 06/29/21 History mcg-113 mg-45 mg-17.4 mg tablet (PreserVision AREDS) vitamin B complex 1 cap PO QAM 12/28/18 06/29/21 History furosemide 20 mg tablet 20 mg PO 5XWK PRN Fluid Retention 07/31/20 06/29/21 History buspirone 10 mg tablet 10 mg PO TID 04/02/21 06/29/21 History lisinopril 20 mg tablet 20 mg PO DAILY #14 tabs 04/02/21 06/29/21 Rx mirtazapine 15 mg tablet 7.5 mg PO HS 04/02/21 06/29/21 History potassium chloride 20 mEq 20 meq PO 5XWK PRN days taking 04/02/21 06/29/21 H istory tablet,extended release lasix Allergies Allergy/AdvReac Type Severity Reaction Status Date / Time adhesive Allergy Mild RASH, Verified 06/29/21 01:54 BLISTERS WITH TAPE erythromycin base Allergy Mild HIVES Verified 06/29/21 01:54 glycopyrrolate Allergy Mild HIVES Verified 06/29/21 01:54 Penicillins Allergy Mild hives Verified 06/29/21 01:54 hydrocodone AdvReac Intermediate SICK TO Verified 06/29/21 01:54 STOMACH acetaminophen [From Vicodin] AdvReac Unknown Gastrointestinal Verified 06/29/21 01:54 Upset Past Med/Surg History Medical History (Updated 11/04/21 @ 09:55 by Mainor Oquendo) Anxiety Atrial fibrillation PLAVIX STOPPED BY DENISE Compression fracture of lumbar vertebra Depression Fatigue Gastroparesis GERD (gastroesophageal reflux disease) Hiatal hernia History of colon polyps History of gastric ulcer Hypercalcemia Hypertension Hypothyroidism Macular degeneration of right eye Non-STEMI (non-ST elevated myocardial infarction) 04/2018--follows with Dr. Rehman Osteoarthritis Osteoporosis Parkinson disease Spinal stenosis Transient ischemic attack (TIA) "MANY MANY YRS AGO"F/U DR RIDER?[facility] Surgical History History of cholecystectomy History of colonoscopy History of dilatation and curettage History of esophagogastroduodenoscopy (EGD) History of lumbar surgery NO METAL History of phacoemulsification of cataract of both eyes with intraocular lens implantation History of thyroidectomy benign growth History of tooth extraction Family History Sister Family hx of colon cancer Other No family history of adverse response to anesthesia Social History Smoking Status: Never smoker Second Hand Exposure: No; Hx Alcohol Use: No Hx Substance Use: No Preferred Language: Haitian Communication Ability: Effective Coding Coordinator Required: No Beliefs That Will Affect Care: None marital status: Current Living Situation: Spouse Current Living Situation Comment: Lives with How many Children do You have: 2 Feels Safe at Home: Yes Assistive Devices: Cane, Glasses and Walker Review of Systems A total of 10 systems reviewed and were otherwise negative Physical Exam Vital Signs Vital Signs - 24 hr 11/04/21 08:18 11/04/21 09:43 11/04/21 09:44 Temperature 36.9 C Temperature Source Oral Pulse Rate 67 67 Pulse Rate [Apical] 71 Respiratory Rate 16 20 20 Respiratory Effort / Characteristics Non-Labored Non-Labored Spontaneous Respiratory Depth Normal Normal Respiratory Pattern Regular Blood Pressure 190/71 H Blood Pressure [Left Arm] 190/71 H Blood Pressure Mean 110 Blood Pressure Mean [Left Arm] 110 Pulse Oximetry 94 91 92 Oxygen Delivery Method Room Air Room Air Room Air Sepsis Recent Fever Within 48 Hours No Sepsis New/Unexplained Change in Mental Status No Sepsis Action Taken by Nursing No Action Required Physical Exam HENT: Exam performed. -Head: Normocephalic and atraumatic. -Right Ear: External ear normal. No mastoid tenderness. -Left Ear: External ear normal. No mastoid tenderness. -Mouth/Throat: The oropharynx is clear and moist. No trismus in the jaw. No dental abscesses or uvula swelling. No oropharyngeal exudate or tonsillar abscesses. EYES: Conjunctivae and EOM are normal. Pupils are equal, round, and reactive to light. Right eye exhibits no discharge. Left eye exhibits no discharge. No scleral icterus. NECK: Normal range of motion. Neck supple. No JVD present. No spinous process tenderness present. No carotid bruit present. No rigidity. No tracheal deviation and normal range of motion present. No Brudzinski's sign and no Kernig's sign noted. CV: Normal rate, regular rhythm, normal heart sounds and intact distal pulses. There is no peripheral edema. Palpable radial pulses bue. PULM/CHEST: Effort normal and breath sounds normal. No respiratory distress. No stridor. She has no wheezes. She has no rales. -Chest Wall: She exhibits no tenderness. ABD: The abdomen is soft. Bowel sounds are normal. She has no distension. No mass is present. There is no tenderness. There is no rebound, no guarding, no Beckman's sign and no tenderness at McBurney's point. Rovsig negative MUSC/SKEL: Pain on palpation of the left hip. LYMPH: No cervical lymphadenopathy Course Course 08: The patient was evaluated in room B7. A complete history and physical exam was performed Cardiac monitoring: An order was placed for continuous cardiac monitoring. The monitor shows a rate of 70 with sinus rhythm 0953: Vital signs stable. Imaging shows left hip fracture. Patient states she has seen [facility] Dr. Wagner in the past for her back problems. Patient will be admitted to the [facility] team with [facility] [place] orthopedics on consult. Administered Medications Morphine Sulfate (Morphine Sulfate 4 Mg/Ml 1 Ml Carp\\Vial) 4 mg IV Q1H PRN PRN Reason: Severe Pain (Rating 7,8,9,10) Stop: 11/18/21 09:36 Last Admin: 11/04/21 09:44 Dose: 4 mg Documented By: HS Discontinued Medications Ioversol (Optiray 320 100ml) 95 ml IV ONCE ONE Stop: 11/04/21 09:07 Last Admin: 11/04/21 09:06 Dose: 95 ml Documented By: KSF Morphine Sulfate (Morphine Sulfate 2 Mg/Ml Carp) 2 mg IV NOW STA Stop: 11/04/21 08:36 Last Admin: 11/04/21 08:46 Dose: 2 mg Documented By: AW Medical Decision Making Laboratory Data Result diagrams: 11/04/21 08:23 11/04/21 08:23 Lab Results 11/04/21 11/04/21 11/04/21 Range/Units 08:23 08:23 08:23 WBC 13.19 H (4.8-10.8) K/ul RBC 5.05 (3.93-5.22) M/uL Hgb 14.3 (12.0-16.0) g/dl Hct 45.8 H (34.1-44.9) % MCV 90.7 (80.0-100.0) fL MCH 28.3 (25.0-34.0) pg MCHC 31.2 L (32.0-36.0) g/dL RDW Std Deviation 46.4 H (36.4-46.3) fL RDW Coeff of Constantine 13.9 (11.5-14.5) % Plt Count 155 (130-400) K/uL MPV 10.4 (9.4-12.3) fL Neutrophils % (Manual) 71 % Lymphocytes % (Manual) 11 % Monocytes % (Manual) 18 % Basophils % (Manual) 1 % Neutrophils # (Manual) 9.36 H (1.4-6.5) K/uL Total Absolute Neuts 9.36 H (1.4-6.5) K/uL Lymphocytes # (Manual) 1.45 (1.2-3.4) K/uL Total Abs Lymphocytes 1.45 (1.2-3.4) K/uL Monocytes # (Manual) 2.37 H (0.24-0.82) K/uL Basophils # (Manual) 0.13 (0-0.2) K/uL PT 11.7 (9.0-12.0) Seconds INR 1.1 (0.9-1.1) APTT 33.3 H (21.0-31.0) Seconds PTT Ratio 1.2 Sodium 139 (136-145) mmol/L Potassium 4.2 (3.5-5.1) mmol/L Chloride 105 (98-107) mmol/L Carbon Dioxide 31 (21-32) mmol/L Anion Gap 3 (3-11) BUN 16 (6-23) mg/dl Creatinine 0.73 (0.6-1.2) mg/dl Est Cr Clr Drug Dosing 45.4 ml/min Est GFR ( Amer) 87.7 ml/min Est GFR (Non-Af Amer) 75.6 ml/min BUN/Creatinine Ratio 21.9 H (10-20) Glucose 123 H (70-99(Fasting)) mg/dl Calcium 8.2 L (8.5-10.1) mg/dl Total Creatine Kinase 20 L (26-192) U/L Imaging Data Radiologist's Impression: Abdomen/Pelvis CT 11/04/21 08:24 CT abd pelvis IV con only CLINICAL HISTORY: fall on eliquis TECHNIQUE: Helical axial images of the abdomen and pelvis were obtained and displayed. Automated dose lowering techniques and/or adjustment according to patient size were utilized for this exam. This exam was performed with intravenous contrast. COMPARISON: Comparison is made to CT abdomen pelvis 11/04/2021 FINDINGS: Lower chest: Cardiomegaly is seen. There is bibasilar atelectasis. Pleural plaques are noted. Liver: Unremarkable. No focal lesions are seen. Gallbladder and biliary tree: Patient is status post cholecystectomy. Physiologic prominence of the biliary ducts is noted. Pancreas: Unremarkable, no focal lesions. Spleen: The spleen measures 11.9 cm in craniocaudal dimension. Adrenals: Unremarkable. Kidneys and ureters: Unremarkable. Bladder: Brown catheter is seen. Reproductive organs: Unremarkable. Bowel: Unremarkable appearance of the bowel. The appendix is normal. Lymph nodes Retroperitoneal: Unremarkable. Mesenteric: Unremarkable. Pelvic: Unremarkable. Peritoneum: Normal. Vessels: Atherosclerotic calcifications are seen. Abdominal wall: Unremarkable. Bones: Acute fracture of the left femur is partially visualized. A sclerotic focus measuring 11 mm is noted in the right iliac body. A bony fragment in the anterior aspect of the right acetabulum is unchanged from prior exam. Multilevel compression deformities are seen. Cemented arthroplasties are noted at multiple levels. IMPRESSION: No intra-abdominal abnormalities such as laceration or hematoma are noted. There is a left femoral fracture which is evaluated by dedicated radiograph. No additional acute fractures are seen. Multilevel degenerative changes are seen in the spine with cement arthroplasties. ACT 112: Negative or not required by law. Electronically signed by: Cortez Pérez M.D. 11/04/2021 9:[address] 11/04/21 08:24 CT SCAN OF THE CERVICAL SPINE CLINICAL HISTORY: Fall. COMPARISON STUDY: CT of the cervical spine dated 09/13/2017. TECHNIQUE: CT scan of the cervical spine is performed from the skull base to the upper thoracic spine. Images are reviewed in the axial, sagittal, and coronal planes. IV contrast was not administered for this examination. A dose lowering technique was utilized adhering to the principles of ALARA. FINDINGS: Skeletal structures: The skeletal structures are osteopenic. There is no evidence of acute fracture or subluxation involving the cervical spine. A mild chronic compression deformity of C7 is unchanged. Vertebral body height is otherwise maintained throughout the cervical spine. Alignment is preserved. The odontoid process and lateral masses are intact. The atlantoaxial articulation is preserved noting productive degenerative change. The spinous processes appear intact. A bone island is incidentally noted in the body of C7. There is moderate multilevel cervical spondylosis. Uncovertebral and facet arthropathy contribute to neural foraminal narrowing at several levels. Intervertebral discs: There is severe disc space narrowing at C5-C6. Mild to moderate disc space narrowing is noted at the remaining cervical levels. Central canal: Posterior disc osteophyte complexes at C4-C5, C5-C6, and C6-C7 l ikely contribute to multilevel acquired compromise of the central canal. Soft tissues: The prevertebral and paraspinous soft tissues are within normal limits. Calcification are noted in the left parotid gland. There is atherosclerotic calcification of the carotid bulbs. The thyroid gland is atrophic versus surgically absent. Calvarium: The visualized calvarium at the skull base appears intact. Brain parenchyma: Partially visualized brain parenchyma at the skull base is within normal limits. Sinuses and mastoids: Trace mucosal thickening is noted in the maxillary antra. The mastoid air cells are well pneumatized. Lung apices: Clear as visualized. IMPRESSION: 1. There is no evidence of acute fracture or subluxation involving the cervical spine. 2. Osteopenia and spondylotic change as above. ACT 112: Negative or not required by law. Electronically signed by: Fox Rodríguez M.D. 11/04/2021 9:24 AM Chest X-Ray 11/04/21 08:24 XR chest 1V not portable CLINICAL HISTORY: fall on eliquis TECHNIQUE: Single frontal radiograph of the chest was obtained. Comparison: Comparison is made to chest radiograph 06/29/2021 FINDINGS: No lines and tubes are seen. Cardiomegaly is noted. Reticular interstitial opacities are seen. Pleural calcifications are unchanged. No evidence of pleural effusion or pneumothorax. IMPRESSION: No acute chest disease. ACT 112: Negative or not required by law. Electronically signed by: Cortez Pérez M.D. 11/04/2021 9:37 AM Femur X-Ray 11/04/21 08:24 XR femur LT 2V routine CLINICAL HISTORY: fall on eliquis TECHNIQUE: 2 radiographic views of the left femur were obtained. Comparison: Comparison is made to pelvis radiograph 11/04/2021 FINDINGS: There is a comminuted fracture of the left femur, intratrochanteric. Multilevel degenerative changes are seen in the spine. Vascular calcifications are noted. Soft tissue swelling is noted. IMPRESSION: Intertrochanteric fracture of the left femoral neck is seen with mild apex lateral angulation. No additional fractures are seen. ACT 112: Negative or not required by law. Electronically signed by: Cortez Pérez M.D. 11/04/2021 9:[address] 11/04/21 08:24 CT head/brain wo con CLINICAL HISTORY: Status post fall. Patient on eliquis COMPARISON STUDY: 07/31/2020 CT DOSE: 1272.53 mGy.cm TECHNIQUE: Standard CT of the Brain was performed without IV contrast. A dose lowering technique was utilized adhering to the principles of ALARA. FINDINGS: Extraaxial space: There is no evidence for subdural hematoma. There are no extra-axial fluid collections. Ventricles and cisterns: The ventricles are mildly dilated bilaterally. There is no evidence for midline shift or mass effect. Parenchyma: There is no subarachnoid or intraparenchymal hemorrhage. There is no evidence for an acute infarct or cerebral edema. There is mild cerebral cortical atrophy and decreased attenuation in the periventricular white matter representing remote small vessel disease. There are no gross mass lesions. Osseous structures: There is no evidence for an acute fracture. The visualized paranasal sinuses are clear. The mastoid air cells are clear bilaterally. Soft tissues: There is no evidence for focal soft tissue swelling. IMPRESSION: 1. No acute intracerebral pathology. 2. Mild cerebral cortical atrophy and remote small vessel disease. ACT 112: Negative or not required by law. Electronically signed by: Connor Claudio M.D. 11/04/2021 9:11 AM Pelvis X-Ray 11/04/21 08:24 XR pelvis 1-2V routine CLINICAL HISTORY: Status post fall with left hip pain. COMPARISON STUDY: No previous studies for comparison. TECHNIQUE: [A single AP radiograph was obtained. FINDINGS: There is a comminuted, intratrochanteric fracture of the left femoral neck. The remaining bones are intact. There is mild narrowing hip joint spaces bilaterally. The femoral heads maintain their anatomic positions within the acetabula. The SI joints are intact bilaterally. The remaining visualized bones of the pelvis are intact. The patient is status post vertebroplasty of the lower lumbar spine. No focal soft tissue abnormalities identified. IMPRESSION: 1. Minimally displaced, comminuted intertrochanteric fracture of the left femoral neck. ACT 112: Negative or not required by law. Electronically signed by: Connor Claudio M.D. 11/04/2021 9:34 AM ECG Data Indication: + other (fall) Rate (beats per minute): 67 Rhythm: + normal sinus ECG Intervals/blocks: + Right Bundle branch block, + Normal [place] and + Normal QT-c ECG ST segments: + Normal ST segments Comparison ECG Date: from (June 2021) Change: no significant change MDM Narrative Vital signs stable. Imaging shows left hip fracture. Patient states she has seen [facility] Dr[facility] Wagner in the past for her back problems. Patient will be admitted to the [facility] team with [facility] [place] [facility]oped[facility] on consult. Impression & Plan Femoral neck fracture Discharge Plan Visit Data Chief Complaint: Hip Pain Stated Complaint: FALL, L HIP & LEG PAIN ED Provider: Mainor Oquendo Discharge Problem: Femoral neck fracture Patient Disposition: Admitted As Inpatient Forms Stand Alone Forms: My [facility] Prescriptions Prescriptions: No Action metoprolol succinate 100 mg Tablet Extended Release 24 Hr 100 mg PO HS PreserVision AREDS [id number] Tablet 1 tab PO BID aspirin 81 mg Tablet,Delayed Release (Dr/Ec) 81 mg PO AMPM tramadol 50 mg Tablet 50 mg PO Q6 PRN (Reason: Pain) levothyroxine 100 mcg Capsule 100 mcg PO DAILYBB vitamin B complex Capsule 1 cap PO QAM furosemide 20 mg tablet 20 mg PO 5XWK PRN (Reason: Fluid Retention) Rx Instructions: don not take on and mirtazapine 15 mg tablet 7.5 mg PO HS buspirone 10 mg tablet 10 mg PO TID potassium chloride 20 mEq tablet extended release 20 meq PO 5XWK PRN (Reason: days taking lasix) Rx Instructions: taking on the day with the Lasix lisinopril 20 mg tablet 20 mg PO DAILY Qty: 14 1RF Referrals Referrals: Laura Bird MD [Primary Care Provider] -
[2021-11-04] MEDS ORDERED: MoRPHine SULFATE 2 MG/ML CARP IV STA (08:35)
[2021-11-04 08:44] LABS: INR 1.1 (0.9-1.1); Partial Thromboplastin Ratio 1.2; Partial Thromboplastin Time 33.3 Seconds (21.0-31.0); Prothrombin Time 11.7 Seconds (9.0-12.0)
[2021-11-04 08:57] LABS: ALC (manual) 1.45 K/uL (1.2-3.4); ANC (manual) 9.36 K/uL (1.4-6.5); BUN Creatinine Ratio 21.9 (10-20); Basophils # (manual) 0.13 K/uL (0-0.2); Basophils % (manual) 1 %; Calcium 8.2 mg/dl (8.5-10.1); Creatinine Clr Calc Pharmacy 45.4 ml/min; Est GFR (African American) 87.7 ml/min; Est GFR (Non-African American) 75.6 ml/min; Lymphocytes # (manual) 1.45 K/uL (1.2-3.4); Lymphocytes % (manual) 11 %; Monocytes # (manual) 2.37 K/uL (0.24-0.82); Monocytes % (manual) 18 %; Neutrophils # (manual) 9.36 K/uL (1.4-6.5); Neutrophils % (manual) 71 %; Potassium 4.2 mmol/L (3.5-5.1)
[2021-11-04] MEDS ORDERED: OPTIRAY 320 100ml IV ONE (09:06)
--- NOTE | 2021-11-04 09:13 | CT Scan Report ---
CT head/brain wo con CLINICAL HISTORY: Status post fall. Patient on eliquis COMPARISON STUDY: 07/31/2020 CT DOSE: 1272.53 mGy.cm TECHNIQUE: Standard CT of the Brain was performed without IV contrast. A dose lowering technique was utilized adhering to the principles of ALARA. FINDINGS: Extraaxial space: There is no evidence for subdural hematoma. There are no extra-axial fluid collecti ons. Ventricles and cisterns: The ventricles are mildly dilated bilaterally. There is no evidence for midl ine shift or mass effect. Parenchyma: There is no subarachnoid or intraparenchymal hemorrhage. There is no evidence for an acut e infarct or cerebral edema. There is mild cerebral cortical atrophy and decreased attenuation in the periventricular white matter representing remote small vessel disease. There are no gross mass lesio ns. Osseous structures: There is no evidence for an acute fracture. The visualized paranasal sinuses are clear. The mastoid air cells are clear bilaterally. Soft tissues: There is no evidence for focal soft tissue swelling. IMPRESSION: 1. No acute intracerebral pathology. 2. Mild cerebral cortical atrophy and remote small vessel disease. ACT 112: Negative or not required by law. Electronically signed by: Connor Claudio M.D. 11/04/2021 9:11 AM
--- NOTE | 2021-11-04 09:26 | CT Scan Report ---
CT SCAN OF THE CERVICAL SPINE CLINICAL HISTORY: Fall. COMPARISON STUDY: CT of the cervical spine dated 09/13/2017. TECHNIQUE: CT scan of the cervical spine is performed from the skull base to the upper thoracic spine . Images are reviewed in the axial, sagittal, and coronal planes. IV contrast was not administered fo r this examination. A dose lowering technique was utilized adhering to the principles of ALARA. FINDINGS: Skeletal structures: The skeletal structures are osteopenic. There is no evidence of acute fracture o r subluxation involving the cervical spine. A mild chronic compression deformity of C7 is unchanged. Vertebral body height is otherwise maintained throughout the cervical spine. Alignment is preserved. The odontoid process and lateral masses are intact. The atlantoaxial articulation is preserved notin g productive degenerative change. The spinous processes appear intact. A bone island is incidentally noted in the body of C7. There is moderate multilevel cervical spondylosis. Uncovertebral and facet a rthropathy contribute to neural foraminal narrowing at several levels. Intervertebral discs: There is severe disc space narrowing at C5-C6. Mild to moderate disc space narr owing is noted at the remaining cervical levels. Central canal: Posterior disc osteophyte complexes at C4-C5, C5-C6, and C6-C7 likely contribute to mu ltilevel acquired compromise of the central canal. Soft tissues: The prevertebral and paraspinous soft tissues are within normal limits. Calcification a re noted in the left parotid gland. There is atherosclerotic calcification of the carotid bulbs. The thyroid gland is atrophic versus surgically absent. Calvarium: The visualized calvarium at the skull base appears intact. Brain parenchyma: Partially visualized brain parenchyma at the skull base is within normal limits. Sinuses and mastoids: Trace mucosal thickening is noted in the maxillary antra. The mastoid air cells are well pneumatized. Lung apices: Clear as visualized. IMPRESSION: 1. There is no evidence of acute fracture or subluxation involving the cervical spine. 2. Osteopenia and spondylotic change as above. ACT 112: Negative or not required by law. Electronically signed by: Fox Rodríguez M.D. 11/04/2021 9:24 AM
--- NOTE | 2021-11-04 09:36 | XRay Report ---
XR pelvis 1-2V routine CLINICAL HISTORY: Status post fall with left hip pain. COMPARISON STUDY: No previous studies for comparison. TECHNIQUE: [A single AP radiograph was obtained. FINDINGS: There is a comminuted, intratrochanteric fracture of the left femoral neck. The remaining bones are i ntact. There is mild narrowing hip joint spaces bilaterally. The femoral heads maintain their anatomi c positions within the acetabula. The SI joints are intact bilaterally. The remaining visualized bone s of the pelvis are intact. The patient is status post vertebroplasty of the lower lumbar spine. No f ocal soft tissue abnormalities identified. IMPRESSION: 1. Minimally displaced, comminuted intertrochanteric fracture of the left femoral neck. ACT 112: Negative or not required by law. Electronically signed by: Connor Claudio M.D. 11/04/2021 9:34 AM
[2021-11-04] MEDS ORDERED: MoRPHine SULFATE 4 MG/ML 1 ML CARP\\VIAL IV PRN (09:37)
[2021-11-04] MEDS ORDERED: MoRPHine SULFATE 2 MG/ML CARP IV PRN ×2 (09:37→12:24)
--- NOTE | 2021-11-04 09:38 | XRay Report ---
XR chest 1V not portable CLINICAL HISTORY: fall on eliquis TECHNIQUE: Single frontal radiograph of the chest was obtained. Comparison: Comparison is made to chest radiograph 06/29/2021 FINDINGS: No lines and tubes are seen. Cardiomegaly is noted. Reticular interstitial opacities are seen. Pleura l calcifications are unchanged. No evidence of pleural effusion or pneumothorax. IMPRESSION: No acute chest disease. ACT 112: Negative or not required by law. Electronically signed by: Cortez Pérez M.D. 11/04/2021 9:37 AM
--- NOTE | 2021-11-04 09:38 | CT Scan Report ---
CT abd pelvis IV con only CLINICAL HISTORY: fall on eliquis TECHNIQUE: Helical axial images of the abdomen and pelvis were obtained and displayed. Automated dose lowering techniques and/or adjustment according to patient size were utilized for this exam. This e xam was performed with intravenous contrast. COMPARISON: Comparison is made to CT abdomen pelvis 11/04/2021 FINDINGS: Lower chest: Cardiomegaly is seen. There is bibasilar atelectasis. Pleural plaques are noted. Liver: Unremarkable. No focal lesions are seen. Gallbladder and biliary tree: Patient is status post cholecystectomy. Physiologic prominence of the b iliary ducts is noted. Pancreas: Unremarkable, no focal lesions. Spleen: The spleen measures 11.9 cm in craniocaudal dimension. Adrenals: Unremarkable. Kidneys and ureters: Unremarkable. Bladder: Brown catheter is seen. Reproductive organs: Unremarkable. Bowel: Unremarkable appearance of the bowel. The appendix is normal. Lymph nodes Retroperitoneal: Unremarkable. Mesenteric: Unremarkable. Pelvic: Unremarkable. Peritoneum: Normal. Vessels: Atherosclerotic calcifications are seen. Abdominal wall: Unremarkable. Bones: Acute fracture of the left femur is partially visualized. A sclerotic focus measuring 11 mm is noted in the right iliac body. A bony fragment in the anterior aspect of the right acetabulum is unc hanged from prior exam. Multilevel compression deformities are seen. Cemented arthroplasties are note d at multiple levels. IMPRESSION: No intra-abdominal abnormalities such as laceration or hematoma are noted. There is a left femoral fr acture which is evaluated by dedicated radiograph. No additional acute fractures are seen. Multilevel degenerative changes are seen in the spine with cement arthroplasties. ACT 112: Negative or not required by law. Electronically signed by: Cortez Pérez M.D. 11/04/2021 9:37 AM
--- NOTE | 2021-11-04 09:44 | XRay Report ---
XR femur LT 2V routine CLINICAL HISTORY: fall on eliquis TECHNIQUE: 2 radiographic views of the left femur were obtained. Comparison: Comparison is made to pelvis radiograph 11/04/2021 FINDINGS: There is a comminuted fracture of the left femur, intratrochanteric. Multilevel degenerative changes are seen in the spine. Vascular calcifications are noted. Soft tissue swelling is noted. IMPRESSION: Intertrochanteric fracture of the left femoral neck is seen with mild apex lateral angulation. No add itional fractures are seen. ACT 112: Negative or not required by law. Electronically signed by: Cortez Pérez M.D. 11/04/2021 9:42 AM
[2021-11-04 10:05] LABS: Appearance Urine Clear (Clear); Bacteria Urine Automated Negative (Negative); Bilirubin Urine Negative (Negative); Blood Urine Negative (Negative); Cast Urine Automated 0 /lpf (0-5); Color Urine Yellow; Epithelial Cell Urine Auto 20-30 /lpf (0-5); Glucose Urine UA Negative (Negative); Ketones Urine Negative (Negative); Leukocyte Esterase Urine Negative (Negative); Nitrite Urine Negative (Negative); RBC Urine Automated 0-4 /hpf (0-4); Urobilinogen Urine Negative (Negative)
--- NOTE | 2021-11-04 10:08 | Communication Note ---
Date of Service: November 04, 2021 Patient was seen and examined independently at bedside. Chart reviewed. Case discussed with Elsy Millan PA-C and agree with the documentation above. In summary, this is a 86 year old female with h/o PAF/flutter on eliquis, PSVTs, chronic diastolic CHF, HTN, domperidone induced parkinsonism currently not on any meds, h/o CVA, SEJAL, depression, GERD, gastroparesis, hypothyroidism, kyphoscoliosis who presented to the ED today after a mechanical fall sustaining left hip fracture. Work up with CT head/C spine, CT A/P, CXR, femur and pelvis xray showed no acute injuries other than acute left hip fracture. Labs- WBC 13.19, Hb 14.3, Plt 155, INR 1.1, PTT 1.2, CK 20 Admit to medsurg on tele, hold further eliquis, consult ortho for hip surgery. Continue pain regimen, bowel regimen, PT eval after surgery. Rest as per the note above.
--- NOTE | 2021-11-04 10:11 | History & Physical Report ---
Date of Service November 04, 2021 Assessment & Plan (1) Intertrochanteric fracture of left femur: (2) PAF (paroxysmal atrial fibrillation): (3) Chronic heart failure with preserved ejection fraction (HFpEF): (4) Hypertension: Plan This is an 86-year-old female who has significant past medical history of PAF anticoagulated on elqiuis, chronic HFpEF, hypothyroidism RBBB, HTN, HLD, history of chronic gastroparesis and constipation, GERD,osteoporosis, history of TIA, macular degeneration, neuroleptic induced parkinsonism, depression and anxiety who presents to ED after standing a fall prior to arrival. Intertrochanteric fracture of left femur Mechanical fall Admit to med telemetry Consult orthopedics Last dose of Eliquis was on 11/03 at approximately 8 PM, continue to hold Eliquis Diet for today, n.p.o. after midnight MRSA screen ordered Patient with allergy to penicillin, hives; discussed with pharmacist and does not appear patient has had cephalosporins in house, patient's outpatient chart in [facility] was reviewed as well Preoperative antibiotics with IV Vanco ordered Oral tramadol as needed for moderate pain, IV morphine for severe pain Scheduled Tylenol, ice SCDs Chest x-ray, EKG reviewed Echocardiogram from 07/07/2021 revealed EF 60 to 65%, AV mildly calcified, mild aortic regurgitation, grade 1 diastolic dysfunction Patient is euvolemic, low risk procedure, pt is a moderate risk given age and comorbidities but benefit of surgery > risk, ok to proceed Anesthesia consulted Chronic HFpEF PAF HTN Continue lisinopril and metoprolol Hold Eliquis, to be resumed at discretion of orthopedics Daily weights, strict I's and O's Heart healthy, low-sodium diet Euvolemic Hypothyroidism Continue Synthroid Osteoporosis Previously treated with Prolia Vitamin D level in a.m. DVT prophylaxis: SCDs, Eliquis on hold Dispo: Med telemetry DNR/DNI PCP: Pelon Pt was seen and examined in collaboration with Dr. Chand, please see addendum History of Present Illness Chief Complaint: Fall prior to arrival. Primary Care Provider: Laura Bird MD This is an 86-year-old female who has significant past medical history of PAF anticoagulated on elqiuis, chronic HFpEF, hypothyroidism RBBB, HTN, HLD, history of chronic gastroparesis and constipation, GERD, osteoporosis, history of TIA, macular degeneration, neuroleptic induced parkinsonism, depression and anxiety who presents to ED after standing a fall prior to arrival. Her and daughter are at bedside. Patient states that she woke up this morning and took her Synthroid and her tramadol due to having back pain and left leg pain. She went to the bathroom and then walked over to the window to open the window. As she was trying to open the window she lost her balance and fell on her left side and buttock. She denies hitting her head. She recalls all events and denies loss of consciousness. She was unable to get up and called for her . Prior to today's events she was in otherwise stable health without recent illness. She lives at home with her and does ambulate with a cane and her at her side. For the most part she is sedentary as states she lays down and/or sleeps approximately 16 hours a day. She does state that she could walk 1 flight of steps or ambulate 1 block without getting chest pain or shortness of breath. She denies any recent fever, chills, sweats, lightheadedness, dizziness, cough, URI symptoms, nausea, vomiting, abdominal pain, dysuria, increased urgency or frequency with urination, melena or hematochezia. She has been taking stool softeners been moving bowels regularly. She did not eat anything yet today and her last dose of Eliquis was approximately 8-9PM last evening. Allergies Allergy/AdvReac Type Severity Reaction Status Date / Time adhesive Allergy Mild RASH, Verified 06/29/21 01:54 BLISTERS WITH TAPE erythromycin base Allergy Mild HIVES Verified 06/29/21 01:54 glycopyrrolate Allergy Mild HIVES Verified 06/29/21 01:54 Penicillins Allergy Mild hives Verified 06/29/21 01:54 hydrocodone AdvReac Intermediate SICK TO Verified 06/29/21 01:54 STOMACH acetaminophen [From Vicodin] AdvReac Unknown Gastrointestinal Verified 06/29/21 01:54 Upset Home Medications Medication Instructions Recorded Confirmed Type apixaban 2.5 mg tablet (Eliquis) 2.5 tab PO BID 11/04/21 11/04/21 History escitalopram oxalate 5 mg tablet 5 mg PO DAILY 11/04/21 11/04/21 History famotidine 10 mg tablet 10 mg PO DAILY PRN gerd 11/04/21 11/04/21 History levothyroxine 88 mcg tablet 88 mcg PO DAILY@0630 11/04/21 11/04/21 History (Synthroid) lisinopril 20 mg tablet 20 mg PO DAILY 11/04/21 11/04/21 History melatonin 5 mg tablet 5 mg PO HS PRN Sleep 11/04/21 11/04/21 History metoprolol succinate 100 mg 100 mg PO DAILY 11/04/21 11/04/21 History tablet,extended release 24 hr metoprolol succinate 25 mg 25 mg PO DAILY 11/04/21 11/04/21 History tablet,extended release 24 hr mirtazapine 15 mg tablet 7.5 mg PO HS 11/04/21 11/04/21 History tramadol 50 mg tablet 50 mg PO Q6H PRN Pain 11/04/21 11/04/21 History vit C 250 mg-vit E 90 mg-zinc 40 2 tab PO DAILY 11/04/21 11/04/21 History mg-copper 1 [id number] capsule (PreserVision AREDS-2) vitamin B complex 1 cap PO DAILY 11/04/21 11/04/21 History Past Med/Surg History Medical History Anxiety Atrial fibrillation PLAVIX STOPPED BY DENISE Compression fracture of lumbar vertebra Depression Fatigue Gastroparesis GERD (gastroesophageal reflux disease) Hiatal hernia History of colon polyps History of gastric ulcer Hypercalcemia Hypertension Hypothyroidism Macular degeneration of right eye Non-STEMI (non-ST elevated myocardial infarction) 04/2018--follows with Dr. Rehman Osteoarthritis Osteoporosis Parkinson disease Spinal stenosis Transient ischemic attack (TIA) "MANY MANY YRS AGO"F/U DR RIDER?[facility] Surgical History History of cholecystectomy History of colonoscopy History of dilatation and curettage History of esophagogastroduodenoscopy (EGD) History of lumbar surgery NO METAL History of phacoemulsification of cataract of both eyes with intraocular lens implantation History of thyroidectomy benign growth History of tooth extraction Family History Sister Family hx of colon cancer Other No family history of adverse response to anesthesia Social History Smoking Status: Never smoker Second Hand Exposure: No; Hx Alcohol Use: No Hx Substance Use: No Preferred Language: Afghan Communication Ability: Effective Manager Technical Training Required: No Beliefs That Will Affect Care: None marital status: Current Living Situation: Spouse Current Living Situation Comment: Lives with How many Children do You have: 2 Feels Safe at Home: Yes Assistive Devices: Cane, Glasses and Walker Review of Systems Review of Systems: All systems reviewed & are unremarkable except as noted in HPI & below Physical Exam Physical Exam: Constitutional: Elderly, F, lying in bed, somewhat masked facies, vitals as above, NAD, lying in bed, answers questions appropriately Head: Normocephalic, Atraumatic Eyes: PERRL, conjunctivae normal, anicteric sclerae ENMT: external ear and nose normal, oropharynx normal Neck: trachea midline, no thyromegaly normal visual inspection, dry membranes Respiratory: normal respiratory effort, lungs clear to auscultation, no wheeze, rales, rhonchi. Normal insp/exp effort, no accessory muscle use Cardiovascular: RRR, no murmur, no edema Vessels: no JVD or carotid bruit Chest: normal inspection of chest Abdomen: normal bowel sounds, soft, nontender, no hepatosplenomegaly Musculoskeletal: no cyanosis or clubbing, active range of motion to bilateral upper extremities, left lower extremity is shortened and inverted Skin: no rashes, warm and dry normal turgor Neurologic: PERRL, EOMI, accommodation nl, no face palsy, no dysarthria CN's II-XI intact bilaterally and moves all extremities Psychiatric: A+Ox3, euthymic affect Lymphatic: no cervical or axillary lymphadenopathy : Catheter draining yellow urine Results & Data Results & Data ([facility]) Vital Signs (Past 12 Hours) Vital Signs Temp Pulse Pulse Resp BP BP Pulse Ox 11/04/21 09:51 77 24 93 11/04/21 09:51 71 160/72 H 92 11/04/21 09:30 72 25 H 92 11/04/21 09:44 71 20 190/71 H 92 11/04/21 09:43 67 20 91 11/04/21 08:18 36.9 C 67 16 190/71 H 94 O2 Del Method 11/04/21 09:51 11/04/21 09:51 11/04/21 09:30 11/04/21 09:44 Room Air 11/04/21 09:43 Room Air 11/04/21 08:18 Room Air Diagnostic Findings Abdomen/Pelvis CT 11/04/21 08:24 CT abd pelvis IV con only CLINICAL HISTORY: fall on eliquis TECHNIQUE: Helical axial images of the abdomen and pelvis were obtained and displayed. Automated dose lowering techniques and/or adjustment according to patient size were utilized for this exam. This exam was performed with intravenous contrast. COMPARISON: Comparison is made to CT abdomen pelvis 11/04/2021 FINDINGS: Lower chest: Cardiomegaly is seen. There is bibasilar atelectasis. Pleural plaques are noted. Liver: Unremarkable. No focal lesions are seen. Gallbladder and biliary tree: Patient is status post cholecystectomy. Physiologic prominence of the biliary ducts is noted. Pancreas: Unremarkable, no focal lesions. Spleen: The spleen measures 11.9 cm in craniocaudal dimension. Adrenals: Unremarkable. Kidneys and ureters: Unremarkable. Bladder: Brown catheter is seen. Reproductive organs: Unremarkable. Bowel: Unremarkable appearance of the bowel. The appendix is normal. Lymph nodes Retroperitoneal: Unremarkable. Mesenteric: Unremarkable. Pelvic: Unremarkable. Peritoneum: Normal. Vessels: Atherosclerotic calcifications are seen. Abdominal wall: Unremarkable. Bones: Acute fracture of the left femur is partially visualized. A sclerotic focus measuring 11 mm is noted in the right iliac body. A bony fragment in the anterior aspect of the right acetabulum is unchanged from prior exam. Multilevel compression deformities are seen. Cemented arthroplasties are noted at multiple levels. IMPRESSION: No intra-abdominal abnormalities such as laceration or hematoma are noted. There is a left femoral fracture which is evaluated by dedicated radiograph. No additional acute fractures are seen. Multilevel degenerative changes are seen in the spine with cement arthroplasties. ACT 112: Negative or not required by law. Electronically signed by: Cortez Pérez M.D. 11/04/2021 9:[address] 11/04/21 08:24 CT SCAN OF THE CERVICAL SPINE CLINICAL HISTORY: Fall. COMPARISON STUDY: CT of the cervical spine dated 09/13/2017. TECHNIQUE: CT scan of the cervical spine is performed from the skull base to the upper thoracic spine. Images are reviewed in the axial, sagittal, and coronal planes. IV contrast was not administered for this examination. A dose lowering technique was utilized adhering to the principles of ALARA. FINDINGS: Skeletal structures: The skeletal structures are osteopenic. There is no evidence of acute fracture or subluxation involving the cervical spine. A mild chronic compression deformity of C7 is unchanged. Vertebral body height is otherwise maintained throughout the cervical spine. Alignment is preserved. The odontoid process and lateral masses are intact. The atlantoaxial articulation is preserved noting productive degenerative change. The spinous processes appear intact. A bone island is incidentally noted in the body of C7. There is moderate multilevel cervical spondylosis. Uncovertebral and facet arthropathy contribute to neural foraminal narrowing at several levels. Intervertebral discs: There is severe disc space narrowing at C5-C6. Mild to mod erate disc space narrowing is noted at the remaining cervical levels. Central canal: Posterior disc osteophyte complexes at C4-C5, C5-C6, and C6-C7 likely contribute to multilevel acquired compromise of the central canal. Soft tissues: The prevertebral and paraspinous soft tissues are within normal limits. Calcification are noted in the left parotid gland. There is atherosclerotic calcification of the carotid bulbs. The thyroid gland is atrophic versus surgically absent. Calvarium: The visualized calvarium at the skull base appears intact. Brain parenchyma: Partially visualized brain parenchyma at the skull base is within normal limits. Sinuses and mastoids: Trace mucosal thickening is noted in the maxillary antra. The mastoid air cells are well pneumatized. Lung apices: Clear as visualized. IMPRESSION: 1. There is no evidence of acute fracture or subluxation involving the cervical spine. 2. Osteopenia and spondylotic change as above. ACT 112: Negative or not required by law. Electronically signed by: Fox Rodríguez M.D. 11/04/2021 9:24 AM Chest X-Ray 11/04/21 08:24 XR chest 1V not portable CLINICAL HISTORY: fall on eliquis TECHNIQUE: Single frontal radiograph of the chest was obtained. Comparison: Comparison is made to chest radiograph 06/29/2021 FINDINGS: No lines and tubes are seen. Cardiomegaly is noted. Reticular interstitial opacities are seen. Pleural calcifications are unchanged. No evidence of pleural effusion or pneumothorax. IMPRESSION: No acute chest disease. ACT 112: Negative or not required by law. Electronically signed by: Cortez Pérez M.D. 11/04/2021 9:37 AM Femur X-Ray 11/04/21 08:24 XR femur LT 2V routine CLINICAL HISTORY: fall on eliquis TECHNIQUE: 2 radiographic views of the left femur were obtained. Comparison: Comparison is made to pelvis radiograph 11/04/2021 FINDINGS: There is a comminuted fracture of the left femur, intratrochanteric. Multilevel degenerative changes are seen in the spine. Vascular calcifications are noted. Soft tissue swelling is noted. IMPRESSION: Intertrochanteric fracture of the left femoral neck is seen with mild apex lateral angulation. No additional fractures are seen. ACT 112: Negative or not required by law. Electronically signed by: Cortez Pérez M.D. 11/04/2021 9:[address] 11/04/21 08:24 CT head/brain wo con CLINICAL HISTORY: Status post fall. Patient on eliquis COMPARISON STUDY: 07/31/2020 CT DOSE: 1272.53 mGy.cm TECHNIQUE: Standard CT of the Brain was performed without IV contrast. A dose lowering technique was utilized adhering to the principles of ALARA. FINDINGS: Extraaxial space: There is no evidence for subdural hematoma. There are no extra-axial fluid collections. Ventricles and cisterns: The ventricles are mildly dilated bilaterally. There is no evidence for midline shift or mass effect. Parenchyma: There is no subarachnoid or intraparenchymal hemorrhage. There is no evidence for an acute infarct or cerebral edema. There is mild cerebral cortical atrophy and decreased attenuation in the periventricular white matter representing remote small vessel disease. There are no gross mass lesions. Osseous structures: There is no evidence for an acute fracture. The visualized paranasal sinuses are clear. The mastoid air cells are clear bilaterally. Soft tissues: There is no evidence for focal soft tissue swelling. IMPRESSION: 1. No acute intracerebral pathology. 2. Mild cerebral cortical atrophy and remote small vessel disease. ACT 112: Negative or not required by law. Electronically signed by: Connor Claudio M.D. 11/04/2021 9:11 AM Pelvis X-Ray 11/04/21 08:24 XR pelvis 1-2V routine CLINICAL HISTORY: Status post fall with left hip pain. COMPARISON STUDY: No previous studies for comparison. TECHNIQUE: [A single AP radiograph was obtained. FINDINGS: There is a comminuted, intratrochanteric fracture of the left femoral neck. The remaining bones are intact. There is mild narrowing hip joint spaces bilaterally. The femoral heads maintain their anatomic positions within the acetabula. The SI joints are intact bilaterally. The remaining visualized bones of the pelvis are intact. The patient is status post vertebroplasty of the lower lumbar spine. No focal soft tissue abnormalities identified. IMPRESSION: 1. Minimally displaced, comminuted intertrochanteric fracture of the left femoral neck. ACT 112: Negative or not required by law. Electronically signed by: Connor Claudio M.D. 11/04/2021 9:34 AM Medications Administered Medication List Morphine Sulfate (Morphine Sulfate 4 Mg/Ml 1 Ml Carp\\Vial) 4 mg IV Q1H PRN PRN Reason: Severe Pain (Rating 7,8,9,10) Stop: 11/18/21 09:36 Last Admin: 11/04/21 09:44 Dose: 4 mg Documented By: HS Discontinued Medications Ioversol (Optiray 320 100ml) 95 ml IV ONCE ONE Stop: 11/04/21 09:07 Last Admin: 11/04/21 09:06 Dose: 95 ml Documented By: LESLYEF Morphine Sulfate (Morphine Sulfate 2 Mg/Ml Carp) 2 mg IV NOW STA Stop: 11/04/21 08:36 Last Admin: 11/04/21 08:46 Dose: 2 mg Documented By: AW ECG Rate (beats per minute): 67 Rhythm: normal sinus Findings: + RBBB Additional Comments: t wave inversion Lead III, nonspec t wave changes otherwise no acute change COVID-19 Results Results COVID-19 Adm Lab Results: RBC 5.05 M/uL (3.93-5.22) 11/04/21 WBC 13.19 K/ul (4.8-10.8) H 11/04/21 Hgb 14.3 g/dl (12.0-16.0) 11/04/21 Hct 45.8 % (34.1-44.9) H 11/04/21 Plt Count 155 K/uL (130-400) 11/04/21 ANC 9.36 K/uL (1.4-6.5) H 11/04/21 ALC 1.45 K/uL (1.2-3.4) 11/04/21 Neutrophils % (Manual) 71 % 11/04/21 Lymphocytes % (Manual) 11 % 11/04/21 Monocytes % (Manual) 18 % 11/04/21 Basophils % (Manual) 1 % 11/04/21 Neutrophils # (Manual) 9.36 K/uL (1.4-6.5) H 11/04/21 Lymphocytes # (Manual) 1.45 K/uL (1.2-3.4) 11/04/21 Monocytes # (Manual) 2.37 K/uL (0.24-0.82) H 11/04/21 Basophils # (Manual) 0.13 K/uL (0-0.2) 11/04/21 Na 141 mmol/L (136-145) 11/04/21 K 4.3 mmol/L (3.5-5.1) 11/04/21 Cl 105 mmol/L (98-107) 11/04/21 CO2 28 mmol/L (21-32) 11/04/21 Anion Gap 8 (3-11) 11/04/21 BUN 15 mg/dl (6-23) 11/04/21 Creatinine 0.73 mg/dl (0.6-1.2) 11/04/21 BUN/Creatinine Ratio 20.5 (10-20) H 11/04/21 Glucose Level 123 mg/dl (70-99(Fasting)) H 11/04/21 Ca 8.6 mg/dl (8.5-10.1) 11/04/21 Total Bilirubin 1.2 mg/dl (0.2-1.0) H 11/04/21 AST/SGOT 20 U/L (13-39) 11/04/21 ALT/SGPT 12 U/L (7-52) 11/04/21 Alkaline Phosphatase 86 U/L (34-104) 11/04/21 Total Protein 6.0 gm/dl (6.0-8.3) 11/04/21 Albumin 3.8 gm/dl (3.4-5.0) 11/04/21 Globulin 2.2 gm/dl (2.5-4.0) L 11/04/21 Albumin/Globulin Ratio 1.7 (0.9-2) 11/04/21 Total CK 20 U/L (26-192) L 11/04/21 PTT 33.3 Seconds (21.0-31.0) H 11/04/21 INR 1.1 (0.9-1.1) 11/04/21 SARS-CoV-2, RNA, NAAT NEGATIVE (NEGATIVE) 11/04/21 Chest X-Ray 11/04/21 Code Status & VTE Plan Code Status DNR/DNI VTE Prophylaxis Plan VTE Prophylaxis will be ordered: No Supervising Physician Co-Signing Physician Notes Patient was seen and examined independently at bedside. Chart reviewed. Case discussed with Elsy Millan PA-C and agree with the documentation above. In summary, this is a 86 year old female with h/o PAF/flutter on eliquis, PSVTs, HTN, domperidone induced parkinsonism currently not on any meds, h/o CVA, SEJAL, depression, GERD, gastroparesis, hypothyroidism, kyphoscoliosis who presented to the ED today after a mechanical fall sustaining left hip fracture. Work up with CT head/C spine, CT A/P, CXR, femur and pelvis xray showed no acute injuries other than acute left hip fracture. Labs- WBC 13.19, Hb 14.3, Plt 155, INR 1.1, PTT 1.2, sodium 141, K 4.3, Cr 0.73, eGFR 75, BG 123. CK 20, LFT unremarkable, UA unremarkable, Covid negative. Vitals stable, BP on higher side due to pain. She had only taken her synthroid and tramadol this morning and had not taken any of her other meds including BP meds. Last dose of eliquis was last evening. States pain is much better after the IV morphine in the ED. On exam- lying comfortably in bed, not in acute distress, AAO, chest clear, heart sounds normal, abdomen benign, no LE edema, no ecchymoses. Admit to medsurg on tele, hold further eliquis. Seen by ortho- plan for surgery tomorrow. Can eat today, npo after midnight, bed rest, keep LLE elevated. Continue pain regimen, bowel regimen, PT eval after surgery. Resume her BP meds. Family at bedside and were updated regarding plan of care. Rest as per the note above.
[2021-11-04 10:19] LABS: Protein Urine 1+ (Negative)
[2021-11-04 10:21] LABS: iSTAT Creatinine 0.7 mg/dl (0.6-1.3); iSTAT Hemoglobin 15.3 g/dl (12.0-16.0); iSTAT Ionized Calcium 1.08 mmol/l (1.12-1.32); iSTAT Potassium 4.6 mmol/L (3.3-5.0)
[2021-11-04 10:22] LABS: Albumin Globulin Ratio 1.7 (0.9-2); Albumin Level 3.8 gm/dl (3.4-5.0); BUN Creatinine Ratio 20.5 (10-20); Bilirubin,Total 1.2 mg/dl (0.2-1.0); Calcium 8.6 mg/dl (8.5-10.1); Creatinine Clr Calc Pharmacy 45.4 ml/min; Est GFR (African American) 87.7 ml/min; Est GFR (Non-African American) 75.6 ml/min; Globulin 2.2 gm/dl (2.5-4.0); Potassium 4.3 mmol/L (3.5-5.1)
[2021-11-04] MEDS ORDERED: METOPROLOL SUCC 25MG EXT REL TAB PO STA (10:45)
--- NOTE | 2021-11-04 11:31 | Electrocardiogram Report ---
Test Reason : Blood Pressure : / mmHG Vent. Rate : 067 BPM Atrial Rate : 067 BPM P-R Int : 178 ms QRS Dur : 128 ms QT Int : 438 ms P-R-T Axes : 069 082 005 degrees QTc Int : 462 ms Normal sinus rhythm Possible Left atrial enlargement Right bundle branch block Abnormal ECG When compared with ECG of 29-JUN-2021 02:01, QRS duration has increased Confirmed by Thom Briceno ([id number]) on 11/04/2021 11:30:57 AM Referred By: Confirmed By:Yash Briceno
--- NOTE | 2021-11-04 11:53 | Orthopedic Consultation ---
Date of Consultation November 04, 2021 Assessment & Plan (1) Intertrochanteric fracture of left femur: X-rays reviewed. Patient will require a left TFN. I have spoken to Dr. Britton about the patient. Patient takes Eliquis p.o. twice daily and her last dose was approximately 8:00 last night. We will need to wait at least 24 hours to perform surgery. We will plan on taking her to the operating room tomorrow for her left TFN. This has been discussed with the patient and her . Her Eliquis will be held for now. Patient may eat today and be n.p.o. after midnight tonight. Plan for left TFN tomorrow. History of Present Illness Reason for Consultation: Left intertrochanteric hip fracture History of Present Illness Patient is an 86-year-old female who has significant past medical history of PAF anticoagulated on Eliquis,chronic HFpEF, hypothyroidism, RBBB, HTN, HLD, history of chronic gastroparesis and constipation, GERD, Osteoporosis, history of TIA, macular degeneration, neuroleptic induced parkinsonism, depression and anxietywho had a mechanical fall today. Patient states that she was having some discomfort down her left lower extremity from her back. She had gotten up out of bed and walk to the bathroom. She took a tramadol tablet and came back into the room. She said she was opening a window and when she was trying to do so, she ended up losing her balance. She fell to the floor onto her left side and left buttock. She had immediate pain in her left hip and groin and was unable to get up and ambulate. She called her for help. She denies hitting her head. She denies loss of consciousness. She denies any shortness of breath, chest pain, lightheadedness prior to or after the fall. She was brought to the emergency room here at [facility] and was seen by the staff. X-rays were taken and was found that she had a left intertrochanteric hip fracture. She is being admitted by the hospitalist service and we have been asked to see her for her hip fracture. Currently she is comfortable and has no new complaints. Allergies Allergy/AdvReac Type Severity Reaction Status Date / Time adhesive Allergy Mild RASH, Verified 06/29/21 01:54 BLISTERS WITH TAPE erythromycin base Allergy Mild HIVES Verified 06/29/21 01:54 glycopyrrolate Allergy Mild HIVES Verified 06/29/21 01:54 Penicillins Allergy Mild hives Verified 06/29/21 01:54 hydrocodone AdvReac Intermediate SICK TO Verified 06/29/21 01:54 STOMACH acetaminophen [From Vicodin] AdvReac Unknown Gastrointestinal Verified 06/29/21 01:54 Upset Home Medications Medication Instructions Recorded Confirmed Type apixaban 2.5 mg tablet (Eliquis) 2.5 tab PO BID 11/04/21 11/04/21 History escitalopram oxalate 5 mg tablet 5 mg PO DAILY 11/04/21 11/04/21 History famotidine 10 mg tablet 10 mg PO DAILY PRN gerd 11/04/21 11/04/21 History levothyroxine 88 mcg tablet 88 mcg PO DAILY@0630 11/04/21 11/04/21 History (Synthroid) lisinopril 20 mg tablet 20 mg PO DAILY 11/04/21 11/04/21 History melatonin 5 mg tablet 5 mg PO HS PRN Sleep 11/04/21 11/04/21 History metoprolol succinate 100 mg 100 mg PO DAILY 11/04/21 11/04/21 History tablet,extended release 24 hr metoprolol succinate 25 mg 25 mg PO DAILY 11/04/21 11/04/21 History tablet,extended release 24 hr mirtazapine 15 mg tablet 7.5 mg PO HS 11/04/21 11/04/21 History tramadol 50 mg tablet 50 mg PO Q6H PRN Pain 11/04/21 11/04/21 History vit C 250 mg-vit E 90 mg-zinc 40 2 tab PO DAILY 11/04/21 11/04/21 History mg-copper 1 cr-aoynus-ivxylv capsule (PreserVision AREDS-2) vitamin B complex 1 cap PO DAILY 11/04/21 11/04/21 History Patient History Medical History Anxiety Atrial fibrillation PLAVIX STOPPED BY DENISE Compression fracture of lumbar vertebra Depression Fatigue Gastroparesis GERD (gastroesophageal reflux disease) Hiatal hernia History of colon polyps History of gastric ulcer Hypercalcemia Hypertension Hypothyroidism Macular degeneration of right eye Non-STEMI (non-ST elevated myocardial infarction) 04/2018--follows with Dr. Denise Osteoarthritis Osteoporosis Parkinson disease Spinal stenosis Transient ischemic attack (TIA) "MANY MANY YRS AGO"F/U DR RIDER?[facility] Surgical History History of cholecystectomy History of colonoscopy History of dilatation and curettage History of esophagogastroduodenoscopy (EGD) History of lumbar surgery NO METAL History of phacoemulsification of cataract of both eyes with intraocular lens implantation History of thyroidectomy benign growth History of tooth extraction Family History Sister Family hx of colon cancer Other No family history of adverse response to anesthesia Social History Smoking Status: Never smoker Second Hand Exposure: No; Hx Alcohol Use: No Hx Substance Use: No Preferred Language: Wallisian Communication Ability: Effective Machine Attendant Required: No Beliefs That Will Affect Care: None marital status: Current Living Situation: Spouse Current Living Situation Comment: Lives with How many Children do You have: 2 Feels Safe at Home: Yes Assistive Devices: Cane, Glasses and Walker Physical Exam Physical Exam: Patient is an 86-year-old white female who appears her stated age. She is alert and oriented to person and place. No acute distress. Pleasant and cooperative. On examination of her left lower extremity, it is shortened and externally rotated compared to the right. She has good range of motion of her left toes and ankle. Denies tenderness over the left knee and there does not appear to be an effusion. Knee range of motion deferred secondary to left hip fracture. She has some pain on palpation over the lateral aspect of the left hip. Range of motion deferred secondary to fracture. Right lower extremity is unaffected and she is nontender at the hip, knee, and ankle. Range of motion does not seem to be limited. Upper extremities are unaffected and she is nontender at the shoulders, elbows, and wrists. Range of motion is within normal limits. Distal pulses are equal bilaterally of the upper and lower extremities. There is no gross motor or sensory loss seen at this time. She states she does have some lumbar back pain that has not increased since the fall. And states that it is her normal lumbar pain that she has. She is denying radiculopathy at this time. Results & Data ([facility]) Vital Signs (Past 12 Hours) Vital Signs Temp Pulse Pulse Resp BP BP Pulse Ox 11/04/21 11:00 66 18 180/68 H 99 11/04/21 09:51 77 24 93 11/04/21 09:51 71 160/72 H 92 11/04/21 09:30 72 25 H 92 11/04/21 09:44 71 20 190/71 H 92 11/04/21 09:43 67 20 91 11/04/21 08:18 36.9 C 67 16 190/71 H 94 O2 Del Method 11/04/21 11:00 Room Air 11/04/21 09:51 11/04/21 09:51 11/04/21 09:30 11/04/21 09:44 Room Air 11/04/21 09:43 Room Air 11/04/21 08:18 Room Air Laboratory Results 11/04/21 11/04/21 11/04/21 Range/Units 10:17 09:42 08:31 WBC (4.8-10.8) K/ul RBC (3.93-5.22) M/uL Hgb (12.0-16.0) g/dl POC Hgb (12.0-16.0) g/dl Hct (34.1-44.9) % POC Hct (37-47) % MCV (80.0-100.0) fL MCH (25.0-34.0) pg MCHC (32.0-36.0) g/dL RDW Std Deviation (36.4-46.3) fL RDW Coeff of Constantine (11.5-14.5) % Plt Count (130-400) K/uL MPV (9.4-12.3) fL Neutrophils % (Manual) % Lymphocytes % (Manual) % Monocytes % (Manual) % Basophils % (Manual) % Neutrophils # (Manual) (1.4-6.5) K/uL Total Absolute Neuts (1.4-6.5) K/uL Lymphocytes # (Manual) (1.2-3.4) K/uL Total Abs Lymphocytes (1.2-3.4) K/uL Monocytes # (Manual) (0.24-0.82) K/uL Basophils # (Manual) (0-0.2) K/uL PT (9.0-12.0) Seconds INR (0.9-1.1) APTT (21.0-31.0) Seconds PTT Ratio POC Sodium (135-144) mmol/L Sodium (136-145) mmol/L POC Potassium (3.3-5.0) mmol/L Potassium (3.5-5.1) mmol/L POC Chloride (101-112) mmol/L Chloride (98-107) mmol/L Carbon Dioxide (21-32) mmol/L POC Total CO2 (24-31) mmol/L Anion Gap (3-11) POC Anion Gap (16-25) mmol/L POC BUN (7-18) mg/dl BUN (6-23) mg/dl Creatinine (0.6-1.2) mg/dl POC Creatinine (0.6-1.3) mg/dl Est Cr Clr Drug Dosing ml/min Est GFR ( Amer) ml/min Est GFR (Non-Af Amer) ml/min BUN/Creatinine Ratio (10-20) Glucose (70-99(Fasting)) mg/dl POC Glucose (other) (70-99) mg/dl Calcium (8.5-10.1) mg/dl POC Ioniz Calcium Celena (1.12-1.32) mmol/l Total Bilirubin (0.2-1.0) mg/dl AST (13-39) U/L ALT (7-52) U/L Alkaline Phosphatase (34-104) U/L Total Creatine Kinase (26-192) U/L Total Protein (6.0-8.3) gm/dl Albumin (3.4-5.0) gm/dl Globulin (2.5-4.0) gm/dl Albumin/Globulin Ratio (0.9-2) Urine Color Yellow Urine Appearance Clear (Clear) Urine pH 8.0 H (4.5-7.5) Ur Specific Rico 1.010 (1.000-1.030) Urine Protein 1+ H (Negative) Urine Glucose (UA) Negative (Negative) Urine Ketones Negative (Negative) Urine Blood Negative (Negative) Urine Nitrite Negative (Negative) Urine Bilirubin Negative (Negative) Urine Urobilinogen Negative (Negative) Ur Leukocyte Esterase Negative (Negative) Urine WBC (Auto) 1-5 (0-5) /hpf Urine RBC (Auto) 0-4 (0-4) /hpf U Hyaline Cast (Auto) 0 (0-5) /lpf U Epithel Cells (Auto) 20-30 H (0-5) /lpf Urine Bacteria (Auto) Negative (Negative) Nasal Screen MRSA (PCR) Negative (Negative) SARS-CoV-2, RNA, NAAT NEGATIVE (NEGATIVE) 11/04/21 11/04/21 11/04/21 Range/Units 08:27 08:23 08:23 WBC (4.8-10.8) K/ul RBC (3.93-5.22) M/uL Hgb (12.0-16.0) g/dl POC Hgb 15.3 (12.0-16.0) g/dl Hct (34.1-44.9) % POC Hct 45 (37-47) % MCV (80.0-100.0) fL MCH (25.0-34.0) pg MCHC (32.0-36.0) g/dL RDW Std Deviation (36.4-46.3) fL RDW Coeff of Constantine (11.5-14.5) % Plt Count (130-400) K/uL MPV (9.4-12.3) fL Neutrophils % (Manual) % Lymphocytes % (Manual) % Monocytes % (Manual) % Basophils % (Manual) % Neutrophils # (Manual) (1.4-6.5) K/uL Total Absolute Neuts (1.4-6.5) K/uL Lymphocytes # (Manual) (1.2-3.4) K/uL Total Abs Lymphocytes (1.2-3.4) K/uL Monocytes # (Manual) (0.24-0.82) K/uL Basophils # (Manual) (0-0.2) K/uL PT (9.0-12.0) Seconds INR (0.9-1.1) APTT (21.0-31.0) Seconds PTT Ratio POC Sodium 140 (135-144) mmol/L Sodium 141 139 (136-145) mmol/L POC Potassium 4.6 (3.3-5.0) mmol/L Potassium 4.3 4.2 (3.5-5.1) mmol/L POC Chloride 101 (101-112) mmol/L Chloride 105 105 (98-107) mmol/L Carbon Dioxide 28 31 (21-32) mmol/L POC Total CO2 31 (24-31) mmol/L Anion Gap 8 3 (3-11) POC Anion Gap 14.0 L (16-25) mmol/L POC BUN 18 (7-18) mg/dl BUN 15 16 (6-23) mg/dl Creatinine 0.73 0.73 (0.6-1.2) mg/dl POC Creatinine 0.7 (0.6-1.3) mg/dl Est Cr Clr Drug Dosing 45.4 45.4 ml/min Est GFR ( Amer) 87.7 87.7 ml/min Est GFR (Non-Af Amer) 75.6 75.6 ml/min BUN/Creatinine Ratio 20.5 H 21.9 H (10-20) Glucose 123 H 123 H (70-99(Fasting)) mg/dl POC Glucose (other) 122 H (70-99) mg/dl Calcium 8.6 8.2 L (8.5-10.1) mg/dl POC Ioniz Calcium Celena 1.08 L (1.12-1.32) mmol/l Total Bilirubin 1.2 H (0.2-1.0) mg/dl AST 20 (13-39) U/L ALT 12 (7-52) U/L Alkaline Phosphatase 86 (34-104) U/L Total Creatine Kinase 20 L (26-192) U/L Total Protein 6.0 (6.0-8.3) gm/dl Albumin 3.8 (3.4-5.0) gm/dl Globulin 2.2 L (2.5-4.0) gm/dl Albumin/Globulin Ratio 1.7 (0.9-2) Urine Color Urine Appearance (Clear) Urine pH (4.5-7.5) Ur Specific Rico (1.000-1.030) Urine Protein (Negative) Urine Glucose (UA) (Negative) Urine Ketones (Negative) Urine Blood (Negative) Urine Nitrite (Negative) Urine Bilirubin (Negative) Urine Urobilinogen (Negative) Ur Leukocyte Esterase (Negative) Urine WBC (Auto) (0-5) /hpf Urine RBC (Auto) (0-4) /hpf U Hyaline Cast (Auto) (0-5) /lpf U Epithel Cells (Auto) (0-5) /lpf Urine Bacteria (Auto) (Negative) Nasal Screen MRSA (PCR) (Negative) SARS-CoV-2, RNA, NAAT (NEGATIVE) 11/04/21 11/04/21 Range/Units 08:23 08:23 WBC 13.19 H (4.8-10.8) K/ul RBC 5.05 (3.93-5.22) M/uL Hgb 14.3 (12.0-16.0) g/dl POC Hgb (12.0-16.0) g/dl Hct 45.8 H (34.1-44.9) % POC Hct (37-47) % MCV 90.7 (80.0-100.0) fL MCH 28.3 (25.0-34.0) pg MCHC 31.2 L (32.0-36.0) g/dL RDW Std Deviation 46.4 H (36.4-46.3) fL RDW Coeff of Constantine 13.9 (11.5-14.5) % Plt Count 155 (130-400) K/uL MPV 10.4 (9.4-12.3) fL Neutrophils % (Manual) 71 % Lymphocytes % (Manual) 11 % Monocytes % (Manual) 18 % Basophils % (Manual) 1 % Neutrophils # (Manual) 9.36 H (1.4-6.5) K/uL Total Absolute Neuts 9.36 H (1.4-6.5) K/uL Lymphocytes # (Manual) 1.45 (1.2-3.4) K/uL Total Abs Lymphocytes 1.45 (1.2-3.4) K/uL Monocytes # (Manual) 2.37 H (0.24-0.82) K/uL Basophils # (Manual) 0.13 (0-0.2) K/uL PT 11.7 (9.0-12.0) Seconds INR 1.1 (0.9-1.1) APTT 33.3 H (21.0-31.0) Seconds PTT Ratio 1.2 POC Sodium (135-144) mmol/L Sodium (136-145) mmol/L POC Potassium (3.3-5.0) mmol/L Potassium (3.5-5.1) mmol/L POC Chloride (101-112) mmol/L Chloride (98-107) mmol/L Carbon Dioxide (21-32) mmol/L POC Total CO2 (24-31) mmol/L Anion Gap (3-11) POC Anion Gap (16-25) mmol/L POC BUN (7-18) mg/dl BUN (6-23) mg/dl Creatinine (0.6-1.2) mg/dl POC Creatinine (0.6-1.3) mg/dl Est Cr Clr Drug Dosing ml/min Est GFR ( Amer) ml/min Est GFR (Non-Af Amer) ml/min BUN/Creatinine Ratio (10-20) Glucose (70-99(Fasting)) mg/dl POC Glucose (other) (70-99) mg/dl Calcium (8.5-10.1) mg/dl POC Ioniz Calcium Celena (1.12-1.32) mmol/l Total Bilirubin (0.2-1.0) mg/dl AST (13-39) U/L ALT (7-52) U/L Alkaline Phosphatase (34-104) U/L Total Creatine Kinase (26-192) U/L Total Protein (6.0-8.3) gm/dl Albumin (3.4-5.0) gm/dl Globulin (2.5-4.0) gm/dl Albumin/Globulin Ratio (0.9-2) Urine Color Urine Appearance (Clear) Urine pH (4.5-7.5) Ur Specific Rico (1.000-1.030) Urine Protein (Negative) Urine Glucose (UA) (Negative) Urine Ketones (Negative) Urine Blood (Negative) Urine Nitrite (Negative) Urine Bilirubin (Negative) Urine Urobilinogen (Negative) Ur Leukocyte Esterase (Negative) Urine WBC (Auto) (0-5) /hpf Urine RBC (Auto) (0-4) /hpf U Hyaline Cast (Auto) (0-5) /lpf U Epithel Cells (Auto) (0-5) /lpf Urine Bacteria (Auto) (Negative) Nasal Screen MRSA (PCR) (Negative) SARS-CoV-2, RNA, NAAT (NEGATIVE) Diagnostic Findings Patient:CHUCKIE WATSON Admit Date:11/04/21 MR#:[id number] Address1:[address] [place] [address] Acct ID:[id number] Address2:[facility] [address] Date:1935 [facility] Zip:[place] [address] Age:86 Location:ED Sex:F Room/Bed: Att Phy: Diagnosis:FALL, L HIP & LEG PAIN Eugenie Phy:Laura Bird MD Service Date:11/04/21 [facility] Phy: Interpreting Phy:Cortez Pérez MDAdmit Phy: Ordering Phy:Mainor Oquendo MD cc: ~ XR femur LT 2V routine CLINICAL HISTORY: fall on eliquis TECHNIQUE: 2 radiographic views of the left femur were obtained. Comparison: Comparison is made to pelvis radiograph 11/04/2021 FINDINGS: There is a comminuted fracture of the left femur, intratrochanteric. Multilevel degenerative changes are seen in the spine. Vascular calcifications are noted. Soft tissue swelling is noted. IMPRESSION: Intertrochanteric fracture of the left femoral neck is seen with mild apex lateral angulation. No additional fractures are seen. ACT 112: Negative or not required by law.
--- NOTE | 2021-11-04 12:17 | Anesthesiology Consultation ---
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 Surgery Operation Date: 11/05/21 07:00 Proposed Procedures p Left Troch Nail - Sravan Britton MD Height/Weight Height: 5 ft 2 in Weight: 55 kg Allergies Allergy/AdvReac Type Severity Reaction Status Date / Time adhesive Allergy Mild RASH, Verified 06/29/21 01:54 BLISTERS WITH TAPE erythromycin base Allergy Mild HIVES Verified 06/29/21 01:54 glycopyrrolate Allergy Mild HIVES Verified 06/29/21 01:54 Penicillins Allergy Mild hives Verified 06/29/21 01:54 hydrocodone AdvReac Intermediate SICK TO Verified 06/29/21 01:54 STOMACH acetaminophen [From Vicodin] AdvReac Unknown Gastrointestinal Verified 06/29/21 01:54 Upset Medications Home Medications Medication Instructions Recorded Confirmed Last Taken apixaban 2.5 mg tablet (Eliquis) 2.5 tab PO BID 11/04/21 11/04/21 Unknown escitalopram oxalate 5 mg tablet 5 mg PO DAILY 11/04/21 11/04/21 Unknown famotidine 10 mg tablet 10 mg PO DAILY PRN gerd 11/04/21 11/04/21 Unknown levothyroxine 88 mcg tablet 88 mcg PO DAILY@0630 11/04/21 11/04/21 Unknown (Synthroid) lisinopril 20 mg tablet 20 mg PO DAILY 11/04/21 11/04/21 Unknown melatonin 5 mg tablet 5 mg PO HS PRN Sleep 11/04/21 11/04/21 Unknown metoprolol succinate 100 mg 100 mg PO DAILY 11/04/21 11/04/21 Unknown tablet,extended release 24 hr metoprolol succinate 25 mg 25 mg PO DAILY 11/04/21 11/04/21 Unknown tablet,extended release 24 hr mirtazapine 15 mg tablet 7.5 mg PO HS 11/04/21 11/04/21 Unknown tramadol 50 mg tablet 50 mg PO Q6H PRN Pain 11/04/21 11/04/21 Unknown vit C 250 mg-vit E 90 mg-zinc 40 2 tab PO DAILY 11/04/21 11/04/21 Unknown mg-copper 1 rj-hqyzrd-ynqoyw capsule (PreserVision AREDS-2) vitamin B complex 1 cap PO DAILY 11/04/21 11/04/21 Unknown Active Medications Generic Name Dose Route Start Last Admin Trade Name Yadi PRN Reason Stop Dose Admin Morphine Sulfate 4 mg 11/04/21 09:37 11/04/21 09:44 Morphine Sulfate 4 Mg/Ml 1 Ml Carp\\Vial IV 11/18/21 09:36 4 mg Q1H PRN Administration Severe Pain (Rating 7,8,9,10) Past Medical History Medical History Anxiety Atrial fibrillation PLAVIX STOPPED BY DENISE Compression fracture of lumbar vertebra Depression Fatigue Gastroparesis GERD (gastroesophageal reflux disease) Hiatal hernia History of colon polyps History of gastric ulcer Hypercalcemia Hypertension Hypothyroidism Macular degeneration of right eye Non-STEMI (non-ST elevated myocardial infarction) 04/2018--follows with Dr. Rehman Osteoarthritis Osteoporosis Parkinson disease Spinal stenosis Transient ischemic attack (TIA) "MANY MANY YRS AGO"F/U DR RIDER?[facility] Past Family History Family History Sister Family hx of colon cancer Other No family history of adverse response to anesthesia Past Surgical History Surgical History History of cholecystectomy History of colonoscopy History of dilatation and curettage History of esophagogastroduodenoscopy (EGD) History of lumbar surgery NO METAL History of phacoemulsification of cataract of both eyes with intraocular lens implantation History of thyroidectomy benign growth History of tooth extraction Social History Smoking Status: Never smoker Hx Alcohol Use: No Hx Substance Use: No substance use type: does not use Physical Exam Vital Signs Last Vital Signs Temp 98.6 F 11/04/21 11:30 Pulse 67 11/04/21 11:30 Resp 19 11/04/21 11:30 BP 175/75 H 11/04/21 11:30 Pulse Ox 99 11/04/21 11:30 O2 Del Method 11/04/21 11:30 O2 Flow Rate 2 11/04/21 11:30 Testing Laboratory Results 11/04/21 08:23 11/04/21 08:23 PT 11.7 Seconds (9.0-12.0) 11/04/21 08:23 INR 1.1 (0.9-1.1) 11/04/21 08:23 APTT 33.3 Seconds (21.0-31.0) H 11/04/21 08:23 Urine Color Yellow 11/04/21 08:31 Urine Appearance Clear (Clear) 11/04/21 08:31 Urine pH 8.0 (4.5-7.5) H 11/04/21 08:31 Ur Specific Currie 1.010 (1.000-1.030) 11/04/21 08:31 Urine Protein 1+ (Negative) H 11/04/21 08:31 Urine Glucose (UA) Negative (Negative) 11/04/21 08:31 Urine Ketones Negative (Negative) 11/04/21 08:31 Urine Nitrite Negative (Negative) 11/04/21 08:31 Ur Leukocyte Esterase Negative (Negative) 11/04/21 08:31 Urine WBC (Auto) 1-5 /hpf (0-5) 11/04/21 08:31 Urine RBC (Auto) 0-4 /hpf (0-4) 11/04/21 08:31 U Hyaline Cast (Auto) 0 /lpf (0-5) 11/04/21 08:31 U Epithel Cells (Auto) 20-30 /lpf (0-5) H 11/04/21 08:31 Urine Bacteria (Auto) Negative (Negative) 11/04/21 08:31 11/04/21 08:27 POC Glucose (other) 122 H Electrocardiogram Date: 11/04/21 Normal sinus rhythm, rate 67 bpm Possible Left atrial enlargement Right bundle branch block Abnormal ECG When compared with ECG of 29-JUN-2021 02:01, QRS duration has increased Confirmed by Thom Briceno ([id number]) on 11/04/2021 11:30:57 AM Chest X-Ray Date: 11/04/21 Findings: + NAD Echocardiogram Date: 05/04/18 Normal LV chamber with mild concentric LVH Moderately reduced LV systolic function, EF 35-40% Mod to severe hypokinesis of the anteroseptal, anterior, anterolateral and apical ricardo, otherwise normal wall motion Grade 2 diastolic dysfunction AV sclerosis mild, without significant AV stenosis. Mild AR
[2021-11-04] MEDS ORDERED: ALUMINUM/MAGNESIUM SUSP 30 ML UDC PO PRN (12:24)
[2021-11-04] MEDS ORDERED: ONDANSETRON INJ 2 MG/ML 2 ML VIAL IV PRN (12:24)
[2021-11-04] MEDS ORDERED: POLYETHYLENE (MIRALAX) 17 GM PACK PO PRN (12:24)
[2021-11-04] MEDS ORDERED: NALOXONE HCL 0.4 MG/1 ML VIAL/CARP IV PRN (12:24)
[2021-11-04] MEDS ORDERED: bisacodyL 10 MG SUPP PR PRN (12:24)
[2021-11-04] MEDS ORDERED: MAGNESIUM HYDROXIDE SUSP 30 ML UDC PO PRN (12:24)
[2021-11-04] MEDS ORDERED: MELATONIN 3 MG TAB PO PRN (12:51)
[2021-11-04] MEDS: ACETAMINOPHEN 325 MG TAB PO PRN (12:57)
[2021-11-04] MEDS: ACETAMINOPHEN 500 MG TAB PO SCH ×2 (15:26→18:33)
[2021-11-04] MEDS: lisinopril 20 MG TAB PO SCH (15:27)
[2021-11-04] MEDS: traMADol HCL 50 MG TABLET PO PRN (21:42)
[2021-11-04] MEDS: DOCUSATE SODIUM/SENNA 50/8.6MG TAB PO SCH (21:43)
[2021-11-04] MEDS: MIRTAZAPINE TAB 15 MG TAB PO SCH (21:43)
[2021-11-05] MEDS: ACETAMINOPHEN 500 MG TAB PO SCH ×4 (01:44→19:30)
[2021-11-05] MEDS: MoRPHine SULFATE 4 MG/ML 1 ML CARP\\VIAL IV PRN ×4 (01:44→20:35)
[2021-11-05] MEDS: traMADol HCL 50 MG TABLET PO PRN ×2 (03:40→10:22)
[2021-11-05] MEDS: LEVOTHYROXINE SODIUM 88 MCG TABLET PO SCH (05:57)
[2021-11-05] MEDS ORDERED: VANCOMYCIN HCL 750 MG in SODIUM CHLORIDE 0.9% 250 ML IV SCH (06:00)
[2021-11-05 07:36] LABS: Hematocrit (blood only) 41.9 % (34.1-44.9); Mean Corpuscular Volume 90.3 fL (80.0-100.0); Mean Platelet Volume 10.9 fL (9.4-12.3); Platelet Count 117 K/uL (130-400); RDW Coefficient of Variation 13.9 % (11.5-14.5); RDW Standard Deviation 45.7 fL (36.4-46.3); Red Blood Count 4.64 M/uL (3.93-5.22); White Blood Count 10.02 K/ul (4.8-10.8)
[2021-11-05 07:37] LABS: Basophils # (auto) 0.09 K/uL (0-0.2); Basophils % (auto) 0.9 %; Eosinophils # (auto) 0.29 K/uL (0-0.50); Eosinophils % (auto) 2.9 %; Immature Granulocytes # (auto) 0.05 K/uL (0.00-0.02); Immature Granulocytes % (auto) 0.5 %; Lymphocytes # (auto) 1.62 K/uL (1.2-3.4); Lymphocytes % (auto) 16.2 %; Monocytes % (auto) 26.9 %; Neutrophils # (auto) 5.27 K/uL (1.4-6.5); Neutrophils % (auto) 52.6 %
[2021-11-05 07:43] LABS: Estimated Average Glucose 114 mg/dl; Hemoglobin A1C 5.6 % (4.5-5.6)
[2021-11-05 07:50] LABS: Albumin Globulin Ratio 1.7 (0.9-2); Albumin Level 3.5 gm/dl (3.4-5.0); Bilirubin,Total 1.2 mg/dl (0.2-1.0); Calcium 7.9 mg/dl (8.5-10.1); Creatinine Clr Calc Pharmacy 40.4 ml/min; Est GFR (African American) 76.2 ml/min; Est GFR (Non-African American) 65.7 ml/min; Globulin 2.1 gm/dl (2.5-4.0); Magnesium 2.2 mg/dl (1.7-2.4); Potassium 4.2 mmol/L (3.5-5.1); Total Protein 5.6 gm/dl (6.0-8.3)
[2021-11-05] MEDS: METOPROLOL SUCC 25MG EXT REL TAB PO SCH (10:23)
[2021-11-05] MEDS: ESCITALOPRAM OXALATE 10 MG TAB PO SCH (10:24)
[2021-11-05] MEDS: lisinopril 20 MG TAB PO SCH (10:24)
[2021-11-05] MEDS: METOPROLOL SUCC 50MG EXT REL TAB PO SCH (10:25)
--- NOTE | 2021-11-05 11:40 | Ultrasound Report ---
ABDOMINAL ULTRASOUND, RIGHT UPPER QUADRANT HISTORY: Elevated LFTs.. COMPARISON: Abdomen and pelvis CT 11/04/2021. FINDINGS: Pancreas: The pancreas demonstrates a normal echotexture. Liver: No hepatic masses. Mild intrahepatic bile duct dilatation remains unchanged. Gallbladder: The gallbladder is surgically absent. CBD: 4 mm. Right kidney: No hydronephrosis. IMPRESSION: 1. Prior cholecystectomy. 2. No change in the mild intrahepatic bile duct dilatation. This is nonspecific but likely due to the patient's postcholecystectomy state. 3. Normal caliber common bile duct. ACT 112: Negative or not required by law. Electronically signed by: Yeison Montoya M.D. 11/05/2021 11:39 AM
[2021-11-05] MEDS: CEROVITE ADV FORMULA TAB PO SCH (11:42)
[2021-11-05] MEDS: VITAMIN B COMPLEX TAB PO SCH (11:42)
--- NOTE | 2021-11-05 12:54 | History & Physical Bridge Note ---
Date of Service November 05, 2021 History & Physical Bridge Note I have examined the patient, reviewed the History & Physical and in the interval since the performance of the History & Physical I have noted the following changes of clinical significance: no changes noted
[2021-11-05] MEDS ORDERED: BUPIVACAINE 0.5 % 5 MG/1 ML PF 10ML VIAL ONE (13:14)
[2021-11-05] MEDS ORDERED: hydrALAZINE HCL 20 MG/ML VIAL IV PRN (14:04)
[2021-11-05] MEDS ORDERED: DEXAMETHASONE SOD INJ 4 MG/ML VIAL ONE (14:06)
[2021-11-05] MEDS ORDERED: ONDANSETRON INJ 2 MG/ML 2 ML VIAL ONE (14:06)
[2021-11-05] MEDS ORDERED: LIDOCAINE 2% 2 ML VIAL/AMP(20MG/ML) INFIL ONE (14:06)
[2021-11-05] MEDS ORDERED: PROPOFOL IV EMULSION 10 MG/ML 20 ML VIAL IV ONE (14:06)
--- NOTE | 2021-11-05 14:09 | Hospitalist Progress Note ---
Date of Service November 05, 2021 Assessment & Plan (1) Intertrochanteric fracture of left femur: (2) PAF (paroxysmal atrial fibrillation): (3) Chronic heart failure with preserved ejection fraction (HFpEF): (4) Hypertension: Plan 86-year-old female who has significant past medical history of PAF anticoagulated on elqiuis, chronic HFpEF, hypothyroidism RBBB, HTN, HLD, history of chronic gastroparesis and constipation, GERD,osteoporosis, history of TIA, macular degeneration, neuroleptic induced parkinsonism, depression and anxiety who presents to ED after standing fall prior to arrival. She is being managed for the following: #. Intertrochanteric fracture of left femur, likely age-related osteoporotic fracture #. Mechanical fall Patient presented with a fall on left side, mechanical nature. Admitting labs fairly WNL. MRSA screen negative. Last dose of Eliquis was 11/03 at 8 PM, currently on hold for surgery. Admitting imaging: CT AP/C-spine CT/CXR/femur XR/head CT/pelvic XR: Positive for intertrochanteric fracture of the left femoral neck with mild fracture lateral angulation and for osteopenia in C-spine CT. Otherwise no acute findings. 07/07/2021 echo with EF of 60 to 65%, mild aortic regurgitation, grade 1 saurav stolic dysfunction. Patient with allergy to penicillin, hives; discussed with pharmacist and does not appear patient has had cephalosporins in house, patient's outpatient chart in [facility] was reviewed as well Preoperative antibiotics with IV Vanco received. Plan for surgery today DVT prophylaxis/PT/OT/pain management per orthopedics Pain management, nausea control, caution with BP meds in perioperative period. Should be able to resume diet when more awake after surgery. #. Elevated LFT AST/ALT/ALP elevated with fairly upper normal total bilirubin Unclear etiology, will continue to trend, acute hepatitis panel sent, patient with no right upper quadrant pain. 11/05 US liver: Prior cholecystectomy, no change in intrahepatic bile duct dilatation. Normal caliber CBD. Trend LFT and PT/INR, if worsening consider GI. #. Other chronic medical conditions: Chronic HFpEF, PAF, HTN Continue with lisinopril and metoprolol, caution with BP meds during perioperative status. Eliquis on hold, resume when cleared per orthopedics. #. Hypothyroidism, osteoporosis Vitamin D level 30.1, low normal Add vitamin D tablets, continue other home meds. Dispo: Med telemetry DNR/DNI PCP: Pelon Admission and Anticipated Discharge Date Admission Date: November 04, 2021 Subjective Patient seen and examined at bedside as a follow-up of intertrochanteric fracture of left femur. Patient was lying in bed, on 2 L nasal cannula oxygen, NAD, reports pain under control as long as she does not move, denies new acute events overnight. Patient is n.p.o. for orthopedic procedure today. Patient denies headache/dizziness/fever/sore throat/cough/chest pain/palpitations/belly pain/other review of symptoms. Physical Exam Physical Exam: GENERAL: Alert and oriented x3. NAD, on 2L NC O2. HEENT: No pallor, no icterus. Pupils equal, round and reactive to light. Oral mucosa moist. NECK: No JVD, no neck masses. HEART: S1 and S2 heard. Regular rate and rhythm. No murmur, no gallop. RESPIRATORY SYSTEM: Normal AP diameter. No accessory muscle use. No wheezing, no crackles. ABDOMEN: Soft, bowel sounds present, nontender, no distention. CENTRAL NERVOUS SYSTEM: No facial droop. Speech is clear. Obeys simple commands. Moves extremities. EXTREMITIES: Trace BLE edema, no erythema seen. LLE distal NV status wnl. Pain w/ LLE manipulation. Results & Data Results & Data ([facility]) Vital Signs (Past 12 Hours) Vital Signs Temp Pulse Pulse Pulse Resp BP BP 11/05/21 11:00 36.4 C L 68 18 200/80 H 11/05/21 10:49 11/05/21 07:35 36.4 C L 68 18 148/76 H 11/05/21 07:34 63 11/05/21 03:00 36.4 C L 64 20 151/49 H Pulse Ox O2 Del Method O2 Flow Rate 11/05/21 11:00 99 Nasal Cannula 2 11/05/21 10:49 Nasal Cannula 2 11/05/21 07:35 99 Nasal Cannula 2 11/05/21 07:34 11/05/21 03:00 98 Nasal Cannula 2
[2021-11-05] MEDS ORDERED: fentaNYL citrate 100 MCG/2 ML VIAL ONE ×2 (14:10→16:16)
[2021-11-05] MEDS ORDERED: BUPIVACAINE 0.5 % 5 MG/1 ML MPF 30ML VIAL ONE (15:01)
[2021-11-05] MEDS ORDERED: ePHEDrine sulfate 50 MG/ML AMP IV PRN (15:23)
[2021-11-05] MEDS ORDERED: ATROPINE SULFATE 0.1 MG/ML 10ML SYR IV PRN (15:23)
[2021-11-05] MEDS ORDERED: ONDANSETRON INJ 2 MG/ML 2 ML VIAL IV PRN (15:23)
[2021-11-05] MEDS ORDERED: fentaNYL citrate 100 MCG/2 ML VIAL IV PRN (15:23)
[2021-11-05] MEDS ORDERED: PHENYLEPHRINE 100MCG/ML 5ML SYR ONE (15:47)
[2021-11-05] MEDS ORDERED: ePHEDrine sulfate 50 MG/ML AMP ONE (15:47)
[2021-11-05] MEDS: CHOLECALCIFEROL 5,000 UNITS 125 MCG TAB PO SCH (17:36)
--- NOTE | 2021-11-05 17:39 | Post Operative Brief Note ---
Immediate Post Op Note v1 Date of Surgery November 05, 2021 Pre & Post Diagnosis Operation Date: 11/05/21 07:00 Pre-Op Diagnosis: Intertrochanteric fracture of left femur Post-Op Diagnosis: Intertrochanteric fracture of left femur I identified the patient and participated in the time-out.: Yes Procedure Operation Date: 11/05/21 07:00 Actual Procedures p Internal fixation of left hip with trochanteric femoral nail(Left) - Sravan Britton MD Surgeon Sravan Britton MD Blister Packaging Machine Operator Julius HARRELL Estimated Blood Loss 100 Findings Consistent with Post-Op Diagnosis Drains Brown Catheter Anesthesia Type General Complications none Disposition Disposition: Recovery Room Overlapping Procedure I was immediately available: during the entire case.
--- NOTE | 2021-11-05 17:42 | Fluoroscopy Report ---
FL femur LT 2V CLINICAL HISTORY: LEFT FEMUR/TROCHNAIL IM MARLENE TECHNIQUE: 4 views were obtained with the C-arm in the OR with the above procedure. Total fluoroscopy time was 140 seconds. Total skin dose was 22.3 mGy. Comparison: None available at the time of this dictation. FINDINGS/IMPRESSION: Intraoperative images were obtained of intramedullary marlene and trochanteric nail placement. Please correlate with intraoperative fluoroscopy and operative report. ACT 112: Negative or not required by law. Electronically signed by: Cortez Pérez M.D. 11/05/2021 5:41 PM
--- NOTE | 2021-11-05 17:54 | Operative Report ---
Post Operative Report Pre & Post Diagnosis Operation Date: 11/05/21 07:00 Pre-Op Diagnosis: Intertrochanteric fracture of left femur Post-Op Diagnosis: Intertrochanteric fracture of left femur I identified the patient and participated in the time-out.: Yes Procedure Operation Date: 11/05/21 07:00 Actual Procedures p Internal fixation of left hip fracture with trochanteric femoral nail(Left) - Sravan Britton MD Surgeon Sravan Britton MD Social Work Case Manager Julius HARRELL Estimated Blood Loss 100 Findings Consistent with Post-Op Diagnosis Hard bone in the femoral neck and head and the shaft but soft in the intertrochanteric region in the area of fracture Specimens None Anesthesia Type General Complications none Disposition Disposition: Recovery Room Indications 86-year-old female with macular degeneration and visual problems who stumbled and fell onto her left hip and sustained an intertrochanteric hip fracture with mild angulation and displacement some comminution in the area of the lesser trochanter. Description of Procedure Patient was taken to the operating room and anesthetized under general anesthesia due to being on Eliquis and this was held for a day and a half preop. IV vancomycin was started preop.. The patient was placed supine on a fracture table. The leg was placed into boot traction and the well leg was placed into a well-padded leg holding device in flexion and internal rotation. The reduction was performed by abducting the hip placing longitudinal traction in the external rotated position then internally rotation after traction was placed and then adducting the hip. A near anatomic reduction was obtained. Reduction was anatomic on lateral view, AP view femoral neck shaft angle appeared to be around 145 degrees. The hip was sterilely prepped and draped in usual fashion using ChloraPrep. Fluoroscopy was used throughout the case to assist in the procedure. A lateral incision was made over the hip. The skin was incised sharply. The subcutaneous fat was divided down to the fascia. The fascia was divided longitudinally and the gluteus medius was split with a Coleman elevator enough to identify the tip of the greater trochanter. A guidewire was placed under fluoroscopic guidance and then the drill was used to open up the canal. Placed in the guidewire and and the drill demonstrated very soft bone in the greater trochanteric area. She had excellent thick cortexes in the isthmus and the shaft and hard bone in the neck and head areas which were identified when pins and drilling were performed in those areas. We chose a 10 millimeter bill. The insertion device was used to insert the bill. I was advanced in the bill I was getting some tightness and it was not advancing typically although radiographically appeared to be in good position and I felt to be safe for her to pass reamer down due to her hard cortical bone in the isthmus. The implant was removed and a guidewire was placed and verified under fluoroscopic C arm visualization on AP and lateral films to be in appropriate position within the canal and then the reamers were passed up to a 11.5 mm reamer through the isthmus. The bill was then placed back down and impacted into appropriate position. The second incision was made for the helical blade. The guide was placed and the guidewire was advanced under fluoroscopic guidance into the femoral neck and head. Adjustments were made until we had the guidewire placement in the appropriate position. These were done under fluoroscopic evaluation. The guidewire placement was in the lower third on the AP view and centrally positioned on the lateral view in good position. The length of the helical blade was measured.. The reamers were used and then the 85 x 11 mm titanium helical blade was impacted into the neck and head fragment. The bone quality was very hard with excellent fixation. The proximal locking screw was tightened. Another small incision was made and the guide for the distal locking screw was advanced to the bone and the drill used and the measurement taken. A 36 millimeter locking screws then placed with good fixation. It was noted that the bone of the cortex was also extremely hard. Fluoroscopy views were obtained to document reduction AP and lateral views. All wounds were irrigated. The fascia was closed with interrupted #1 Vicryl sutures. The subcutaneous tissues were closed with 2-0 Vicryl sutures. The skin was closed with brendan and sterile dressings were applied. The patient tolerated the procedure well. My physician assistant executive housekeeper Julius HARRELL participated as pharmacy assistant and was integral part in all aspects of the procedure throughout the procedure including patient positioning, prepping and draping, soft tissue retraction and wound closure and will participate in the postoperative care of the patient. I attest to the content of the Intraoperative Record and any orders documented therein. Any exceptions are noted below.
--- NOTE | 2021-11-05 18:37 | Anesthesiology Progress Note ---
Date of Service November 05, 2021 Anesthesia Post Procedure Vital Signs Vital Signs: Temp Pulse Pulse Pulse Resp BP BP 11/05/21 18:25 74 14 170/78 H 11/05/21 18:15 75 12 172/89 H 11/05/21 18:05 76 12 175/67 H 11/05/21 17:57 36.9 C 76 20 185/62 H 11/05/21 15:55 70 11/05/21 14:55 36.4 C L 73 18 168/84 H 11/05/21 11:00 36.4 C L 68 18 200/80 H 11/05/21 10:49 11/05/21 07:35 36.4 C L 68 18 148/76 H 11/05/21 07:34 63 11/05/21 03:00 36.4 C L 64 20 151/49 H 11/05/21 01:26 11/05/21 00:00 60 11/04/21 22:00 36.6 C 61 20 169/68 H 11/04/21 19:00 36.8 C 60 20 157/73 H Pulse Ox O2 Del Method O2 Flow Rate 11/05/21 18:25 96 Nasal Cannula 2 11/05/21 18:15 96 Nasal Cannula 2 11/05/21 18:05 95 Nasal Cannula 2 11/05/21 17:57 99 Nasal Cannula 2 11/05/21 15:55 11/05/21 14:55 100 Nasal Cannula 2 11/05/21 11:00 99 Nasal Cannula 2 11/05/21 10:49 Nasal Cannula 2 11/05/21 07:35 99 Nasal Cannula 2 11/05/21 07:34 11/05/21 03:00 98 Nasal Cannula 2 11/05/21 01:26 Nasal Cannula 2 11/05/21 00:00 11/04/21 22:00 100 Nasal Cannula 2 11/04/21 19:00 98 Nasal Cannula 2 Pain Intensity Left Hip: Pain Intensity: 6 Transfer of Care Handoff Completed per policy Notes Mental Status: alert / awake / arousable and participated in evaluation Patient Amnestic to Procedure: Yes Nausea / Vomiting: adequately controlled Pain: adequately controlled Airway Patency, RR, SpO2: stable & adequate BP & HR: stable & adequate Hydration State: stable & adequate Anesthetic Complications: no major complications apparent and Pt Satisfied with anesthetic care
[2021-11-05] MEDS: SODIUM CHLORIDE 0.9% 1000ML 1,000 ML IV SCH (19:30)
[2021-11-05] MEDS: DOCUSATE SODIUM/SENNA 50/8.6MG TAB PO SCH (20:33)
[2021-11-05] MEDS: MIRTAZAPINE TAB 15 MG TAB PO SCH (20:34)
[2021-11-06] MEDS: ACETAMINOPHEN 500 MG TAB PO SCH ×4 (00:54→18:32)
[2021-11-06] MEDS: LEVOTHYROXINE SODIUM 88 MCG TABLET PO SCH (05:58)
[2021-11-06 06:27] LABS: INR 1.2 (0.9-1.1)
[2021-11-06 06:45] LABS: Basophils # (auto) 0.05 K/uL (0-0.2); Basophils % (auto) 0.4 %; Eosinophils # (auto) 0.02 K/uL (0-0.50); Eosinophils % (auto) 0.2 %; Hematocrit (blood only) 33.7 % (34.1-44.9); Hemoglobin 10.3 g/dl (12.0-16.0); Immature Granulocytes # (auto) 0.07 K/uL (0.00-0.02); Immature Granulocytes % (auto) 0.5 %; Lymphocytes # (auto) 1.48 K/uL (1.2-3.4); Lymphocytes % (auto) 11.1 %; Mean Corpuscular Hemoglobin 28.1 pg (25.0-34.0); Mean Corpuscular Hgb Conc 30.6 g/dL (32.0-36.0); Mean Corpuscular Volume 92.1 fL (80.0-100.0); Mean Platelet Volume 11.2 fL (9.4-12.3); Monocytes % (auto) 27.8 %; Neutrophils # (auto) 7.98 K/uL (1.4-6.5); Platelet Count 138 K/uL (130-400); RDW Coefficient of Variation 13.9 % (11.5-14.5); Red Blood Count 3.66 M/uL (3.93-5.22)
[2021-11-06 06:51] LABS: Albumin Globulin Ratio 1.6 (0.9-2); Albumin Level 2.8 gm/dl (3.4-5.0); BUN Creatinine Ratio 28.2 (10-20); Bilirubin,Total 0.8 mg/dl (0.2-1.0); Calcium 7.1 mg/dl (8.5-10.1); Creatinine Clr Calc Pharmacy 28.3 ml/min; Est GFR (African American) 49.6 ml/min; Est GFR (Non-African American) 42.8 ml/min; Globulin 1.8 gm/dl (2.5-4.0); Phosphorus 4.8 mg/dl (2.5-4.9); Total Protein 4.6 gm/dl (6.0-8.3)
[2021-11-06] MEDS: CEROVITE ADV FORMULA TAB PO SCH (08:02)
[2021-11-06] MEDS: SODIUM CHLORIDE 0.9% 1000ML 1,000 ML IV SCH (08:02)
[2021-11-06] MEDS: CHOLECALCIFEROL 5,000 UNITS 125 MCG TAB PO SCH (08:02)
[2021-11-06] MEDS: VITAMIN B COMPLEX TAB PO SCH (08:03)
[2021-11-06] MEDS: METOPROLOL SUCC 25MG EXT REL TAB PO SCH (08:03)
[2021-11-06] MEDS: METOPROLOL SUCC 50MG EXT REL TAB PO SCH (08:03)
[2021-11-06] MEDS: lisinopril 20 MG TAB PO SCH (08:03)
[2021-11-06] MEDS: ESCITALOPRAM OXALATE 10 MG TAB PO SCH (08:03)
[2021-11-06 08:21] LABS: HBSAG NON-REACTIVE (NON-REACTIVE); Hepatitis A Antibody IgM NON-REACTIVE (NON-REACTIVE); Hepatitis B Core Antibody IgM NON-REACTIVE (NON-REACTIVE)
[2021-11-06] MEDS: traMADol HCL 50 MG TABLET PO PRN (10:57)
--- NOTE | 2021-11-06 13:31 | Orthopedic Progress Note ---
Date of Service November 06, 2021 Assessment & Plan (1) Intertrochanteric fracture of left femur: Plan: Postop day 1 status post left TFN PT/OT protocols. Toe-touch weightbearing left lower extremity. DVT prophylaxis-GILLIAN León. Will discuss with hospitalist service about use of enoxaparin. Pain management as written. Admission and Anticipated Discharge Date Admission Date: November 04, 2021 Subjective Postop day 1 Patient sitting up in chair at the bedside. No complaints today. Patient is very conversant. Physical Exam Physical Exam: Dressings are clean, dry, and intact. Thigh with mild swelling but nontender. Calves are soft and nontender. Neurovascular is intact. Toes are mobile. Results & Data ([facility]) Vital Signs (Past 12 Hours) Vital Signs Temp Pulse Pulse Resp BP Pulse Ox O2 Del Method 11/06/21 13:13 68 11/06/21 12:00 36.6 C 74 16 110/60 90 Room Air 11/06/21 07:59 36.1 C L 90 16 120/68 96 Room Air 11/06/21 03:22 37.0 C 74 18 104/63 99 Nasal Cannula O2 Flow Rate 11/06/21 13:13 11/06/21 12:00 11/06/21 07:59 11/06/21 03:22 2 Laboratory Results Laboratory Results WBC 13.30 K/ul (4.8-10.8) H 11/06/21 05:44 RBC 3.66 M/uL (3.93-5.22) L 11/06/21 05:44 Hgb 10.3 g/dl (12.0-16.0) L 11/06/21 05:44 POC Hgb 15.3 g/dl (12.0-16.0) 11/04/21 08:27 Hct 33.7 % (34.1-44.9) L 11/06/21 05:44 POC Hct 45 % (37-47) 11/04/21 08:27 MCV 92.1 fL (80.0-100.0) 11/06/21 05:44 MCH 28.1 pg (25.0-34.0) 11/06/21 05:44 MCHC 30.6 g/dL (32.0-36.0) L 11/06/21 05:44 RDW Std Deviation 47.0 fL (36.4-46.3) H 11/06/21 05:44 RDW Coeff of Constantine 13.9 % (11.5-14.5) 11/06/21 05:44 Plt Count 138 K/uL (130-400) 11/06/21 05:44 MPV 11.2 fL (9.4-12.3) 11/06/21 05:44 Immature Gran % (Auto) 0.5 % 11/06/21 05:44 Neut % (Auto) 60.0 % 11/06/21 05:44 Lymph % (Auto) 11.1 % 11/06/21 05:44 [place] % (Auto) 27.8 % 11/06/21 05:44 Eos % (Auto) 0.2 % 11/06/21 05:44 Baso % (Auto) 0.4 % 11/06/21 05:44 Neut # (Auto) 7.98 K/uL (1.4-6.5) H 11/06/21 05:44 Lymph # (Auto) 1.48 K/uL (1.2-3.4) 11/06/21 05:44 [place] # (Auto) 3.70 K/uL (0.24-0.82) H 11/06/21 05:44 Eos # (Auto) 0.02 K/uL (0-0.50) 11/06/21 05:44 Baso # (Auto) 0.05 K/uL (0-0.2) 11/06/21 05:44 Immature Gran # (Auto) 0.07 K/uL (0.00-0.02) H 11/06/21 05:44 Neutrophils % (Manual) 71 % 11/04/21 08:23 Lymphocytes % (Manual) 11 % 11/04/21 08:23 Monocytes % (Manual) 18 % 11/04/21 08:23 Basophils % (Manual) 1 % 11/04/21 08:23 Neutrophils # (Manual) 9.36 K/uL (1.4-6.5) H 11/04/21 08:23 Total Absolute Neuts 9.36 K/uL (1.4-6.5) H 11/04/21 08:23 Lymphocytes # (Manual) 1.45 K/uL (1.2-3.4) 11/04/21 08:23 Total Abs Lymphocytes 1.45 K/uL (1.2-3.4) 11/04/21 08:23 Monocytes # (Manual) 2.37 K/uL (0.24-0.82) H 11/04/21 08:23 Basophils # (Manual) 0.13 K/uL (0-0.2) 11/04/21 08:23 PT 13.0 Seconds (9.0-12.0) H 11/06/21 05:44 INR 1.2 (0.9-1.1) H 11/06/21 05:44 APTT 33.3 Seconds (21.0-31.0) H 11/04/21 08:23 PTT Ratio 1.2 11/04/21 08:23 POC Sodium 140 mmol/L (135-144) 11/04/21 08:27 Sodium 140 mmol/L (136-145) 11/06/21 05:44 POC Potassium 4.6 mmol/L (3.3-5.0) 11/04/21 08:27 Potassium 5.0 mmol/L (3.5-5.1) 11/06/21 05:44 POC Chloride 101 mmol/L (101-112) 11/04/21 08:27 Chloride 107 mmol/L (98-107) 11/06/21 05:44 Carbon Dioxide 28 mmol/L (21-32) 11/06/21 05:44 POC Total CO2 31 mmol/L (24-31) 11/04/21 08:27 Anion Gap 5 (3-11) 11/06/21 05:44 POC Anion Gap 14.0 mmol/L (16-25) L 11/04/21 08:27 POC BUN 18 mg/dl (7-18) 11/04/21 08:27 BUN 33 mg/dl (6-23) H 11/06/21 05:44 Creatinine 1.17 mg/dl (0.6-1.2) D 11/06/21 05:44 POC Creatinine 0.7 mg/dl (0.6-1.3) 11/04/21 08:27 Est Cr Clr Drug Dosing 28.3 ml/min 11/06/21 05:44 Est GFR ( Amer) 49.6 ml/min 11/06/21 05:44 Est GFR (Non-Af Amer) 42.8 ml/min 11/06/21 05:44 BUN/Creatinine Ratio 28.2 (10-20) H 11/06/21 05:44 Glucose 152 mg/dl (70-99(Fasting)) H 11/06/21 05:44 POC Glucose (other) 122 mg/dl (70-99) H 11/04/21 08:27 Estimat Average Glucose 114 mg/dl 11/05/21 06:30 Hemoglobin A1c 5.6 % (4.5-5.6) 11/05/21 06:30 Calcium 7.1 mg/dl (8.5-10.1) L 11/06/21 05:44 POC Ioniz Calcium Celena 1.08 mmol/l (1.12-1.32) L 11/04/21 08:27 Phosphorus 4.8 mg/dl (2.5-4.9) 11/06/21 05:44 Magnesium 2.0 mg/dl (1.7-2.4) 11/06/21 05:44 Total Bilirubin 0.8 mg/dl (0.2-1.0) 11/06/21 05:44 AST 53 U/L (13-39) H 11/06/21 05:44 ALT 102 U/L (7-52) H 11/06/21 05:44 Alkaline Phosphatase 154 U/L (34-104) H 11/06/21 05:44 Total Creatine Kinase 20 U/L (26-192) L 11/04/21 08:23 Total Protein 4.6 gm/dl (6.0-8.3) L D 11/06/21 05:44 Albumin 2.8 gm/dl (3.4-5.0) L 11/06/21 05:44 Globulin 1.8 gm/dl (2.5-4.0) L 11/06/21 05:44 Albumin/Globulin Ratio 1.6 (0.9-2) 11/06/21 05:44 25-OH Vitamin D Total 24.1 ng/ml (30-100) L 11/06/21 05:44 Urine Color Yellow 11/04/21 08:31 Urine Appearance Clear (Clear) 11/04/21 08:31 Urine pH 8.0 (4.5-7.5) H 11/04/21 08:31 Ur Specific [place] 1.010 (1.000-1.030) 11/04/21 08:31 Urine Protein 1+ (Negative) H 11/04/21 08:31 Urine Glucose (UA) Negative (Negative) 11/04/21 08:31 Urine Ketones Negative (Negative) 11/04/21 08:31 Urine Blood Negative (Negative) 11/04/21 08:31 Urine Nitrite Negative (Negative) 11/04/21 08:31 Urine Bilirubin Negative (Negative) 11/04/21 08:31 Urine Urobilinogen Negative (Negative) 11/04/21 08:31 Ur Leukocyte Esterase Negative (Negative) 11/04/21 08:31 Urine WBC (Auto) 1-5 /hpf (0-5) 11/04/21 08:31 Urine RBC (Auto) 0-4 /hpf (0-4) 11/04/21 08:31 U Hyaline Cast (Auto) 0 /lpf (0-5) 11/04/21 08:31 U Epithel Cells (Auto) 20-30 /lpf (0-5) H 11/04/21 08:31 Urine Bacteria (Auto) Negative (Negative) 11/04/21 08:31 Nasal Screen MRSA (PCR) Negative (Negative) 11/04/21 10:17 Hepatitis A IgM Ab NON-REACTIVE (NON-REACTIVE) 11/05/21 06:30 Hep Bs Antigen NON-REACTIVE (NON-REACTIVE) 11/05/21 06:30 Hep Bs Ag Confirmation TNP 11/05/21 06:30 Hep B Core IgM Ab NON-REACTIVE (NON-REACTIVE) 11/05/21 06:30 Hepatitis C Ab (EIA) NON-REACTIVE (NON-REACTIVE) 11/05/21 06:30 Hep C Ab Signal/Cutoff 0.01 (<1.00) 11/05/21 06:30 SARS-CoV-2, RNA, NAAT NEGATIVE (NEGATIVE) 11/04/21 09:42 Blood Type O Positive 11/04/21 12:36 Antibody Screen NEGATIVE 11/04/21 12:36 Impressions . Femur X-Ray 11/05/21 00:00 FL femur LT 2V CLINICAL HISTORY: LEFT FEMUR/TROCHNAIL IM MARLENE TECHNIQUE: 4 views were obtained with the C-arm in the OR with the above procedure. Total fluoroscopy time was 140 seconds. Total skin dose was 22.3 mGy. Comparison: None available at the time of this dictation. FINDINGS/IMPRESSION: Intraoperative images were obtained of intramedullary marlene and trochanteric nail placement. Please correlate with intraoperative fluoroscopy and operative report. ACT 112: Negative or not required by law. Electronically signed by: Cortez Pérez M.D. 11/05/2021 5:41 PM
[2021-11-06] MEDS ORDERED: ENOXAPARIN INJ 30 MG/0.3 ML SYR SQ SCH (14:00)
--- NOTE | 2021-11-06 18:01 | Hospitalist Progress Note ---
Date of Service November 06, 2021 Assessment & Plan (1) Intertrochanteric fracture of left femur: (2) PAF (paroxysmal atrial fibrillation): (3) Chronic heart failure with preserved ejection fraction (HFpEF): (4) Hypertension: Plan 86-year-old female who has significant past medical history of PAF anticoagulated on elqiuis, chronic HFpEF, hypothyroidism RBBB, HTN, HLD, history of chronic gastroparesis and constipation, GERD,osteoporosis, history of TIA, macular degeneration, neuroleptic induced parkinsonism, depression and anxiety who presents to ED after standing fall prior to arrival. She is being managed for the following: #. Intertrochanteric fracture of left femur, likely age-related osteoporotic fracture #. Mechanical fall #. Likely post Op acute blood loss anemia: Hb dropped dropped from admitting Hb, c/t monitor. Patient presented with a fall on left side, mechanical nature. Admitting labs fairly WNL. MRSA screen negative. Last dose of Eliquis was 11/03 at 8 PM, currently on hold for surgery. Admitting imaging: CT AP/C-spine CT/CXR/femur XR/head CT/pelvic XR: Positive for intertrochanteric fracture of the left femoral neck with mild fracture lateral angulation and for osteopenia in C-spine CT. Otherwise no acute findings. 07/07/2021 echo with EF of 60 to 65%, mild aortic regurgitation, grade 1 diastolic dysfunction. Patient with allergy to penicillin, hives; discussed with pharmacist and does not appear patient has had cephalosporins in house, patient's outpatient chart in [facility] was reviewed as well Preoperative antibiotics with IV Vanco received. s/p Left TFN 11/[address] Britton DVT prophylaxis/PT/OT/pain management per orthopedics Pain management, nausea control PT/OT #. Elevated LFT AST/ALT/ALP elevated with fairly upper normal total bilirubin Unclear etiology, will continue to trend, acute hepatitis panel sent/negative, patient with no right upper quadrant pain. 11/05 US liver: Prior cholecystectomy, no change in intrahepatic bile duct dilatation. Normal caliber CBD. Trend LFT, downtrending, repeat in AM #. Other chronic medical conditions: Chronic HFpEF, PAF, HTN Continue with lisinopril and metoprolol, caution with BP meds during perioperative status. Eliquis on hold, resume when cleared per orthopedics. #. Hypothyroidism, osteoporosis Vitamin D level 30.1, low normal Added vitamin D tablets, continue other home meds. Dispo: Med telemetry DNR/DNI PCP: Pelon Admission and Anticipated Discharge Date Admission Date: November 04, 2021 Subjective Patient seen and examined at bedside as a follow-up of intertrochanteric fracture of left femur. Patient was sitting up in chair, on RA, NAD, reports pain under control , denies new acute events overnight. Reports eating ok, moving gas but no bowel yet. Patient denies headache/dizziness/fever/sore throat/cough/chest pain/palpitations/belly pain/other review of symptoms. Physical Exam Physical Exam: GENERAL: Alert and oriented x3. NAD, on RA HEENT: No pallor, no icterus. Pupils equal, round and reactive to light. Oral mucosa moist. NECK: No JVD, no neck masses. HEART: S1 and S2 heard. Regular rate and rhythm. No murmur, no gallop. RESPIRATORY SYSTEM: Normal AP diameter. No accessory muscle use. No wheezing, no crackles. ABDOMEN: Soft, bowel sounds present, nontender, no distention. CENTRAL NERVOUS SYSTEM: No facial droop. Speech is clear. Obeys simple commands. Moves extremities. EXTREMITIES: Trace BLE edema, no erythema seen. LLE distal NV status wnl. Pain w/ LLE manipulation. Left hip dressing/clean/wo soakage Results & Data Results & Data ([facility]) Vital Signs (Past 12 Hours) Vital Signs Temp Pulse Pulse Resp BP Pulse Ox O2 Del Method 11/06/21 16:30 69 11/06/21 15:45 36.6 C 72 18 160/53 H 98 Nasal Cannula 11/06/21 14:10 Room Air, Nasal Cannula 11/06/21 13:13 68 11/06/21 12:00 36.6 C 74 16 110/60 90 Room Air 11/06/21 07:59 36.1 C L 90 16 120/68 96 Room Air O2 Flow Rate 11/06/21 16:30 11/06/21 15:45 2 11/06/21 14:10 2 11/06/21 13:13 11/06/21 12:00 11/06/21 07:59
[2021-11-06] MEDS: DOCUSATE SODIUM/SENNA 50/8.6MG TAB PO SCH (20:14)
[2021-11-06] MEDS: MIRTAZAPINE TAB 15 MG TAB PO SCH (20:14)
[2021-11-07] MEDS: ACETAMINOPHEN 500 MG TAB PO SCH ×4 (02:22→18:05)
[2021-11-07] MEDS: LEVOTHYROXINE SODIUM 88 MCG TABLET PO SCH (05:50)
[2021-11-07 07:10] LABS: Hematocrit (blood only) 33.1 % (34.1-44.9); Hemoglobin 10.4 g/dl (12.0-16.0); Mean Corpuscular Hemoglobin 28.7 pg (25.0-34.0); Mean Corpuscular Hgb Conc 31.4 g/dL (32.0-36.0); Mean Corpuscular Volume 91.2 fL (80.0-100.0); Mean Platelet Volume 11.5 fL (9.4-12.3); Platelet Count 134 K/uL (130-400); RDW Standard Deviation 46.7 fL (36.4-46.3); Red Blood Count 3.63 M/uL (3.93-5.22)
[2021-11-07 07:20] LABS: Albumin Globulin Ratio 1.6 (0.9-2); Albumin Level 3.1 gm/dl (3.4-5.0); BUN Creatinine Ratio 39.8 (10-20); Bilirubin,Total 0.9 mg/dl (0.2-1.0); Calcium 7.5 mg/dl (8.5-10.1); Creatinine Clr Calc Pharmacy 30.7 ml/min; Est GFR (African American) 54.6 ml/min; Est GFR (Non-African American) 47.1 ml/min; INR 1.1 (0.9-1.1); Potassium 4.6 mmol/L (3.5-5.1); Prothrombin Time 11.6 Seconds (9.0-12.0); Total Protein 5.1 gm/dl (6.0-8.3)
[2021-11-07] MEDS: VITAMIN B COMPLEX TAB PO SCH (09:11)
[2021-11-07] MEDS: CEROVITE ADV FORMULA TAB PO SCH (09:11)
[2021-11-07] MEDS: APIXABAN 2.5 MG TAB PO SCH ×2 (09:11→20:19)
[2021-11-07] MEDS: ESCITALOPRAM OXALATE 10 MG TAB PO SCH (09:11)
[2021-11-07] MEDS: METOPROLOL SUCC 25MG EXT REL TAB PO SCH (09:11)
[2021-11-07] MEDS: METOPROLOL SUCC 50MG EXT REL TAB PO SCH (09:11)
[2021-11-07] MEDS: CHOLECALCIFEROL 5,000 UNITS 125 MCG TAB PO SCH (09:11)
[2021-11-07] MEDS: lisinopril 20 MG TAB PO SCH (09:11)
--- NOTE | 2021-11-07 10:35 | Orthopedic Progress Note ---
Date of Service November 07, 2021 Assessment & Plan (1) Intertrochanteric fracture of left femur: Plan: Postop day 2 status post left TFN PT/OT protocols. Toe-touch weightbearing left lower extremity. DVT prophylaxis-SCDs, GILLIAN hose, and Eliquis bid Pain management as written. DC planning-patient has been accepted to [facility]. Discharge as per medicine service. Orthopedics will sign off at this time. Discharge instructions have been placed in the chart. Please call with any questions. Admission and Anticipated Discharge Date Admission Date: November 04, 2021 Supervising Physician Co-Signing Physician Notes Patient seen and examined. Agree with JULIO CESAR Car's note as above. Pain is well controlled. Remain toe-touch weightbearing on the left leg. Plan for discharge to SNF. Follow-up with Dr. Britton in clinic 10-14 days after surgery. Subjective Postop day 2 She is lying in bed awake and alert. No complaints this morning. Pain is controlled. She states that she will be going to [facility] soon for her rehab. Physical Exam Physical Exam: Dressings are clean, dry, and intact. Thigh is soft and nontender. Calves are soft nontender. Neurovascular is intact. Toes are mobile. Results & Data ([facility]) Vital Signs (Past 12 Hours) Vital Signs Temp Pulse Pulse Resp BP Pulse Ox O2 Del Method 11/07/21 09:34 70 11/07/21 08:01 36.5 C 73 20 174/67 H 100 Nasal Cannula 11/07/21 04:00 36.8 C 66 18 161/62 H 98 Nasal Cannula 11/06/21 23:11 36.4 C L 69 18 111/56 L 100 Nasal Cannula 11/06/21 22:50 68 O2 Flow Rate 11/07/21 09:34 11/07/21 08:01 1 11/07/21 04:00 1 11/06/21 23:11 1 11/06/21 22:50
[2021-11-07] MEDS: traMADol HCL 50 MG TABLET PO PRN (12:15)
[2021-11-07] MEDS: ACETAMINOPHEN 325 MG TAB PO PRN (12:15)
--- NOTE | 2021-11-07 13:52 | XRay Report ---
XR hip LT min 2V CLINICAL HISTORY: Pain post PT session with audible pop COMPARISON STUDY: Left femur 11/05/2021. FINDINGS: The patient is status post recent internal fixation of a left femoral intertrochanteric fra cture with a proximal femoral intramedullary bill and interlocking femoral neck pin. The hardware appe ars intact. The slightly displaced fixated fracture appears unchanged in alignment. There are few sma ll adjacent bony fragments which are also unchanged. No additional fractures identified within the le ft hip. The visualized pelvic bones are intact. Mild vascular calcifications are noted. Skin brendan and soft tissue gas consistent with postoperative change. IMPRESSION: Status post recent internal fixation of a left femoral intertrochanteric fracture with a femoral intramedullary bill and interlocking femoral neck pin. The hardware appears intact. The fixat ed fracture appears unchanged in alignment. No additional fractures identified. ACT 112: Negative or not required by law. Electronically signed by: Yeison Montoya M.D. 11/07/2021 1:51 PM
--- NOTE | 2021-11-07 16:45 | Hospitalist Progress Note ---
Date of Service November 07, 2021 Assessment & Plan (1) Intertrochanteric fracture of left femur: (2) PAF (paroxysmal atrial fibrillation): (3) Chronic heart failure with preserved ejection fraction (HFpEF): (4) Hypertension: Plan 86-year-old female who has significant past medical history of PAF anticoagulated on elqiuis, chronic HFpEF, hypothyroidism RBBB, HTN, HLD, history of chronic gastroparesis and constipation, GERD,osteoporosis, history of TIA, macular degeneration, neuroleptic induced parkinsonism, depression and anxiety who presents to ED after standing fall prior to arrival. She is being managed for the following: #. Intertrochanteric fracture of left femur, likely age-related osteoporotic fracture #. Mechanical fall #. Likely post Op acute blood loss anemia: Hb dropped dropped from admitting Hb, c/t monitor. Patient presented with a fall on left side, mechanical nature. Admitting labs fairly WNL. MRSA screen negative. Last dose of Eliquis was 11/03 at 8 PM, currently on hold for surgery. Admitting imaging: CT AP/C-spine CT/CXR/femur XR/head CT/pelvic XR: Positive for intertrochanteric fracture of the left femoral neck with mild fracture lateral angulation and for osteopenia in C-spine CT. Otherwise no acute findings. 07/07/2021 echo with EF of 60 to 65%, mild aortic regurgitation, grade 1 diastolic dysfunction. Patient with allergy to penicillin, hives; discussed with pharmacist and does not appear patient has had cephalosporins in house, patient's outpatient chart in [facility] was reviewed as well Preoperative antibiotics with IV Vanco received. s/p Left TFN 11/[address] Britton DVT prophylaxis/PT/OT/pain management per orthopedics Pain management, nausea control PT/OT #. Elevated LFT AST/ALT/ALP elevated with fairly upper normal total bilirubin Unclear etiology, acute hepatitis panel sent/negative, patient with no right upper quadrant pain. 11/05 US liver: Prior cholecystectomy, no change in intrahepatic bile duct dilatation. Normal caliber CBD. LFT downtrending, follow-up at 1 week upon discharge. #. Other chronic medical conditions: Chronic HFpEF, PAF, HTN Continue with lisinopril and metoprolol, caution with BP meds during perioperative status. Eliquis resumed 716 AM. #. Hypothyroidism, osteoporosis Vitamin D level 30.1, low normal Added vitamin D tablets, continue other home meds. Dispo: Med telemetry DNR/DNI PCP: Pelon Disposition: To [facility], pending transfer set up. Stable medically. Admission and Anticipated Discharge Date Admission Date: November 04, 2021 Subjective Patient seen and examined at bedside as a follow-up of intertrochanteric fracture of left femur. Patient was lying in bed, on RA, NAD, reports pain under control , denies new acute events overnight. Reports sleeping very well overnight. Reports eating ok, moving bowel. Patient denies headache/dizziness/fever/sore throat/cough/chest pain/palpitations/belly pain/other review of symptoms. During the early afternoon, patient had a popping sound x left hip during physical therapy, x-ray hip sent, no acute pathology. Patient now would like to be transported in bed to [facility]. Physical Exam Physical Exam: GENERAL: Alert and oriented x3. NAD, on RA HEENT: No pallor, no icterus. Pupils equal, round and reactive to light. Oral mucosa moist. NECK: No JVD, no neck masses. HEART: S1 and S2 heard. Regular rate and rhythm. No murmur, no gallop. RESPIRATORY SYSTEM: Normal AP diameter. No accessory muscle use. No wheezing, no crackles. ABDOMEN: Soft, bowel sounds present, nontender, no distention. CENTRAL NERVOUS SYSTEM: No facial droop. Speech is clear. Obeys simple commands. Moves extremities. EXTREMITIES: Trace BLE edema, no erythema seen. LLE distal NV status wnl. Left hip dressing/clean/wo soakage Results & Data Results & Data ([facility]) Vital Signs (Past 12 Hours) Vital Signs Temp Pulse Pulse Resp BP Pulse Ox O2 Del Method 11/07/21 15:32 36.9 C 88 20 145/71 H 93 Room Air 11/07/21 14:53 85 11/07/21 12:44 Room Air 11/07/21 11:30 36.6 C 71 20 169/65 H 100 Nasal Cannula 11/07/21 09:34 70 11/07/21 08:01 36.5 C 73 20 174/67 H 100 Nasal Cannula O2 Flow Rate 11/07/21 15:32 11/07/21 14:53 11/07/21 12:44 11/07/21 11:30 1 11/07/21 09:34 11/07/21 08:01 1
[2021-11-07] MEDS: DOCUSATE SODIUM/SENNA 50/8.6MG TAB PO SCH (20:19)
[2021-11-07] MEDS: MIRTAZAPINE TAB 15 MG TAB PO SCH (20:19)
[2021-11-07] MEDS ORDERED: MELATONIN 3 MG TAB PO SCH (21:00)
[2021-11-08] MEDS: ACETAMINOPHEN 500 MG TAB PO SCH ×3 (01:17→11:30)
[2021-11-08] MEDS: LEVOTHYROXINE SODIUM 88 MCG TABLET PO SCH (05:51)
[2021-11-08 07:18] LABS: Hematocrit (blood only) 30.9 % (34.1-44.9); Hemoglobin 9.7 g/dl (12.0-16.0); Mean Corpuscular Hemoglobin 28.7 pg (25.0-34.0); Mean Corpuscular Hgb Conc 31.4 g/dL (32.0-36.0); Mean Corpuscular Volume 91.4 fL (80.0-100.0); Mean Platelet Volume 11.4 fL (9.4-12.3); Platelet Count 152 K/uL (130-400); RDW Coefficient of Variation 13.9 % (11.5-14.5); RDW Standard Deviation 46.8 fL (36.4-46.3); Red Blood Count 3.38 M/uL (3.93-5.22); White Blood Count 10.91 K/ul (4.8-10.8)
[2021-11-08 08:28] LABS: BUN Creatinine Ratio 40.6 (10-20); Calcium 7.8 mg/dl (8.5-10.1); Est GFR (African American) 92.6 ml/min; Est GFR (Non-African American) 79.9 ml/min; Potassium 4.7 mmol/L (3.5-5.1)
[2021-11-08] MEDS: CEROVITE ADV FORMULA TAB PO SCH (09:12)
[2021-11-08] MEDS: ESCITALOPRAM OXALATE 10 MG TAB PO SCH (09:12)
[2021-11-08] MEDS: APIXABAN 2.5 MG TAB PO SCH (09:13)
[2021-11-08] MEDS: CHOLECALCIFEROL 5,000 UNITS 125 MCG TAB PO SCH (09:13)
[2021-11-08] MEDS: lisinopril 20 MG TAB PO SCH (09:13)
[2021-11-08] MEDS: METOPROLOL SUCC 50MG EXT REL TAB PO SCH (09:13)
[2021-11-08] MEDS: METOPROLOL SUCC 25MG EXT REL TAB PO SCH (09:14)
[2021-11-08] MEDS: VITAMIN B COMPLEX TAB PO SCH (09:14)
--- NOTE | 2021-11-08 10:33 | Orthopedic Progress Note ---
Date of Service November 08, 2021 Assessment & Plan (1) Intertrochanteric fracture of left femur: Plan: Postoperative day #3 status post left hip short cephalomedullary nailing for intertrochanteric femur fracture. -Pop and pain that occurred in her left hip yesterday was likely further avulsion of her lesser trochanter. Her main intertrochanteric fracture line remains stable with no change in alignment and no evidence of hardware failure. -She may continue with physical therapy; remain toe-touch weightbearing on her left hip. -She reports she is scheduled for transfer today to [facility]. Follow-up with me in orthopedic surgery clinic in 10 to 14 days after surgery. Orthopedics- specific instructions are in the discharge section of the chart. Admission and Anticipated Discharge Date Admission Date: November 04, 2021 Subjective Patient resting comfortably. Again, yesterday during therapy she felt a pop in her left hip with significant increase in her pain. She reports that her pain is significantly improved today. She says that she has not been up with physical therapy is since that occurred yesterday. Physical Exam Physical Exam: Examination of the left hip reveals dressings clean, dry, and intact. No significant swelling or tenderness to palpation in the thigh. Motor and sensory function is intact distally. Results & Data ([facility]) Vital Signs (Past 12 Hours) Vital Signs Temp Pulse Pulse Resp BP Pulse Ox O2 Del Method 11/08/21 07:39 36.7 C 85 20 145/74 H 94 Room Air 11/08/21 07:29 83 11/08/21 03:30 36.8 C 82 18 181/68 H 93 Room Air 11/07/21 22:46 36.8 C 85 18 187/65 H 93 Room Air 11/07/21 22:42 82
[2021-11-08] MEDS: traMADol HCL 50 MG TABLET PO PRN (11:30)
--- NOTE | 2021-11-08 11:31 | Discharge Summary ---
Date of Service November 08, 2021 Admission HPI Per Admitting Provider This is an 86-year-old female who has significant past medical history of PAF anticoagulated on elqiuis, chronic HFpEF, hypothyroidism RBBB, HTN, HLD, history of chronic gastroparesis and constipation, GERD, osteoporosis, history of TIA, macular degeneration, neuroleptic induced parkinsonism, depression and anxiety who presents to ED after standing a fall prior to arrival. Her and daughter are at bedside. Patient states that she woke up this morning and took her Synthroid and her tramadol due to having back pain and left leg pain. She went to the bathroom and then walked over to the window to open the window. As she was trying to open the window she lost her balance and fell on her left side and buttock. She denies hitting her head. She recalls all events and denies loss of consciousness. She was unable to get up and called for her . Prior to today's events she was in otherwise stable health without recent illness. She lives at home with her and does ambulate with a cane and her at her side. For the most part she is sedentary as states she lays down and/or sleeps approximately 16 hours a day. She does state that she could walk 1 flight of steps or ambulate 1 block without getting chest pain or shortness of breath. She denies any recent fever, chills, sweats, lightheadedness, dizziness, cough, URI symptoms, nausea, vomiting, abdominal pain, dysuria, increased urgency or frequency with urination, melena or hematochezia. She has been taking stool softeners been moving bowels regularly. She did not eat anything yet today and her last dose of Eliquis was approximately 8-9PM last evening. Admission Exam Per Admitting Provider Constitutional: Elderly, F, lying in bed, somewhat masked facies, vitals as above, NAD, lying in bed, answers questions appropriately Head: Normocephalic, Atraumatic Eyes: PERRL, conjunctivae normal, anicteric sclerae ENMT: external ear and nose normal, oropharynx normal Neck: trachea midline, no thyromegaly normal visual inspection, dry membranes Respiratory: normal respiratory effort, lungs clear to auscultation, no wheeze, rales, rhonchi. Normal insp/exp effort, no accessory muscle use Cardiovascular: RRR, no murmur, no edema Vessels: no JVD or carotid bruit Chest: normal inspection of chest Abdomen: normal bowel sounds, soft, nontender, no hepatosplenomegaly Musculoskeletal: no cyanosis or clubbing, active range of motion to bilateral upper extremities, left lower extremity is shortened and inverted Skin: no rashes, warm and dry normal turgor Neurologic: PERRL, EOMI, accommodation nl, no face palsy, no dysarthria CN's II-XI intact bilaterally and moves all extremities Psychiatric: A+Ox3, euthymic affect Lymphatic: no cervical or axillary lymphadenopathy : Catheter draining yellow urine Principal Diagnosis Intertrochanteric fracture of left femur, likely age-related osteoporotic fracture Mechanical fall Likely postop acute blood loss anemia Elevated LFT Discharge Exam GENERAL: Alert and oriented x3. NAD, on RA HEENT: No pallor, no icterus. Pupils equal, round and reactive to light. Oral mucosa moist. NECK: No JVD, no neck masses. HEART: S1 and S2 heard. Regular rate and rhythm. No murmur, no gallop. RESPIRATORY SYSTEM: Normal AP diameter. No accessory muscle use. No wheezing, no crackles. ABDOMEN: Soft, bowel sounds present, nontender, no distention. CENTRAL NERVOUS SYSTEM: No facial droop. Speech is clear. Obeys simple commands. Moves extremities. EXTREMITIES: Trace BLE edema, no erythema seen. LLE distal NV status wnl. Left hip dressing/clean/wo soakage Discharge Data Allergies Allergy/AdvReac Type Severity Reaction Status Date / Time adhesive Allergy Mild RASH, Verified 06/29/21 01:54 BLISTERS WITH TAPE erythromycin base Allergy Mild HIVES Verified 06/29/21 01:54 glycopyrrolate Allergy Mild HIVES Verified 06/29/21 01:54 Penicillins Allergy Mild hives Verified 06/29/21 01:54 hydrocodone AdvReac Intermediate SICK TO Verified 06/29/21 01:54 STOMACH acetaminophen [From Vicodin] AdvReac Unknown Gastrointestinal Verified 06/29/21 01:54 Upset Consultations 11/04/21 09:46 Consult Orthopedic Surgery Stat 11/04/21 09:47 ED Decision to Admit Stat 11/04/21 10:45 Consult Anesthesiology Routine Procedures Performed Operation Date: 11/05/21 07:00 Actual Procedures p Internal fixation of left hip with trochanteric femoral nail(Left) - Sravan Britton MD Ordered Studies 11/04/21 08:24 CT abd pelvis IV con only Stat CT cervical spine wo con Stat CT head/brain wo con Stat 11/05/21 FL femur LT 2V Routine 11/05/21 08:35 US RUQ [US liver] Routine Hospital Course (1) Intertrochanteric fracture of left femur: (2) PAF (paroxysmal atrial fibrillation): (3) Chronic heart failure with preserved ejection fraction (HFpEF): (4) Hypertension: Plan 86-year-old female who has significant past medical history of PAF anticoagulated on elqiuis, chronic HFpEF, hypothyroidism RBBB, HTN, HLD, history of chronic gastroparesis and constipation, GERD,osteoporosis, history of TIA, macular degeneration, neuroleptic induced parkinsonism, depression and anxiety who presents to ED after standing fall prior to arrival. She was managed for the following: #. Intertrochanteric fracture of left femur, likely age-related osteoporotic fracture #. Mechanical fall #. Likely post Op acute blood loss anemia: Hb dropped dropped from admitting Hb, c/t monitor. Patient presented with a fall on left side, mechanical nature. Admitting labs fairly WNL. MRSA screen negative. Last dose of Eliquis was 11/03 at 8 PM, currently on hold for surgery. Admitting imaging: CT AP/C-spine CT/CXR/femur XR/head CT/pelvic XR: Positive for intertrochanteric fracture of the left femoral neck with mild fracture lateral angulation and for osteopenia in C-spine CT. Otherwise no acute findings. 07/07/2021 echo with EF of 60 to 65%, mild aortic regurgitation, grade 1 diastolic dysfunction. Patient with allergy to penicillin, hives; discussed with pharmacist and does not appear patient has had cephalosporins in house, patient's outpatient chart in [facility] was reviewed as well Preoperative antibiotics with IV Vanco received. s/p Left TFN 11/[address] Britton DVT prophylaxis/PT/OT/pain management per orthopedics Pain management, nausea control PT/OT #. Elevated LFT AST/ALT/ALP elevated with fairly upper normal total bilirubin Unclear etiology, acute hepatitis panel sent/negative, patient with no right upper quadrant pain. 11/05 US liver: Prior cholecystectomy, no change in intrahepatic bile duct dilatation. Normal caliber CBD. LFT downtrending, follow-up at 1 week upon discharge. #. Other chronic medical conditions: Chronic HFpEF, PAF, HTN Continue with lisinopril and metoprolol, caution with BP meds during perioperative status. Eliquis resumed 11/07 AM. Pt had an episoded of SVT, a flutter on and off for about 10 min in AM of 11/08, longest was [id number]. Pt asymptomatic, electrolytes nl, trop nl, EKG Sinus in 90s, self terminated - pt received her daily metoprolol after the event, d/w cardio, will continue w/ current home meds regimen. #. Hypothyroidism, osteoporosis Vitamin D level 30.1, low normal Added vitamin D tablets, continue other home meds. Dispo: Med telemetry DNR/DNI PCP: Pelon Pt being discharged to SNF with following instructions at the point of discharge: Follow-up with your primary care physician within a week time. Follow-up with your bone doctor in 10 days upon discharge. Continue with physical therapy at retirement. You will need blood work CBC and CMP done in a week time and have the results forwarded to your primary care physician. You can take [id number] Tylenol for pain, use 500 mg extra strength up to 3 times a day only. You can use your home tramadol as prior as needed for severe pain. If your pain is not controlled/worsening you will need evaluation by your primary care physician for further pain management/pain meds prescription. Take your medications as prescribed. Total Time Total Time Spent Total Time Spent (In Minutes): 40 Discharge Plan Discharge Items Patient Disposition: Transfer Snf Fac Reason For Visit: L HIP FRACTURE Discharge Diagnosis: Intertrochanteric fracture of left femur, likely age-related osteoporotic fracture Mechanical fall Likely postop acute blood loss anemia Elevated LFT Activity: Per Instructions section Weightbearing: Left toe touch Weightbearing Comment: with walker Non-emergency contact: Surgeon Call non-emergency contact if: you have any medication questions, your pain is not controlled, your temperature is above 101.5, your wound has increased redness and your wound has increased drainage Follow-up/Referrals: Laura Bird MD [Primary Care Provider] - Sravan Britton MD [Surgeon] - (Follow up with Dr Britton in 2 weeks from the day of your surgery for your first post operative visit.) Diet: Heart Healthy and Low Sodium (2gm) Addtl Attending Provider Instructions: Follow-up with your primary care physician within a week time. Follow-up with your bone doctor in 10 days upon discharge. Continue with physical therapy at retirement. You will need blood work CBC and CMP done in a week time and have the results forwarded to your primary care physician. You can take [id number] Tylenol for pain, use 500 mg extra strength up to 3 times a day only. You can use your home tramadol as prior as needed for severe pain.If your pain is not controlled/worsening you will need evaluation by your primary care physician for further pain management/pain meds prescription. Take your medications as prescribed. Addtl Fence Repairman Provider Instructions: [facility] DISCHARGE INSTRUCTIONS: HIP FRACTURE SELF CARE INSTRUCTIONS: A. You are to ambulate with a walker or crutches for approximately 6 weeks. B. You are TOE TOUCH WEIGHT BEARING on your operative lower extremity for at least 6 weeks. C. Wear low heeled shoes with non-slip soles D. Be sure that your floors are free of things that could trip you throw rugs, electrical cords, and small objects. Avoid wet and waxed floors, especially with crutches/walker/cane. E. Try to walk several times a day with rest periods between. F. You may shower 48 hours after surgery and get the incision area wet, but DO NOT soak or submerge incision area in water. (No baths, swimming pools, hot tubs) G. You may have a large, band-aid like dressing over your incision (Aquacel). This will remain on your incision for 7 days, and then can be removed. You CAN shower with this on. If incision is leaking through the dressing, please call the office . H. Do NOT apply soap or any ointment/lotions directly over incision. I. You may use ice as needed to operative site. SPECIAL CARE INSTRUCTIONS: VERY IMPORTANT TO READ AND REVIEW A. You may be at risk for phlebitis or blood clots. a. Wear surgical stockings (GILLIAN hose) for 2 weeks after surgery to improve circulation and reduce swelling. b. Continue to take your Home Eliquis. This is your blood thinner. B. There are a few signs you need to watch for after you are home. Call [facility] at [phone] if you experience any of the following: a. If you have a temperature of 101 degrees or higher. b. Sudden increase in pain in your hip not relieved by rest or pain medication. c. Any fluid or drainage from the incision; redness of the incision. d. Shortness of breath or chest pain. C. Call your physician if: a. Temperature is greater than 101 degrees (F). b. Pain is not relieved by prescribed pain medications. c. Increase drainage or redness from incision. d. Unanswered questions or concerns. D. Pain Medication: a. You will be prescribed pain medication upon discharge that should last till your first post-operative appointment. b. If you experience nausea and/or skin rash, discontinue this medication and contact our office for an alternative medication. c. Caution- narcotic pain medication can cause constipation. FOLLOW UP VISIT: Please call [facility] at [phone] to schedule a follow up appointment 10-14 days from the date of your surgery date. Pending Studies at Discharge: No Stand-Alone Forms: [facility] Skilled Items Patient informed of condition?: Yes DNR: Yes Discharge Level of Care: Skilled Communicable Disease: No Discharge Prognosis: Stable Lines: None Urinary Catheter: No Medications and DC Order Prescriptions: New cholecalciferol (vitamin D3) 25 mcg (1,000 unit) capsule 25 mcg PO DAILY Qty: 30 0RF Continued famotidine 10 mg Tablet 10 mg PO DAILY PRN (Reason: gerd) lisinopril 20 mg tablet 20 mg PO DAILY metoprolol succinate 100 mg Tablet Extended Release 24 Hr 100 mg PO DAILY Rx Instructions: give with 25mg to = 125mg tramadol 50 mg tablet 50 mg PO Q6H PRN (Reason: Pain) levothyroxine [Synthroid] 88 mcg tablet 88 mcg PO DAILY@0630 mirtazapine 15 mg Tablet 7.5 mg PO HS metoprolol succinate 25 mg Tablet Extended Release 24 Hr 25 mg PO DAILY Rx Instructions: give with 100mg to = 125mg vitamin B complex [B Complex] Capsule 1 cap PO DAILY escitalopram oxalate 5 mg Tablet 5 mg PO DAILY melatonin 5 mg Tablet 5 mg PO HS PRN (Reason: Sleep) Eliquis 2.5 mg tablet 2.5 mg PO BID PreserVision AREDS-2 250-90-40-1 mg Capsule 2 tab PO DAILY Discharge Orders: Discharge Order (Routine); Ordered 11/08/21 Ordered By: Yue Brown Admission Data Admit Date/Time: 11/04/21 10:01 Attending Provider: Yue Brown Admit Provider: Delio Chand Primary Care Provider: Laura Bird Other Providers: Eligio Wagner ; Niles Izaguirre ; Jaycob Car ; Kristin Wiggins Thomas J ; Miriam Chao ; Saleem Peraza ; Thom Ceron ; Sina Mills Andrew J. ; John Paul Ardon ; Rick Beard ; Sravan Britton ; Osman Suggs ; Miriam Campos ; Daniel Booker ; Angelita Nuñez ; Jason Grant ; Sonia Krueger ; Collin Kelley ; Delio Chand ; Lorenzo Prather ; Sterling Musa Other Interventions: Discharge Summary Assessment (RN) Last Done: 11/08/21 11:23
--- NOTE | 2021-11-08 12:58 | Electrocardiogram Report ---
Test Reason : Blood Pressure : / mmHG Vent. Rate : 098 BPM Atrial Rate : 098 BPM P-R Int : 174 ms QRS Dur : 126 ms QT Int : 364 ms P-R-T Axes : 057 068 -27 degrees QTc Int : 464 ms Sinus rhythm with occasional Premature ventricular complexes and Premature atrial complexes Possible Left atrial enlargement Right bundle branch block T wave abnormality, consider inferolateral ischemia Abnormal ECG When compared with ECG of 04-NOV-2021 08:26, Premature ventricular complexes are now Present Premature atrial complexes are now Present ST no longer elevated in Lateral leads T wave inversion now evident in Lateral leads Confirmed by Jono Telles ([id number]) on 11/08/2021 12:57:36 PM Referred By: REFERRED SELF Confirmed By:Jono Telles
== END 2021-11-08 12:52 | DRG 481 ==
LOC: ED 08:13 → 2N 10:01 → SUATTDRO 10:01 → 2N 11:30